=== PATIENT | female | born 1930 | race Caucasian/White ===

== ENCOUNTER 2017-04-07 10:02 | Inpatient (IN) | payer OTHER, MEDICARE ==
--- NOTE | 2017-04-07 11:00 | HP ---
CHIEF COMPLAINT: fatigue with increased shortness of breath PCP: Dr Marcial HISTORY OF PRESENT ILLNESS: Patient is a 86 y/o female with a past medical history of copd, chf, diverticulitis, coronary artery disease, hypertension, peripheral vascular disease, severe left carotid artery stenosis, and coronary artery disease. Patient reports 6 days of progressive shortness of breath and dyspnea upon exertion. Patient also reports fatigue. She reports a recent evaluation last month at [facility] vascular surgery for her severe left carotid stenosis and surgical intervention was deferred at this time. She was evaluated by her PCP, Dr Marcial for worsening of shortness of breath and weakness her hemoglobin was note to be 6.6, patient was referred for admission. Recent Travel: none PAST MEDICAL HISTORY: see hpi PAST SURGICAL HISTORY: left hip replacement Social History: resides at home alone Smoking: smokes 1 pack of cigarrettes daily Alcohol: 3 mixed drinks daily Drugs: none Family History: non contributory to this admission Allergies Penicillins Allergy (Verified 06/09/15 11:06) Itching CATS Allergy (Intermediate, Uncoded 06/09/15 11:06) cough and wheezing. HOME MEDICATIONS: Home Medications Medication Instructions Recorded Cholecalciferol (Vitamin D3) 2,000 unit PO DAILY capsule 12/29/12 [Vitamin D3] Aspirin [Aspirin EC] 81 mg PO DAILY 06/09/15 Polyethylene Glycol 3350 [Miralax 17 gm PO DAILY bottle 06/11/15 119 gm Btl -] REVIEW OF SYSTEMS CONSTITUTIONAL: present: generalized weakness, malaise Absent: fever, chills, diaphoresis, , loss of appetite, weight change HEENT: Absent: rhinorrhea, nasal congestion, throat pain, throat swelling, difficulty swallowing, mouth swelling, ear pain, eye pain, visual changes CARDIOVASCULAR: Absent: chest pain, syncope, palpitations, irregular heart rate, lightheadedness , peripheral edema RESPIRATORY: present: shortness of breath, dyspnea with exertion Absent: cough, orthopnea, wheezing, stridor, hemoptysis GASTROINTESTINAL: Absent: abdominal pain, abdominal distension, nausea, vomiting, diarrhea, constipation, melena, hematochezia GENITOURINARY: Absent: dysuria, frequency, urgency, hesitancy, hematuria, flank pain, genital pain MUSCULOSKELETAL: Absent: myalgia, arthralgia, joint swelling, back pain, neck pain SKIN: Absent: rash, itching, pallor HEMATOLOGIC/IMMUNOLOGIC: Absent: easy bleeding, easy bruising, lymphadenopathy, frequent infections ENDOCRINE: Absent: unexplained weight gain, unexplained weight loss, heat intolerance, cold intolerance NEUROLOGIC: Absent: headache, focal weakness or paresthesias, dizziness, unsteady gait, seizure, mental status changes, bladder or bowel incontinence PSYCHIATRIC: Absent: anxiety, depression, suicidal or homicidal ideation, hallucinations. PHYSICAL EXAMINATION Vital Signs - 24 hr 04/07/17 10:41 Pulse Rate 98 H O2 Sat by Pulse 98 Oximetry (%) GENERAL: Awake, alert, and fully oriented, in no acute distress. HEAD: Normal with no signs of trauma. EYES: Pupils equal, round and reactive to light, extraocular movements intact, sclera anicteric, conjunctiva clear. No lid lag. EARS, NOSE, THROAT: Ears normal, nares patent, oropharynx clear without exudates. Moist mucous membranes. NECK: Normal range of motion, supple without lymphadenopathy, JVD, or masses. LUNGS: Breath sounds equal, course rhonchi bilateral apexes, diminished to bases , with inspiratory wheeze, and no crackles. No accessory muscle use. HEART: Regular rate and rhythm, normal S1 and S2 without murmur, rub or gallop. ABDOMEN: Soft, nontender, not distended, normoactive bowel sounds, no guarding, no rebound, no masses. No hepatomegaly or splenomegaly. MUSCULOSKELETAL: Normal range of motion at all joints. No bony deformities or tenderness. No CVA tenderness. UPPER EXTREMITIES: 2+ pulses, warm, well-perfused. No cyanosis. No clubbing. No peripheral edema. LOWER EXTREMITIES: 2+ pulses, warm, well-perfused. No calf tenderness. +2 peripheral edema with venous stasis changes (chronic as per patient) NEUROLOGICAL: Cranial nerves II-XII intact. Normal speech. Normal gait. PSYCHIATRIC: Cooperative. Good eye contact. Appropriate mood and affect. SKIN: Warm, dry, normal turgor, no rashes or lesions noted, normal capillary refill. ASSESSMENT/PLAN: f/e/n - low sodium diet then npo after midnight for GI eval - replete lytes prn ppx - hold ac due to severe anemia - protonix - scd/elmer - oob - pt Problem List - Problem (1) Microcytic anemia Assessment/Plan: -hemoglobin 5.9 baseline 13, iron studies pending and stool guiac - 2 units of prbc ordered, repeat hgb at 1900 Code(s): D50.9 - IRON DEFICIENCY ANEMIA, UNSPECIFIED (2) Hypertension Assessment/Plan: - continue enalapril and lopressor, b/p at goal - strict b/p monitoring Code(s): I10 - ESSENTIAL (PRIMARY) HYPERTENSION (3) COPD exacerbation Assessment/Plan: - pending chest xray, continue advair and spirva - prn albuterol nebulizers - keep spo2 above 92% with supplemental O2 prn Code(s): J44.1 - CHRONIC OBSTRUCTIVE PULMONARY DISEASE W (ACUTE) EXACERBATION (4) Coronary artery disease Assessment/Plan: - pending lipid profile Code(s): I25.10 - ATHSCL HEART DISEASE OF [place] CORONARY ARTERY W/O ANG PCTRS (5) Congestive heart failure Assessment/Plan: - pt appears euvolemic on exam, strict i/o and daily weight - EKG nsr septal infarct, unchanged from prior ekg 2015 - pending echo - continue spironolactone, lasix in between blood transfusions Code(s): I50.9 - HEART FAILURE, UNSPECIFIED Qualifiers: Congestive heart failure type: unspecified congestive heart failure type Visit type - Emergency Visit Emergency Visit: No - New Patient This patient is new to me today: Yes Date on this admission: 04/07/17 - Critical Care Critical Care patient: Yes Total Critical Care Time (in minutes): 45 Critical Care Statement: The care of this patient involved high complexity decision making to prevent further life threatening deterioration of the patient 's condition and/or to evaluate & treat vital organ system(s) failure or risk of failure.
[2017-04-07] MEDS ORDERED: ALBUTEROL SO4 2.5/IPRATROPIUM 0.5 INH SOL 3 ML VIAL.NEB. NEB ONE (12:00)
[2017-04-07 12:17] LABS: ALBUMIN 3.4 g/dl (3.5-5.0); ALK PHOS 71 U/L (32-92); ANION GAP 8 (8-16); BILIRUBIN,TOTAL 0.7 mg/dl (0.2-1.0); CALCIUM 9.1 mg/dl (8.4-10.2); CO2 20 mmol/L (22-28); CREATININE 0.7 mg/dl (0.6-1.3); GLUCOSE,RANDOM 113 mg/dl (74-106); MAGNESIUM 1.7 mg/dL (1.8-2.4); PHOSPHOROUS 3.5 mg/dl (2.5-4.6); SGOT/AST 18 U/L (10-42); SGPT/ALT 11 U/L (10-40); TOT PROT 6.2 g/dl (6.4-8.3)
[2017-04-07 12:18] LABS: INR 1.19 (0.82-1.09); PROTHROMBIN TIME (PATIENT) 13.3 SEC (10.2-13.0)
[2017-04-07 12:25] LABS: TROPONIN I 0.02 ng/ml (0.00-0.05)
[2017-04-07] MEDS: NICOTINE 14 MG/24 HOURS TOPICAL PATCH TD SCH (12:35)
[2017-04-07 12:43] LABS: MEAN CELL VOLUME 65.9 fl (80-96)
[2017-04-07 12:47] LABS: MCHC 30.3 g/dl (32.0-36.0); MEAN PLT VOLUME 6.8 fl (7.5-11.1); PLATELET COUNT 331 K/MM3 (134-434); RDW 18.2 % (11.6-15.6); WHITE BLOOD COUNT 9.3 K/mm3 (4.0-10.8)
[2017-04-07] MEDS ORDERED: ALBUTEROL SO4 0.083% IH SOL 2.5 MG/3 ML VIAL.NEB. NEB PRN (12:58)
[2017-04-07] MEDS ORDERED: MAGNESIUM SULF 50% (8.12 MEQ/2 ML-1 GM VIAL) IVPB ONE (13:00)
[2017-04-07] MEDS ORDERED: FUROSEMIDE 40 MG/4 ML INJECTABLE VIAL IVPUSH ONE ×2 (13:15→18:45)
[2017-04-07 14:03] VITALS: BMI 23.3
[2017-04-07] MEDS ORDERED: PT OWN MED DRAWER 7, Y5N ONE ×2 (14:12→21:58)
[2017-04-07] MEDS: TIOTROPIUM BROMIDE 18 MCG/INH (DEVICE W/ 5 CAPSULES) IH SCH (14:24)
--- NOTE | 2017-04-07 16:28 | EKG ---
Test Reason : Blood Pressure : / mmHG Vent. Rate : 087 BPM Atrial Rate : 087 BPM P-R Int : 224 ms QRS Dur : 084 ms QT Int : 378 ms P-R-T Axes : 080 007 101 degrees QTc Int : 454 ms SINUS RHYTHM WITH 1ST DEGREE A-V BLOCK ANTEROSEPTAL INFARCT , AGE UNDETERMINED POOR R WAVE PROGRESSION ST depression in V5, consider ischemia NONSPECIFIC ST ABNORMALITY in I, aVL, and V4 ABNORMAL ECG NO PREVIOUS ECGS AVAILABLE Confirmed by WALTER VAZQUEZ MD ([id number]) on 04/07/2017 4:28:07 PM Referred By: DOYLE DEL VALLE Confirmed By:WALTER VAZQUEZ MD
[2017-04-07 17:55] LABS: URINE APPEARANCE Clear; URINE BILIRUBIN Negative (NEGATIVE); URINE BLOOD Negative (NEGATIVE); URINE GLUCOSE (UA) Negative (NEGATIVE); URINE KETONE Negative (NEGATIVE); URINE NITRITE Negative (NEGATIVE); URINE PROTEIN Negative (NEGATIVE); URINE UROBILINOGEN 0.2 (0.2-1.0)
[2017-04-07 17:57] LABS: URINE COLOR YELLOW; URINE LEUK ESTERASE 1+ (NEGATIVE)
[2017-04-07 20:07] LABS: URINE RBC 0-2 /hpf (0-3)
[2017-04-07 20:16] LABS: PLATELET ESTIMATE ADEQUATE
[2017-04-07] MEDS: BUDESONIDE/FORMETEROL FUMARATE 80/4.5 mcg INHALER IH SCH (22:05)
[2017-04-08] MEDS ORDERED: traMADol HCL 50 MG TABLET PO STA (01:36)
[2017-04-08 08:11] LABS: SERUM IRON 14 ug/dL (27-139); TOTAL IRON BINDING CAPACITY 448 ug/dL (250-450); UIBC 434 ug/dL (118-369)
[2017-04-08 08:59] LABS: BASOPHIL 0.2 % (0-2.0); EOSINOPHIL 1.8 % (0-4.5); MCHC 31.7 g/dl (32.0-36.0); MEAN CELL VOLUME 72.4 fl (80-96); MEAN PLT VOLUME 7.2 fl (7.5-11.1); NEUTROPHILS 74.7 % (42.8-82.8); PLATELET COUNT 294 K/MM3 (134-434); RDW 22.7 % (11.6-15.6); WHITE BLOOD COUNT 9.7 K/mm3 (4.0-10.8)
[2017-04-08 09:23] LABS: ANION GAP 10 (8-16); CALCIUM 8.8 mg/dl (8.4-10.2); CHOLESTEROL 108 mg/dl; CO2 21 mmol/L (22-28); CREATININE 0.7 mg/dl (0.6-1.3); GLUCOSE,RANDOM 110 mg/dl (74-106); MAGNESIUM 1.7 mg/dL (1.8-2.4); PHOSPHOROUS 3.4 mg/dl (2.5-4.6)
[2017-04-08] MEDS ORDERED: MAGNESIUM SULFATE 2 GM in SODIUM CHLORIDE 100 ML IVPB ONE (09:35)
--- NOTE | 2017-04-08 09:37 | PN ---
Physical Exam: SUBJECTIVE: Patient seen and examined, reports feeling better, reports an improvement of shortness of breath. OBJECTIVE: Patient is a 86 y/o female with a past medical history of copd, chf, diverticulitis, coronary artery disease, hypertension, peripheral vascular disease, severe left carotid artery stenosis, and coronary artery disease. patient was admitted for severe microcytic anemia. Vital Signs Period Temp Pulse Resp BP Sys/Ornelas Pulse Ox Last 24 Hr 97.6 F-98.2 F 85-100 18-19 95-125/51-73 96-100 GENERAL: The patient is awake, alert, and fully oriented, in no acute distress. HEAD: Normal with no signs of trauma. EYES: PERRL, extraocular movements intact, sclera anicteric, conjunctiva clear. No ptosis. ENT: Ears normal, nares patent, oropharynx clear without exudates, moist mucous membranes. NECK: Trachea midline, full range of motion, supple. LUNGS: Breath sounds equal, diminished to bases, course rhonchi to billateral apexes, no wheezes, no crackles, no accessory muscle use. HEART: Regular rate and rhythm, S1, S2 without murmur, rub or gallop. ABDOMEN: Soft, nontender, nondistended, normoactive bowel sounds, no guarding, no rebound, no hepatosplenomegaly, no masses. EXTREMITIES: 2+ pulses, warm, well-perfused, no edema. NEUROLOGICAL: Cranial nerves II through XII grossly intact. Normal speech, gait not observed. PSYCH: Normal mood, normal affect. SKIN: Warm, dry, normal turgor, no rashes or lesions noted Laboratory Results - last 24 hr CBC WBC 9.7 K/mm3 (4.0-10.8) 04/08/17 07:00 RBC 4.00 M/mm3 (3.60-5.2) D 04/08/17 07:00 Hgb 9.2 GM/dl (10.7-15.3) L D 04/08/17 07:00 Hct 29.0 % (32.4-45.2) L D 04/08/17 07:00 MCV 72.4 fl (80-96) L 04/08/17 07:00 MCH 23.0 pg (25.7-33.7) L 04/08/17 07:00 MCHC 31.7 g/dl (32.0-36.0) L 04/08/17 07:00 RDW 22.7 % (11.6-15.6) H D 04/08/17 07:00 Plt Count 294 K/MM3 (134-434) 04/08/17 07:00 MPV 7.2 fl (7.5-11.1) L 04/08/17 07:00 Neutrophils % 74.7 % (42.8-82.8) 04/08/17 07:00 Neutrophils % (Manual) 68.0 % (42.8-82.8) 04/07/17 11:45 Band Neutrophils % 2.0 % (0-10) 04/07/17 11:45 Lymphocytes % 12.9 % (8-40) D 04/08/17 07:00 Lymphocytes % (Manual) 24.0 % (8-40) 04/07/17 11:45 Monocytes % 10.4 % (3.8-10.2) H 04/08/17 07:00 Monocytes % (Manual) 4 % (3.8-10.2) 04/07/17 11:45 Eosinophils % 1.8 % (0-4.5) 04/08/17 07:00 Eosinophils % (Manual) 2.0 % (0-4.5) 04/07/17 11:45 Basophils % 0.2 % (0-2.0) 04/08/17 07:00 Platelet Estimate Adequate 04/07/17 11:45 Retic Count 2.34 % (0.5-1.5) H 04/07/17 12:30 CMP Sodium 129 mmol/L (136-145) L 04/08/17 07:00 Potassium 3.9 mmol/L (3.5-5.1) D 04/08/17 07:00 Chloride 98 mmol/L (98-107) 04/08/17 07:00 Carbon Dioxide 21 mmol/L (22-28) L 04/08/17 07:00 Anion Gap 10 (8-16) 04/08/17 07:00 BUN 9 mg/dl (7-18) D 04/08/17 07:00 Creatinine 0.7 mg/dl (0.6-1.3) 04/08/17 07:00 Creat Clearance w eGFR > 60 (>60) 04/07/17 11:45 POC Glucometer 107 UNITS (80-120) 04/08/17 07:02 Random Glucose 110 mg/dl (74-106) H 04/08/17 07:00 Calcium 8.8 mg/dl (8.4-10.2) 04/08/17 07:00 Phosphorus 3.4 mg/dl (2.5-4.6) 04/08/17 07:00 Magnesium 1.7 mg/dL (1.8-2.4) L 04/08/17 07:00 Iron 14 ug/dL (27-139) L 04/07/17 12:30 TIBC 448 ug/dL (250-450) 04/07/17 12:30 Iron Saturation 3 % (15-55) L 04/07/17 12:30 Ferritin 7.179 ng/ml (6.9-282.5) 04/07/17 12:30 Total Bilirubin 0.7 mg/dl (0.2-1.0) D 04/07/17 11:45 AST 18 U/L (10-42) 04/07/17 11:45 ALT 11 U/L (10-40) 04/07/17 11:45 Alkaline Phosphatase 71 U/L (32-92) 04/07/17 11:45 Troponin I 0.02 ng/ml (0.00-0.05) 04/07/17 11:45 B-Natriuretic Peptide 2553.43 pg/ml (5-450) H 04/07/17 11:45 Total Protein 6.2 g/dl (6.4-8.3) L 04/07/17 11:45 Albumin 3.4 g/dl (3.5-5.0) L 04/07/17 11:45 Triglycerides 71 mg/dl (35-160) D 04/08/17 07:00 Cholesterol 108 mg/dl 04/08/17 07:00 Total LDL Cholesterol 71 mg/dl 04/08/17 07:00 HDL Cholesterol 23 mg/dl (29-89) L D 04/08/17 07:00 TSH 0.53 uIU/ml (0.358-3.74) D 04/08/17 08:00 Laboratory Tests 04/07/17 04/07/17 12:30 12:30 Iron 14 L TIBC 448 Iron Saturation 3 L Ferritin 7.179 Laboratory Tests 04/08/17 08:00 Stool Occult Blood Negative Active Medications Generic Name Dose Route Start Last Admin Trade Name Freq PRN Reason Stop Dose Admin Albuterol Sulfate 1 amp 04/07/17 12:58 Ventolin 0.083% Nebulizer Soln - NEB Q4H PRN SHORT OF BREATH/WHEEZING Budesonide/Formoterol Fumarate 2 puff 04/07/17 22:00 04/07/17 22:05 Symbicort 80/4.5mcg - IH 2 puff BID MUKUND Administration Cholecalciferol 2,000 unit 04/08/17 10:00 Vitamin D3 - PO DAILY MUKUND Enalapril Maleate 5 mg 04/08/17 10:00 Vasotec - PO DAILY [facility] Magnesium Sulfate 2 gm/ Sodium 104 mls @ 100 mls/hr 04/08/17 09:35 Chloride IVPB 04/08/17 10:37 ONCE ONE Metoprolol Succinate 25 mg 04/08/17 10:00 Toprol Xl - PO DAILY [facility] Nicotine 14 mg 04/07/17 12:15 04/07/17 12:35 Nicoderm Patch - TD Not Given DAILY MUKUND Pantoprazole Sodium 40 mg 04/08/17 10:00 Protonix - PO DAILY [facility] Polyethylene Glycol 17 gm 04/08/17 10:00 Miralax (For Daily Use) - PO DAILY [facility] Spironolactone 25 mg 04/08/17 10:00 Aldactone - PO DAILY [facility] Tiotropium [place] 1 puff 04/07/17 12:15 04/07/17 14:24 Spiriva - IH 1 puff DAILY MUKUND Administration IMAGING chest xray: no acute pathology, stable 3mm nodule of left upper lobe ASSESSMENT/PLAN: 1) heme microcytic anemia - hemoglobin 9.7 after 2 units of prbc, baseline 13, iron studies notable for anemia of chronic disease - pending repeat cbc at 1500, stool guiac negative - pending egd today, Dr Damon, GI 2) cardiovascular hypertension - continue enalapril and lopressor, b/p at goal - strict b/p monitoring coronary artery disease - lipid profile wnl congestive heart failure - patient remains euvolemic on exam, strict i/o and daily weight - pending echo results - ekg nsr septal infarct, appreciate cardiology input - continue sprionalactone 3) pulmonary copd excerbation - continue advair and spriva with prn albuterol nebulizers - keep spo2 above 92% with supplemental O2 prn f/e/n -npo fpr egd - replete lytes prn ppx - hold ac due to severe anemia - protonix - scd/elmer - oob - pt dispo: requires inpatient admission Problem List - Problems (1) Microcytic anemia Code(s): D50.9 - IRON DEFICIENCY ANEMIA, UNSPECIFIED (2) Hypertension Code(s): I10 - ESSENTIAL (PRIMARY) HYPERTENSION Qualifiers: Hypertension type: essential hypertension Qualified Code(s): I10 - Essential (primary) hypertension (3) COPD exacerbation Code(s): J44.1 - CHRONIC OBSTRUCTIVE PULMONARY DISEASE W (ACUTE) EXACERBATION (4) Coronary artery disease Code(s): I25.10 - ATHSCL HEART DISEASE OF [place] CORONARY ARTERY W/O ANG PCTRS Qualifiers: Coronary Disease-Associated Artery/Lesion type: [place] artery [place] vs. transplanted heart: [place] heart Associated angina: without angina Qualified Code(s): I25.10 - Atherosclerotic heart disease of [place] coronary artery without angina pectoris (5) Congestive heart failure Code(s): I50.9 - HEART FAILURE, UNSPECIFIED Qualifiers: Congestive heart failure type: unspecified congestive heart failure type Visit type - Emergency Visit Emergency Visit: Yes ED Registration Date: 04/07/17 Care time: The patient presented to the Emergency Department on the above date and was hospitalized for further evaluation of their emergent condition. - New Patient This patient is new to me today: No - Critical Care Critical Care patient: No
[2017-04-08] MEDS ORDERED: PT OWN MED DRAWER 7, Y5N ONE ×4 (09:59→22:09)
[2017-04-08] MEDS ORDERED: MAGNESIUM SULF 50% (8.12 MEQ/2 ML-1 GM VIAL) IVPB ONE (10:00)
[2017-04-08] MEDS: ENALAPRIL MALEATE 5 MG TABLET (FP) PO SCH (10:13)
[2017-04-08] MEDS: METOPROLOL SUCCINATE 25 MG TAB.SR.24H (FP) PO SCH (10:13)
[2017-04-08] MEDS: SPIRONOLACTONE 25 MG TABLET (FP) PO SCH (10:13)
[2017-04-08] MEDS: PANTOPRAZOLE 40 MG TABLET (FP) PO SCH (10:15)
[2017-04-08] MEDS: POLYETHYLENE GLYCOL 3350 119 GM BTL PO SCH (10:15)
[2017-04-08] MEDS: TIOTROPIUM BROMIDE 18 MCG/INH (DEVICE W/ 5 CAPSULES) IH SCH (10:15)
[2017-04-08] MEDS: NICOTINE 14 MG/24 HOURS TOPICAL PATCH TD SCH (10:15)
[2017-04-08] MEDS: CHOLECALCIFEROL (VITAMIN D3) 1,000 UNIT TABLET (FP) PO SCH (10:16)
[2017-04-08] MEDS: BUDESONIDE/FORMETEROL FUMARATE 80/4.5 mcg INHALER IH SCH ×2 (10:16→22:18)
[2017-04-08] MEDS ORDERED: SODIUM CHLORIDE 1,000 ML IV SCH (11:15)
[2017-04-08 12:22] LABS: THYROID STIMULATING HORMONE 0.53 uIU/ml (0.358-3.74); THYROXINE (T4) 8.1 ug/dl (4.8-13.9)
[2017-04-08] MEDS ORDERED: PROPOFOL 20 ML ONE ×2 (15:55)
--- NOTE | 2017-04-08 18:02 | CON.CARD ---
Consult Consult Specialty:: Cardiology Referred by:: Hospitalist Medicine Reason for Consultation:: Dyspnea - History of Present Illness Chief Complaint: Dyspnea, weakness and fatigue History of Present Illness: PCP: Dr Marcial HISTORY OF PRESENT ILLNESS: Patient is a 86 y/o female with a past medical history of copd, chf, diverticulitis, coronary artery disease, hypertension, peripheral vascular disease, severe left carotid artery stenosis, and coronary artery disease who presented with progressive shortness of breath, dyspnea upon exertion and fatigue. She reports a recent evaluation last month at [facility] vascular surgery for her severe left carotid stenosis and surgical intervention was deferred at this time. She was evaluated by her PCP, Dr Marcial for worsening of shortness of breath and weakness her hemoglobin was note to be 6.6, transfused 2 U pRBC with improvement in symptoms, on ASA chronically. - History Source History Provided By: Patient Limitations to Obtaining History: No Limitations - Past Medical History Cardio/Vascular: Yes: CAD Gastrointestinal: Yes: GI Bleed - Alcohol/Substance Use Hx Alcohol Use: Yes - Smoking History Smoking history: Current every day smoker Have you smoked in the past 12 months: Yes Aproximately how many cigarettes per day: 30 Home Medications - Allergies Allergies/Adverse Reactions: Allergies Allergy/AdvReac Type Severity Reaction Status Date / Time Penicillins Allergy Itching Verified 06/09/15 11:06 CATS Allergy Intermediate cough and Uncoded 06/09/15 11:06 wheezing. - Home Medications Home Medications: Ambulatory Orders Cholecalciferol (Vitamin D3) [Vitamin D3] 2,000 unit PO DAILY capsule 12/29/12 Aspirin [Aspirin EC] 81 mg PO DAILY 06/09/15 Polyethylene Glycol 3350 [Miralax 119 gm Btl -] 17 gm PO DAILY bottle 06/11/15 Tramadol HCl 50 PO PRN PRN 04/07/17 Review of Systems - Review of Systems Constitutional: reports: Weakness Respiratory: reports: Exercise Intolerance, SOB on Exertion Vital Signs: Vital Signs Temperature 98.1 F 04/08/17 14:00 Pulse Rate 104 H 04/08/17 14:00 Respiratory Rate 19 04/08/17 14:00 Blood Pressure 93/68 04/08/17 14:00 O2 Sat by Pulse Oximetry (%) 97 04/08/17 14:00 Constitutional: Yes: No Distress, Calm Neck: Yes: Supple Respiratory: Yes: Regular, CTA Bilaterally Gastrointestinal: Yes: Soft, Hypoactive Bowel Sounds Cardiovascular: Yes: Regular Rate and Rhythm JVD: No Carotid Bruit: No Heart Sounds: Yes: S1, S2 Murmur: Yes: Systolic Murmur, Grade 1 Edema: No - Other Data Labs, Other Data: INR, PTT INR 1.19 (0.82-1.09) 04/07/17 11:45 NSR @84 PRWP Imaging - Results Chest X-ray: Report Reviewed (No acute pathology, stable 3mm nodule of left upper lobe) Problem List - Problems (1) Diastolic dysfunction without heart failure Code(s): I51.9 - HEART DISEASE, UNSPECIFIED (2) Dieulafoy lesion of stomach Code(s): K31.82 - DIEULAFOY LESION (HEMORRHAGIC) OF STOMACH AND DUODENUM (3) Coronary artery disease Code(s): I25.10 - ATHSCL HEART DISEASE OF [place] CORONARY ARTERY W/O ANG PCTRS Qualifiers: Coronary Disease-Associated Artery/Lesion type: [place] artery [place] vs. transplanted heart: [place] heart Associated angina: without angina Qualified Code(s): I25.10 - Atherosclerotic heart disease of [place] coronary artery without angina pectoris (4) Hypertension Code(s): I10 - ESSENTIAL (PRIMARY) HYPERTENSION Qualifiers: Hypertension type: essential hypertension Qualified Code(s): I10 - Essential (primary) hypertension (5) Microcytic anemia Code(s): D50.9 - IRON DEFICIENCY ANEMIA, UNSPECIFIED (6) Carotid stenosis, left Code(s): I65.22 - OCCLUSION AND STENOSIS OF LEFT CAROTID ARTERY (7) History of esophagogastroduodenoscopy Code(s): Z98.890 - OTHER SPECIFIED POSTPROCEDURAL STATES Assessment/Plan 1. 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 HTN/HCVD 3. CAD, angina pectoris 4. Diastolic dysfunction 5. HTN/HCVD 6. COPD 7. Left carotid stenosis P:1. Monitor Hgb post transfusion and transfuse to maintain Hgb>8.0 2. Continue PPI, hold resumption of ASA for one week to heal mucosa 3. Continue Vasotec 5 qd,Toprol XL 25 qd and Aldactone 25 qd 4. BD as needed 5. May d/c from CV standpoint once Hgb stable with f/u in office , vascular surgery f/u as outpatient 6. Thank you for consultative opportunity
[2017-04-08 18:48] LABS: ANION GAP 9 (8-16); CALCIUM 8.9 mg/dl (8.4-10.2); CO2 22 mmol/L (22-28); CREATININE 0.6 mg/dl (0.6-1.3); GLUCOSE,RANDOM 98 mg/dl (74-106)
[2017-04-08 18:52] LABS: BASOPHIL 0.5 % (0-2.0); EOSINOPHIL 1.5 % (0-4.5); MCH 22.4 pg (25.7-33.7); MCHC 30.8 g/dl (32.0-36.0); MEAN CELL VOLUME 72.7 fl (80-96); MEAN PLT VOLUME 7.8 fl (7.5-11.1); NEUTROPHILS 77.9 % (42.8-82.8); PLATELET COUNT 319 K/MM3 (134-434); WHITE BLOOD COUNT 9.6 K/mm3 (4.0-10.8)
[2017-04-08 23:38] LABS: ANISOCYTOSIS 2+; HYPOCHROMIA 2+; MICROCYTOSIS 1+; TARGET CELLS 1+; TEAR DROP CELLS 1+
[2017-04-09 06:52] VITALS: BP 128/63; PULSE 64; TEMP 98
[2017-04-09 08:23] LABS: BASOPHIL 0.5 % (0-2.0); EOSINOPHIL 1.6 % (0-4.5); MCH 23.3 pg (25.7-33.7); MCHC 31.8 g/dl (32.0-36.0); MEAN CELL VOLUME 73.1 fl (80-96); MEAN PLT VOLUME 7.2 fl (7.5-11.1); NEUTROPHILS 78.6 % (42.8-82.8); PLATELET COUNT 323 K/MM3 (134-434); RDW 22.7 % (11.6-15.6); WHITE BLOOD COUNT 10.1 K/mm3 (4.0-10.8)
[2017-04-09 08:56] LABS: ALBUMIN 3.7 g/dl (3.5-5.0); ALK PHOS 77 U/L (32-92); ANION GAP 8 (8-16); BILIRUBIN,TOTAL 1.2 mg/dl (0.2-1.0); CALCIUM 9.3 mg/dl (8.4-10.2); CO2 21 mmol/L (22-28); CREATININE 0.6 mg/dl (0.6-1.3); GLUCOSE,RANDOM 137 mg/dl (74-106); MAGNESIUM 1.8 mg/dL (1.8-2.4); PHOSPHOROUS 3.3 mg/dl (2.5-4.6); SGOT/AST 21 U/L (10-42); SGPT/ALT 12 U/L (10-40); TOT PROT 6.7 g/dl (6.4-8.3)
[2017-04-09] MEDS ORDERED: FERROUS SO4 325 MG TABLET (FP) PO SCH (09:30)
[2017-04-09] MEDS ORDERED: PT OWN MED DRAWER 7, Y5N ONE (09:57)
[2017-04-09] MEDS: SPIRONOLACTONE 25 MG TABLET (FP) PO SCH (09:58)
[2017-04-09] MEDS: PANTOPRAZOLE 40 MG TABLET (FP) PO SCH (09:59)
[2017-04-09] MEDS: POLYETHYLENE GLYCOL 3350 119 GM BTL PO SCH (10:00)
[2017-04-09] MEDS: CHOLECALCIFEROL (VITAMIN D3) 1,000 UNIT TABLET (FP) PO SCH (10:00)
[2017-04-09] MEDS: ENALAPRIL MALEATE 5 MG TABLET (FP) PO SCH (10:00)
[2017-04-09] MEDS: BUDESONIDE/FORMETEROL FUMARATE 80/4.5 mcg INHALER IH SCH (10:01)
[2017-04-09] MEDS: TIOTROPIUM BROMIDE 18 MCG/INH (DEVICE W/ 5 CAPSULES) IH SCH (10:01)
[2017-04-09] MEDS: METOPROLOL SUCCINATE 25 MG TAB.SR.24H (FP) PO SCH (10:01)
[2017-04-09] MEDS: NICOTINE 14 MG/24 HOURS TOPICAL PATCH TD SCH (10:01)
--- NOTE | 2017-04-09 11:22 | PN ---
Physical Exam: SUBJECTIVE: Patient seen and examined at the bedside. States she feels better, wants to go home. Assured her we are working on a safe discharge plan. States she lives alone but has an aide that helps her with her. OBJECTIVE: Vital Signs Period Temp Pulse Resp BP Sys/Ornelas Pulse Ox Last 24 Hr 97.8 F-98.1 F 64-104 17-20 93-147/35-70 96-98 GENERAL: The patient is awake, alert, and fully oriented, in no acute distress. HEAD: Normal with no signs of trauma. EYES: PERRL, extraocular movements intact, sclera anicteric, conjunctiva clear. ENT: Ears normal, nares patent, oropharynx clear without exudates, moist mucous membranes. NECK: Trachea midline, full range of motion, supple. LUNGS: Breath sounds equal, diminished at the bases, tolerating room air. HEART: Regular rate and rhythm, S1, S2 without murmur, rub or gallop. ABDOMEN: Soft, nontender, nondistended, normoactive bowel sounds, no guarding, no rebound, no hepatosplenomegaly, no masses. EXTREMITIES: 2+ pulses, warm, well-perfused, no edema. NEUROLOGICAL: Cranial nerves II through XII grossly intact. Normal speech, gait not observed. PSYCH: Normal mood, normal affect. SKIN: Warm, dry, normal turgor, no rashes or lesions noted. Laboratory Results - last 24 hr 04/08/17 04/08/17 04/08/17 08:00 15:20 15:20 WBC 9.6 RBC 4.18 Hgb 9.4 L Hct 30.4 L MCV 72.7 L MCH 22.4 L MCHC 30.8 L RDW 23.0 H Plt Count 319 MPV 7.8 Neutrophils % 77.9 Lymphocytes % 11.3 Monocytes % 8.8 Eosinophils % 1.5 Basophils % 0.5 Hypochromia 2+ Anisocytosis 2+ Microcytosis 1+ Target Cells 1+ Tear Drop Cells 1+ Sodium 129 L Potassium 4.1 Chloride 98 Carbon Dioxide 22 Anion Gap 9 BUN 9 Creatinine 0.6 Creat Clearance w eGFR Random Glucose 98 Calcium 8.9 Phosphorus Magnesium Total Bilirubin AST ALT Alkaline Phosphatase Total Protein Albumin TSH 0.53 D 04/09/17 04/09/17 08:00 08:00 WBC 10.1 RBC 4.16 Hgb 9.7 L Hct 30.4 L MCV 73.1 L MCH 23.3 L MCHC 31.8 L RDW 22.7 H Plt Count 323 MPV 7.2 L Neutrophils % 78.6 Lymphocytes % 11.8 Monocytes % 7.5 Eosinophils % 1.6 Basophils % 0.5 Hypochromia Anisocytosis Microcytosis Target Cells Tear Drop Cells Sodium 133 L Potassium 4.0 Chloride 104 Carbon Dioxide 21 L Anion Gap 8 BUN 6 L D Creatinine 0.6 Creat Clearance w eGFR > 60 Random Glucose 137 H D Calcium 9.3 Phosphorus 3.3 Magnesium 1.8 Total Bilirubin 1.2 H D AST 21 ALT 12 Alkaline Phosphatase 77 Total Protein 6.7 Albumin 3.7 TSH Active Medications Generic Name Dose Route Start Last Admin Trade Name Freq PRN Reason Stop Dose Admin Albuterol Sulfate 1 amp 04/07/17 12:58 Ventolin 0.083% Nebulizer Soln - NEB Q4H PRN SHORT OF BREATH/WHEEZING Budesonide/Formoterol Fumarate 2 puff 04/07/17 22:00 04/09/17 10:01 Symbicort 80/4.5mcg - IH 2 puff BID MUKUND Administration Cholecalciferol 2,000 unit 04/08/17 10:00 04/09/17 10:00 Vitamin D3 - PO 2,000 unit DAILY MUKUND Administration Enalapril Maleate 5 mg 04/08/17 10:00 04/09/17 10:00 Vasotec - PO 5 mg DAILY MUKUND Administration Ferrous Sulfate 325 mg 04/09/17 09:30 Feosol - PO DAILY [facility] Metoprolol Succinate 25 mg 04/08/17 10:00 04/09/17 10:01 Toprol Xl - PO 25 mg DAILY MUKUND Administration Nicotine 14 mg 04/07/17 12:15 04/09/17 10:01 Nicoderm Patch - TD Not Given DAILY MUKUND Pantoprazole Sodium 40 mg 04/08/17 10:00 04/09/17 09:59 Protonix - PO 40 mg DAILY MUKUND Administration Polyethylene Glycol 17 gm 04/08/17 10:00 04/08/17 10:15 Miralax (For Daily Use) - PO Not Given DAILY MUKUND Spironolactone 25 mg 04/08/17 10:00 04/09/17 09:58 Aldactone - PO 25 mg DAILY MUKUND Administration Tiotropium [place] 1 puff 04/07/17 12:15 04/09/17 10:01 Spiriva - IH 1 puff DAILY MUKUND Administration ASSESSMENT/PLAN: Patient is a 86 y/o female with a past medical history of copd, chf, diverticulitis, coronary artery disease, hypertension, peripheral vascular disease, severe left carotid artery stenosis, and coronary artery disease. patient was admitted for severe microcytic anemia. EGD, reviewed, PPI, avoid nsaids, follow up within 1 week with PCP Hematology: Microcytic anemia, improved S/P 2 units of prbcs hmg/hct 9.7/32.4 Started on Iron supplements daily Stool guiac negative EGD recommends: PPI daily, clears and advance slowly, no ASA/NSAIDs x 1 week, possible colonscopy if symptoms do not resolve. Repeat CBC in 1 week. Cardiovascular: hypertension, chronic On enalapril and Lopressor, b/p stable coronary artery disease Lipid profile reviewed CHF Monitor weights, intake and output Cleared by cardiology for d/c with followup in 1 week Pulmonary: copd excerbation, improved/resolved Lungs mostly clear to auscultation, continue, Advair, Spriva and Albuterol Smoking cessation, patient is in agreement Disposition: discharge home today with cardiology follow up in 1 week. Will need repeat CBC to assure her CBC is normalizing back to baseline. full code.
--- NOTE | 2017-04-09 12:54 | DS ---
Physical Exam: SUBJECTIVE: Patient seen and examined OBJECTIVE: Vital Signs Period Temp Pulse Resp BP Sys/Ornelas Pulse Ox Last 24 Hr 97.8 F-98.1 F 64-104 17-20 93-147/35-70 96-98 PHYSICAL EXAM GENERAL: The patient is awake, alert, and fully oriented, in no acute distress. HEAD: Normal with no signs of trauma. EYES: PERRL, extraocular movements intact, sclera anicteric, conjunctiva clear. ENT: Ears normal, nares patent, oropharynx clear without exudates, moist mucous membranes. NECK: Trachea midline, full range of motion, supple. LUNGS: Breath sounds equal, diminished at the bases, tolerating room air. HEART: Regular rate and rhythm, S1, S2 without murmur, rub or gallop. ABDOMEN: Soft, nontender, nondistended, normoactive bowel sounds, no guarding, no rebound, no hepatosplenomegaly, no masses. EXTREMITIES: 2+ pulses, warm, well-perfused, no edema. NEUROLOGICAL: Cranial nerves II through XII grossly intact. Normal speech, gait not observed. PSYCH: Normal mood, normal affect. SKIN: Warm, dry, normal turgor, no rashes or lesions noted. LABS Laboratory Results - last 24 hr 04/08/17 04/08/17 04/09/17 15:20 15:20 08:00 WBC 9.6 10.1 RBC 4.18 4.16 Hgb 9.4 L 9.7 L Hct 30.4 L 30.4 L MCV 72.7 L 73.1 L MCH 22.4 L 23.3 L MCHC 30.8 L 31.8 L RDW 23.0 H 22.7 H Plt Count 319 323 MPV 7.8 7.2 L Neutrophils % 77.9 78.6 Lymphocytes % 11.3 11.8 Monocytes % 8.8 7.5 Eosinophils % 1.5 1.6 Basophils % 0.5 0.5 Hypochromia 2+ Anisocytosis 2+ Microcytosis 1+ Target Cells 1+ Tear Drop Cells 1+ Sodium 129 L Potassium 4.1 Chloride 98 Carbon Dioxide 22 Anion Gap 9 BUN 9 Creatinine 0.6 Creat Clearance w eGFR Random Glucose 98 Calcium 8.9 Phosphorus Magnesium Total Bilirubin AST ALT Alkaline Phosphatase Total Protein Albumin 04/09/17 08:00 WBC RBC Hgb Hct MCV MCH MCHC RDW Plt Count MPV Neutrophils % Lymphocytes % Monocytes % Eosinophils % Basophils % Hypochromia Anisocytosis Microcytosis Target Cells Tear Drop Cells Sodium 133 L Potassium 4.0 Chloride 104 Carbon Dioxide 21 L Anion Gap 8 BUN 6 L D Creatinine 0.6 Creat Clearance w eGFR > 60 Random Glucose 137 H D Calcium 9.3 Phosphorus 3.3 Magnesium 1.8 Total Bilirubin 1.2 H D AST 21 ALT 12 Alkaline Phosphatase 77 Total Protein 6.7 Albumin 3.7 HOSPITAL COURSE: Date of Admission:04/07/17 Date of Discharge: 04/09/17 ASSESSMENT/PLAN: Patient is a 86 y/o female with a past medical history of copd, chf, diverticulitis, coronary artery disease, hypertension, peripheral vascular disease, severe left carotid artery stenosis, and coronary artery disease. patient was admitted for severe microcytic anemia. EGD, reviewed, PPI, avoid nsaids, follow up within 1 week with PCP Hematology: Microcytic anemia, improved S/P 2 units of prbcs hmg/hct 9.7/32.4 Started on Iron supplements daily Stool guiac negative EGD recommends: PPI daily, clears and advance slowly, no ASA/NSAIDs x 1 week, possible colonscopy if symptoms do not resolve. Repeat CBC in 1 week. Cardiovascular: hypertension, chronic On enalapril and Lopressor, b/p stable coronary artery disease Lipid profile reviewed CHF Monitor weights, intake and output Cleared by cardiology for d/c with followup in 1 week Pulmonary: copd excerbation, improved/resolved Lungs mostly clear to auscultation, continue, Advair, Spriva and Albuterol Smoking cessation, patient is in agreement Disposition: discharge home today with cardiology follow up in 1 week. Will need repeat CBC to assure her CBC is normalizing back to baseline. full code. Minutes to complete discharge: 60 Discharge Summary Reason For Visit: BLOOD LOSS, ANEMIA, COPD, VASCULOPATHY Current Active Problems COPD exacerbation (Acute) Carotid stenosis, left (Acute) Congestive heart failure (Acute) Coronary artery disease (Acute) Diastolic dysfunction without heart failure (Acute) Dieulafoy lesion of stomach (Acute) History of esophagogastroduodenoscopy (Acute) Hypertension (Acute) Microcytic anemia (Acute) Condition: Stable - Instructions Diet, Activity, Other Instructions: Mrs. Maxine Back had a EGD done on 04/08/2017. As per the exam, we recommend the followin. Protonix daily 1 hour before breakfast 2. Continue with clear liquid diet and advance slowly 3. No aspirin or NSAIDs for 5 to 7 days 4[address] Please see Dr. Marcial in 1 week and have your blood work re done, with possibility of colonoscopy 5. Continue Vasotec 5 qd,Toprol XL 25 qd and Aldactone 25 qd Please follow up with Dr. Sherman (Cardiology) within one week after discharge. Plse call and make an appointment @ for follow up. Disposition: HOME - Home Medications Comprehensive Discharge Medication List: Ambulatory Orders Cholecalciferol (Vitamin D3) [Vitamin D3] 2,000 unit PO DAILY capsule 12/29/12 Polyethylene Glycol 3350 [Miralax 119 gm Btl -] 17 gm PO DAILY bottle 06/11/15 Albuterol 0.083% Nebulizer Miley [Ventolin 0.083% Nebulizer Soln -] 1 amp NEB Q4H PRN amp 04/09/17 Budesonide/Formeterol Fumarate [SYMBICORT 80/4.5mcg -] 2 puff IH BID #1 inhaler 04/09/17 Ferrous Sulfate [Feosol] 325 mg PO DAILY #30 tab 04/09/17 Nicotine Patch [Nicoderm Patch -] 14 mg TD DAILY patch 04/09/17 Pantoprazole Sodium [Protonix -] 40 mg PO DAILY #30 tablet.ec 04/09/17 This patient is new to me today: Yes Date on this admission: 04/09/17 Emergency Visit: Yes ED Registration Date: 04/07/17 Care time: The patient presented to the Emergency Department on the above date and was hospitalized for further evaluation of their emergent condition. Critical Care patient: No - Discharge Referral Referred to [facility] Med P.C.: No
== END 2017-04-09 14:19 | disposition home or self-care (01) | DRG 811 ==
LOC: FM/S 10:02
PROVIDERS: ADMIT Internal Medicine; ATTEND Nurse Practitioner Family
PROC: 30233N1 Transfusion of Nonautologous Red Blood Cells into Peripheral Vein, Percutaneous Approach (ICD-10-PCS; principal; 2017-04-07)
PROC: 0W3P8ZZ Control Bleeding in Gastrointestinal Tract, Via Natural or Artificial Opening Endoscopic (ICD-10-PCS; 2017-04-08)
DX: D50.8 Other iron deficiency anemias (principal); K31.82 Dieulafoy lesion (hemorrhagic) of stomach and duodenum; J44.1 Chronic obstructive pulmonary disease with (acute) exacerbation; I25.10 Atherosclerotic heart disease of native coronary artery without angina pectoris; I73.89 Other specified peripheral vascular diseases; F17.210 Nicotine dependence, cigarettes, uncomplicated; I65.22 Occlusion and stenosis of left carotid artery; I11.0 Hypertensive heart disease with heart failure; Z88.0 Allergy status to penicillin
CPT/HCPCS: 36415; 36430; 71020-TC; 80048; 80053; 80061; 81003; 81015; 82272; 82728; 83540; 83550; 83735; 83880; 84100; 84436; 84443; 84484; 85025; 85044; 85610; 86850; 86900; 86901; 86922; 87086; 93005; 93306-TC; 94010; 94640; 97116-GP; 97161-GP; P9038; P9058

== ENCOUNTER 2017-05-31 18:20 | Observation (INO) | payer OTHER, MEDICARE ==
--- NOTE | 2017-05-31 19:28 | PDOC ---
History of Present Illness - General History Source: Patient Exam Limitations: No Limitations - History of Present Illness Initial Comments: 05/31/17 19:48 The patient is a 86-year-old female, with a significant past medical history of copd, chf, diverticulitis, coronary artery disease, hypertension, peripheral vascular disease, severe left carotid artery stenosis, and coronary artery disease, who presents to the ED with weakness for the past few days. The patient states that weakness is worse in the lower extremities. Today, the patient was unable to get to the commode from bed. She was admitted in the past for severe anemia and had a HGB of 5.6. Pt was transfused two units and was scoped but a source of bleeding was not found. PAST MEDICAL HISTORY: copd, chf, diverticulitis, coronary artery disease, hypertension, peripheral vascular disease, severe left carotid artery stenosis, and coronary artery disease PAST SURGICAL HISTORY: no significant history FAMILY HISTORY: no pertinent history HISTORY: Pt lives with family and is retired. MEDICATIONS: reviewed ALLERGIES: As per nursing notes Adult ROS General: (+)weakness. No fevers or chills, no weight loss HEENT: No change in vision. No sore throat,. No ear pain CardioVascular: No chest pain or shortness of breath Respiratory:No cough, or wheezing. Gastrointestinal: no nausea, vomiting, diarrhea or constipation, No rectal bleeding Genitourinary: No dysuria, hematuria, or frequency Musculoskeletal: No joint or muscle pain or swelling Neurologic: No headache, vertigo, dizziness or loss of consciousness Psychiatric: nor depression Skin: No rashes or easy bruising Endocrine: no increased thirst or abnormal weight change Allergic: no skin or latex allergy All other systems reviewed and normal Adult Exam: General: Well-nourished well-developed individual, no acute distress HEENT: Throat: (+)Dry mucous membranes. No tonsils normal, no erythema or exudate Neck: Supple, no meningeal signs, no lymphadenopathy Eyes::Pupils equal reactive and round, extraocular motion intact Chest: Nontender to palpation Cardiac: S1-S2 normal, regular rate and rhythm, no murmurs rubs or gallops Respiratory: (+)Tachypneic, decreased breath sounds bilaterally Abdomen: Soft, nondistended, normal bowel sounds, nontender to palpation diffusely Extremities: Warm, dry, no cyanosis, clubbing, or edema Skin: No rashes Neuro: Alert and oriented x3, nonfocal exam, grossly intact, normal gait Psych: Normal mood and affect <Julia Yanez - Last Filed: 05/31/17 20:41> - General History Source: Patient Exam Limitations: No Limitations - History of Present Illness Initial Comments: Medical decision making This is an 86-year-old female complaining of generalized weakness. We'll obtain a workup to rule out an infectious cause as patient is a little hypothermic and tachycardic. Sepsis workup protocol activated, labs sent including CBC, comp, blood cultures , urine, urine culture, EKG, chest x-ray, lactic acid. We will reassess post and a fluid bolus as patient does have a history of congestive heart failure and coronary artery disease. Chest x-ray no acute pathology as reviewed by me A portion of this note was documented by scribe services under my direction. I have reviewed the details of the note, within reason, and agree with the documentation. The case summary and management plan written by me 05/31/17 21:15 Reassessment patient remains hemodynamically stable in no acute distress however is complaining of some back pain which is chronic for her and requesting a Percocet which is what she would normally take for will medicate with a Percocet for her pain 05/31/17 21:18 assessment and plan: This is a 86-year-old female who comes in complaining of generalized weakness. Patient had a workup that included an EKG that was abnormal but unchanged from prior, a normal chest x-ray. Patient's white count was elevated with a left shift and her urine was positive for an acute urinary tract infection. Patient given ceftriaxone to cover her for the urine infection Given the patient's underlying comorbidities and age she will be in placed in an observation bed overnight and reevaluated in the morning to make sure that her clinical condition is improved prior to discharge. Discussed the admission with the hospitalist Dr. Shah who was accepted the patient to the observation bed <Maggie Yin I - Last Filed: 05/31/17 21:21> - General Chief Complaint: Weakness Stated Complaint: WEAKNESS Time Seen by Provider: 05/31/17 19:19 Past History <Julia Yanez - Last Filed: 05/31/17 20:41> - Past Medical History Anemia: Yes Asthma: No Cancer: No Cardiac Disorders: No CVA: No COPD: Yes CHF: No Dementia: No Diabetes: No GI Disorders: No Disorders: No HTN: Yes Hypercholesterolemia: No Liver Disease: No Seizures: No Thyroid Disease: No - Surgical History Abdominal Surgery: Yes (DIVERTICULITIS) Appendectomy: No Cardiac Surgery: No Cholecystectomy: No GI Surgery: Yes (PARITAL COLECTOMY) Lung Surgery: No Neurologic Surgery: No Orthopedic Surgery: Yes - Suicide/Smoking/Psychosocial Hx Smoking History: Current every day smoker Have you smoked in the past 12 months: Yes Number of Cigarettes Smoked Daily: 10 Information on smoking cessation initiated: Yes 'Breaking Loose' booklet given: 05/31/17 Hx Alcohol Use: Yes Drug/Substance Use Hx: No Substance Use Type: None Hx Substance Use Treatment: No <Maggie Yin I - Last Filed: 05/31/17 21:21> - Past Medical History Allergies/Adverse Reactions: Allergies Allergy/AdvReac Type Severity Reaction Status Date / Time Penicillins Allergy Itching Verified 05/31/17 18:26 CATS Allergy Intermediate cough and Uncoded 05/31/17 18:26 wheezing. Home Medications: Ambulatory Orders Cholecalciferol (Vitamin D3) [Vitamin D3] 2,000 unit PO DAILY capsule 12/29/12 Oxycodone HCl/Acetaminophen [Percocet 5-325 mg Tablet] 1 tab PO BID 05/31/17 Tiotropium [place] [Spiriva] 1 inh PO DAILY 05/31/17 Review of Systems - Review of Systems Able to Perform ROS?: Yes <Julia Yanez - Last Filed: 05/31/17 20:41> *Physical Exam - Vital Signs Last Vital Signs Temp Pulse Resp BP Pulse Ox 97.3 F L 102 H 20 136/94 97 05/31/17 18:20 05/31/17 18:20 05/31/17 18:20 05/31/17 18:20 05/31/17 18:20 <Julia Yanez - Last Filed: 05/31/17 20:41> - Vital Signs Last Vital Signs Temp Pulse Resp BP Pulse Ox 97.3 F L 102 H 20 136/94 97 05/31/17 18:20 05/31/17 18:20 05/31/17 18:20 05/31/17 18:20 05/31/17 18:20 <Maggie Yin I - Last Filed: 05/31/17 21:21> Heart Score/ECG Review - ECG Intrepretation Comment:: 05/31/17 20:42 EKG was reviewed by Dr. Martin at 20:22. Impression: Sinus tachycardia with 1st degree AV block with premature supraventricular complexes. Septal infarct, age undetermined. ST and T wave abnormality, consider lateral ischemia. Vent. rate: 118 bpm OH interval: 210 ms QTc: 465 ms <Julia Yanez - Last Filed: 05/31/17 20:41> ED Treatment Course - LABORATORY CBC & Chemistry Diagram: 05/31/17 19:30 05/31/17 19:30 <Julia Yanez - Last Filed: 05/31/17 20:41> - LABORATORY CBC & Chemistry Diagram: 05/31/17 19:30 05/31/17 19:30 <Maggie Yin I - Last Filed: 05/31/17 21:21> *DC/Admit/Observation/Transfer - Attestations Scribe Attestion: 05/31/17 19:52 Documentation prepared by Julia Yanez, acting as medical laboratory assistant for Maggie Yin MD. <Julia Yanez - Last Filed: 05/31/17 20:41> - Discharge Dispostion Admit: Yes <Maggie Yin I - Last Filed: 05/31/17 21:21> Diagnosis at time of Disposition: Cystitis - Discharge Dispostion Condition at time of disposition: Stable - Referrals Referrals: Lawson Marcial MD [Primary Care Provider] - - Patient Instructions - Post Discharge Activity
[2017-05-31 19:44] LABS: MEAN PLT VOLUME 7.9 fl (7.5-11.1)
[2017-05-31 19:47] LABS: HEMATOCRIT 37.9 % (32.4-45.2); HEMOGLOBIN 12.8 GM/dl (10.7-15.3); MCH 28.9 pg (25.7-33.7); MCHC 33.7 g/dl (32.0-36.0); MEAN CELL VOLUME 85.9 fl (80-96); PLATELET COUNT 296 K/MM3 (134-434); RBC 4.41 M/mm3 (3.60-5.2); RDW 30.2 % (11.6-15.6); WHITE BLOOD COUNT 13.6 K/mm3 (4.0-10.8)
[2017-05-31 19:52] LABS: INR 1.17 (0.82-1.09); PROTHROMBIN TIME (PATIENT) 13.1 SEC (10.2-13.0)
[2017-05-31 19:55] LABS: URINE APPEARANCE Clear; URINE BILIRUBIN Negative (NEGATIVE); URINE GLUCOSE (UA) Negative (NEGATIVE); URINE KETONE Negative (NEGATIVE); URINE NITRITE Negative (NEGATIVE); URINE PROTEIN Negative (NEGATIVE); URINE UROBILINOGEN 0.2 (0.2-1.0)
[2017-05-31 19:59] LABS: ALBUMIN 3.5 g/dl (3.5-5.0); ALK PHOS 77 U/L (32-92); ANION GAP 6 (8-16); BILIRUBIN,TOTAL 0.6 mg/dl (0.2-1.0); BLOOD UREA NITROGEN 16 mg/dl (7-18); CALCIUM 8.8 mg/dl (8.4-10.2); CHLORIDE 104 mmol/L (98-107); CO2 24 mmol/L (22-28); CREATININE 0.7 mg/dl (0.6-1.3); GLUCOSE,RANDOM 105 mg/dl (74-106); POTASSIUM 4.1 mmol/L (3.5-5.1); SGOT/AST 31 U/L (10-42); SGPT/ALT 20 U/L (10-40); SODIUM 134 mmol/L (136-145); TOT PROT 6.7 g/dl (6.4-8.3)
[2017-05-31 20:00] LABS: URINE BLOOD Trace-lysed (NEGATIVE); URINE COLOR YELLOW; URINE RBC 0-2 /hpf (0-3)
[2017-05-31 20:01] LABS: EPI CELLS FEW /HPF; URINE BACTERIA MODERATE /hpf (NEGATIVE); URINE WBC 20-40 (0-5)
[2017-05-31 20:08] LABS: TROPONIN I (DFP) < 0.03 ng/ml (0.03-0.50)
[2017-05-31 20:37] LABS: PLATELET ESTIMATE ADEQUATE
[2017-05-31] MEDS ORDERED: CEFTRIAXONE 1 GM in DEXTROSE 5%-WATER - 50 ML IVPB ONE (20:51)
[2017-05-31] MEDS ORDERED: cefTRIAXone SODIUM 1 GM VIAL ONE (21:03)
[2017-05-31] MEDS ORDERED: SODIUM CHLORIDE 1,000 ML IV ONE (21:14)
--- NOTE | 2017-05-31 22:59 | HP ---
CHIEF COMPLAINT: Weakness PCP: Dr. Marcial HISTORY OF PRESENT ILLNESS: This is a 86 y/o woman with a PMHx of: COPD, CHF, CAD, HTN, CAD, PVD, Carotid Stenosis, Diverticulitis. Who presents to the ED with weakness, several days. Patient reports having b/l leg pain which she attributes to Arthritis. Patient denies fever, chills, cough, dizziness, SOB, CP, AP, N/V/D, constipation, dysuria. ER course was notable for: (1) WBC 13.6 (2) UA- Trace lysed- blood, moderate Bacteria, leukocyte esterase-pending (3) Chest xray- borderline cardiomegaly B/L increased lung markings Recent Travel: None PAST MEDICAL HISTORY: See HPI PAST SURGICAL HISTORY: Social History: Smoking: Current Alcohol: None Drugs: None Lives alone Family History: Non-Contributory Allergies Penicillins Allergy (Verified 05/31/17 18:26) Itching CATS Allergy (Intermediate, Uncoded 05/31/17 18:26) cough and wheezing. HOME MEDICATIONS: Home Medications Medication Instructions Recorded Cholecalciferol (Vitamin D3) 2,000 unit PO DAILY capsule 12/29/12 [Vitamin D3] Oxycodone HCl/Acetaminophen 1 tab PO BID 05/31/17 [Percocet 5-325 mg Tablet] Tiotropium [place] [Spiriva] 1 inh PO DAILY 05/31/17 REVIEW OF SYSTEMS CONSTITUTIONAL: generalized weakness Absent: fever, chills, diaphoresis, malaise, loss of appetite, weight change HEENT: Absent: rhinorrhea, nasal congestion, throat pain, throat swelling, difficulty swallowing, mouth swelling, ear pain, eye pain, visual changes CARDIOVASCULAR: Absent: chest pain, syncope, palpitations, irregular heart rate, lightheadedness , peripheral edema RESPIRATORY: Absent: cough, shortness of breath, dyspnea with exertion, orthopnea, wheezing, stridor, hemoptysis GASTROINTESTINAL: Absent: abdominal pain, abdominal distension, nausea, vomiting, diarrhea, constipation, melena, hematochezia GENITOURINARY: Absent: dysuria, frequency, urgency, hesitancy, hematuria, flank pain, genital pain MUSCULOSKELETAL: Absent: myalgia, arthralgia, joint swelling, back pain, neck pain SKIN: Absent: rash, itching, pallor HEMATOLOGIC/IMMUNOLOGIC: Absent: easy bleeding, easy bruising, lymphadenopathy, frequent infections ENDOCRINE: Absent: unexplained weight gain, unexplained weight loss, heat intolerance, cold intolerance NEUROLOGIC: Absent: headache, focal weakness or paresthesias, dizziness, unsteady gait, seizure, mental status changes, bladder or bowel incontinence PSYCHIATRIC: Absent: anxiety, depression, suicidal or homicidal ideation, hallucinations. PHYSICAL EXAMINATION Vital Signs - 24 hr 05/31/17 05/31/17 05/31/17 18:20 21:39 21:58 Temperature 97.3 F L 98.9 F 98.7 F Pulse Rate 102 H Pulse Rate [ 115 H Left Apical] Respiratory 20 22 Rate Blood Pressure 136/94 Blood Pressure 122/68 [Right Arm] O2 Sat by Pulse 97 97 Oximetry (%) 05/31/17 22:55 Temperature 98.1 F Pulse Rate 113 H Pulse Rate [ Left Apical] Respiratory 20 Rate Blood Pressure 96/53 Blood Pressure [Right Arm] O2 Sat by Pulse 97 Oximetry (%) GENERAL: Awake, alert, and fully oriented, in no acute distress. HEAD: Normal with no signs of trauma. EYES: Pupils equal, round and reactive to light, extraocular movements intact, sclera anicteric, conjunctiva clear. No lid lag. EARS, NOSE, THROAT: Ears normal, nares patent, oropharynx clear without exudates. Moist mucous membranes. NECK: Normal range of motion, supple without lymphadenopathy, JVD, or masses. LUNGS: Breath sounds equal, clear to auscultation bilaterally. No wheezes, and no crackles. No accessory muscle use. HEART: Regular rate and rhythm, normal S1 and S2 without murmur, rub or gallop. ABDOMEN: Soft, nontender, not distended, normoactive bowel sounds, no guarding, no rebound, no masses. No hepatomegaly or splenomegaly. MUSCULOSKELETAL: Limited range of motion at all joints.+R- CVA tenderness. No bony deformities or tenderness. No L-CVA tenderness UPPER EXTREMITIES: 2+ pulses, warm, well-perfused. No cyanosis. No clubbing. No peripheral edema. LOWER EXTREMITIES: 2+ pulses, warm, well-perfused. No calf tenderness. No peripheral edema. NEUROLOGICAL: Cranial nerves II-XII intact. Normal speech. Gait not observed. PSYCHIATRIC: Cooperative. Good eye contact. Appropriate mood and affect. SKIN: Warm, dry, normal turgor, no rashes or lesions noted, normal capillary refill. [ Laboratory Results - last 24 hr 05/31/17 05/31/17 05/31/17 19:30 19:30 19:30 WBC 13.6 H D RBC 4.41 Hgb 12.8 D Hct 37.9 MCV 85.9 MCH 28.9 D MCHC 33.7 RDW 30.2 H Plt Count 296 MPV 7.9 Neutrophils % No Result Required. Neutrophils % (Manual) 76.0 Band Neutrophils % 2.0 Lymphocytes % No Result Required. Lymphocytes % (Manual) 12.0 D Monocytes % (Manual) 8 D Eosinophils % (Manual) 2.0 Platelet Estimate Adequate PT with INR 13.1 H INR 1.17 PTT (Actin FS) Sodium 134 L Potassium 4.1 Chloride 104 Carbon Dioxide 24 Anion Gap 6 L BUN 16 D Creatinine 0.7 Creat Clearance w eGFR > 60 Random Glucose 105 Lactic Acid Calcium 8.8 Total Bilirubin 0.6 D AST 31 D ALT 20 D Alkaline Phosphatase 77 Creatine Kinase Creatine Kinase Index CK-MB (CK-2) Troponin I Total Protein 6.7 Albumin 3.5 Urine Color Urine Appearance Urine pH Ur Specific [place] Urine Protein Urine Glucose (UA) Urine Ketones Urine Blood Urine Nitrite Urine Bilirubin Urine Urobilinogen Urine RBC Urine WBC Ur Epithelial Cells Urine Bacteria Blood Type Antibody Screen 05/31/17 05/31/17 05/31/17 19:30 19:30 19:30 WBC RBC Hgb Hct MCV MCH MCHC RDW Plt Count MPV Neutrophils % Neutrophils % (Manual) Band Neutrophils % Lymphocytes % Lymphocytes % (Manual) Monocytes % (Manual) Eosinophils % (Manual) Platelet Estimate PT with INR INR PTT (Actin FS) 26.8 Sodium Potassium Chloride Carbon Dioxide Anion Gap BUN Creatinine Creat Clearance w eGFR Random Glucose Lactic Acid Calcium Total Bilirubin AST ALT Alkaline Phosphatase Creatine Kinase 259 H Creatine Kinase Index 3.1 CK-MB (CK-2) 8.1 H Troponin I < 0.03 L Total Protein Albumin Urine Color Urine Appearance Urine pH Ur Specific [place] Urine Protein Urine Glucose (UA) Urine Ketones Urine Blood Urine Nitrite Urine Bilirubin Urine Urobilinogen Urine RBC Urine WBC Ur Epithelial Cells Urine Bacteria Blood Type O POSITIVE Antibody Screen Negative 05/31/17 05/31/17 19:45 20:00 WBC RBC Hgb Hct MCV MCH MCHC RDW Plt Count MPV Neutrophils % Neutrophils % (Manual) Band Neutrophils % Lymphocytes % Lymphocytes % (Manual) Monocytes % (Manual) Eosinophils % (Manual) Platelet Estimate PT with INR INR PTT (Actin FS) Sodium Potassium Chloride Carbon Dioxide Anion Gap BUN Creatinine Creat Clearance w eGFR Random Glucose Lactic Acid 1.1 Calcium Total Bilirubin AST ALT Alkaline Phosphatase Creatine Kinase Creatine Kinase Index CK-MB (CK-2) Troponin I Total Protein Albumin Urine Color Yellow Urine Appearance Clear Urine pH 7.0 Ur Specific [place] 1.015 Urine Protein Negative Urine Glucose (UA) Negative Urine Ketones Negative Urine Blood Trace-lysed H Urine Nitrite Negative Urine Bilirubin Negative Urine Urobilinogen 0.2 Urine RBC 0-2 Urine WBC 20-40 Ur Epithelial Cells Few Urine Bacteria Moderate Blood Type Antibody Screen ASSESSMENT/PLAN: This is a 86 y/o woman with a PMhx of: COPD, CHF, CAD, HTN, PVD, Carotid Artery Stenosis, Diverticulitis. Placed on Observation for Acute Cystitis. FEN - PO Fluids - Replete lytes prn - Low NA Diet Code Status: Full Code Dispo: Observation Problem List - Problem (1) Cystitis Code(s): N30.90 - CYSTITIS, UNSPECIFIED WITHOUT HEMATURIA (2) Atrial fibrillation Code(s): I48.91 - UNSPECIFIED ATRIAL FIBRILLATION (3) Coronary artery disease Code(s): I25.10 - ATHSCL HEART DISEASE OF [place] CORONARY ARTERY W/O ANG PCTRS Qualifiers: Coronary Disease-Associated Artery/Lesion type: [place] artery [place] vs. transplanted heart: [place] heart Associated angina: without angina Qualified Code(s): I25.10 - Atherosclerotic heart disease of [place] coronary artery without angina pectoris (4) Carotid stenosis, left Code(s): I65.22 - OCCLUSION AND STENOSIS OF LEFT CAROTID ARTERY (5) Hypertension Code(s): I10 - ESSENTIAL (PRIMARY) HYPERTENSION (6) DVT prophylaxis Code(s): BQF3296 - Visit type - Emergency Visit Emergency Visit: Yes ED Registration Date: 05/31/17 Care time: The patient presented to the Emergency Department on the above date and was hospitalized for further evaluation of their emergent condition. - New Patient This patient is new to me today: Yes Date on this admission: 05/31/17 - Critical Care Critical Care patient: No
[2017-05-31] MEDS ORDERED: ALBUTEROL SO4 0.083% IH SOL 2.5 MG/3 ML VIAL.NEB. NEB PRN (23:10)
[2017-05-31 23:29] VITALS: BMI 22.1
[2017-06-01 08:28] LABS: BASO % 0.5 % (0-2.0); EOS % 2.5 % (0-4.5); HEMATOCRIT 35.3 % (32.4-45.2); HEMOGLOBIN 11.3 GM/dl (10.7-15.3); LYMPH % 20.2 % (8-40); MCH 27.9 pg (25.7-33.7); MCHC 32.1 g/dl (32.0-36.0); MEAN CELL VOLUME 86.9 fl (80-96); MEAN PLT VOLUME 8.3 fl (7.5-11.1); MONO % 11.4 % (3.8-10.2); NEUT % 65.4 % (42.8-82.8); PLATELET COUNT 249 K/MM3 (134-434); RBC 4.06 M/mm3 (3.60-5.2); RDW 29.6 % (11.6-15.6); WHITE BLOOD COUNT 9.1 K/mm3 (4.0-10.8)
[2017-06-01 08:41] LABS: ANION GAP 8 (8-16); BLOOD UREA NITROGEN 12 mg/dl (7-18); CHLORIDE 105 mmol/L (98-107); CO2 22 mmol/L (22-28); CREATININE 0.6 mg/dl (0.6-1.3); GLUCOSE,RANDOM 90 mg/dl (74-106); MAGNESIUM 1.6 mg/dL (1.8-2.4); PHOSPHOROUS 3.4 mg/dl (2.5-4.6); SODIUM 135 mmol/L (136-145)
--- NOTE | 2017-06-01 08:56 | EKG ---
Test Reason : Blood Pressure : / mmHG Vent. Rate : 118 BPM Atrial Rate : 118 BPM P-R Int : 210 ms QRS Dur : 076 ms QT Int : 332 ms P-R-T Axes : 046 006 085 degrees QTc Int : 465 ms SINUS TACHYCARDIA WITH 1ST DEGREE A-V BLOCK WITH PREMATURE SUPRAVENTRICULAR COMPLEXES SEPTAL INFARCT (CITED ON OR BEFORE 07-APR-2017) NONSPECIFIC ST ABNORMALITY in I and aVL ST depression in V4-5, consider ischemia ABNORMAL ECG WHEN COMPARED WITH ECG OF 07-APR-2017 11:45, PREMATURE SUPRAVENTRICULAR COMPLEXES ARE NOW PRESENT ST depression noted in V4 now Confirmed by WALTER VAZQUEZ MD ([id number] on 06/01/2017 8:56:09 AM Referred By: DR BASSETT Confirmed By:WALTER VAZQUEZ MD
[2017-06-01 09:01] LABS: ADD RBC MORPHOLOGY YES
[2017-06-01] MEDS ORDERED: MAGNESIUM SULFATE 2 GM in SODIUM CHLORIDE 100 ML IVPB ONE (09:18)
[2017-06-01] MEDS: SPIRONOLACTONE 25 MG TABLET (FP) PO SCH (09:20)
[2017-06-01] MEDS: LEVOFLOXACIN 250 MG IVPB 250 MG/50 ML MG IVPB SCH (09:20)
--- NOTE | 2017-06-01 09:20 | PN ---
Physical Exam: SUBJECTIVE: Patient seen and examined, reports lower back pain, denies any tactile fevers. OBJECTIVE: Patient is a 86 y/o woman with a PMHx of: COPD, spinal stenosis, diastolic CHF, CAD, paroxysmal afib, HTN, CAD, PVD, Carotid Stenosis, anemia, and Diverticulitis. patient was admitted from the emergency department to observation for emergent condition. Vital Signs Period Temp Pulse Resp BP Sys/Ornelas Pulse Ox Last 24 Hr 97.3 F-98.9 F 53-115 18-22 96-136/37-94 93-97 GENERAL: The patient is awake, alert, and fully oriented, in no acute distress. HEAD: Normal with no signs of trauma. EYES: PERRL, extraocular movements intact, sclera anicteric, conjunctiva clear. No ptosis. ENT: Ears normal, nares patent, oropharynx clear without exudates, moist mucous membranes. NECK: Trachea midline, full range of motion, supple. LUNGS: Breath sounds equal, course rhonchi bilaterally throughout, no wheezes, no crackles, no accessory muscle use. HEART: Regular rate and rhythm, S1, S2 without murmur, rub or gallop. ABDOMEN: Soft, nontender, nondistended, normoactive bowel sounds, no guarding, no rebound, no hepatosplenomegaly, no masses. EXTREMITIES: 2+ pulses, warm, billateral venous stasis changes to loewr extremities, no edema. NEUROLOGICAL: Cranial nerves II through XII grossly intact. Normal speech, gait not observed. PSYCH: Normal mood, normal affect. SKIN: Warm, dry, normal turgor, no rashes or lesions noted Laboratory Results - last 24 hr CBC WBC 9.1 K/mm3 (4.0-10.8) D 06/01/17 07:25 RBC 4.06 M/mm3 (3.60-5.2) 06/01/17 07:25 Hgb 11.3 GM/dl (10.7-15.3) D 06/01/17 07:25 Hct 35.3 % (32.4-45.2) 06/01/17 07:25 MCV 86.9 fl (80-96) 06/01/17 07:25 MCH 27.9 pg (25.7-33.7) 06/01/17 07:25 MCHC 32.1 g/dl (32.0-36.0) 06/01/17 07:25 RDW 29.6 % (11.6-15.6) H 06/01/17 07:25 Plt Count 249 K/MM3 (134-434) 06/01/17 07:25 MPV 8.3 fl (7.5-11.1) 06/01/17 07:25 Neutrophils % 65.4 % (42.8-82.8) 06/01/17 07:25 Neutrophils % (Manual) 76.0 % (42.8-82.8) 05/31/17 19:30 Band Neutrophils % 2.0 % (0-10) 05/31/17 19:30 Lymphocytes % 20.2 % (8-40) D 06/01/17 07:25 Lymphocytes % (Manual) 12.0 % (8-40) D 05/31/17 19:30 Monocytes % 11.4 % (3.8-10.2) H 06/01/17 07:25 Monocytes % (Manual) 8 % (3.8-10.2) D 05/31/17 19:30 Eosinophils % 2.5 % (0-4.5) 06/01/17 07:25 Eosinophils % (Manual) 2.0 % (0-4.5) 05/31/17 19:30 Basophils % 0.5 % (0-2.0) 06/01/17 07:25 Hypochromia 1+ 06/01/17 07:25 Platelet Estimate Adequate 06/01/17 07:25 Anisocytosis 2+ 06/01/17 07:25 Target Cells 1+ 06/01/17 07:25 CMP Sodium 135 mmol/L (136-145) L 06/01/17 07:25 Potassium 4.0 mmol/L (3.5-5.1) 06/01/17 07:25 Chloride 105 mmol/L (98-107) 06/01/17 07:25 Carbon Dioxide 22 mmol/L (22-28) 06/01/17 07:25 Anion Gap 8 (8-16) 06/01/17 07:25 BUN 12 mg/dl (7-18) D 06/01/17 07:25 Creatinine 0.6 mg/dl (0.6-1.3) 06/01/17 07:25 Creat Clearance w eGFR > 60 (>60) 05/31/17 19:30 Random Glucose 90 mg/dl (74-106) 06/01/17 07:25 Lactic Acid 1.1 mmol/L (0.4-2.0) 05/31/17 20:00 Calcium 9.0 mg/dl (8.4-10.2) 06/01/17 07:25 Phosphorus 3.4 mg/dl (2.5-4.6) 06/01/17 07:25 Magnesium 1.6 mg/dL (1.8-2.4) L 06/01/17 07:25 Total Bilirubin 0.6 mg/dl (0.2-1.0) D 05/31/17 19:30 AST 31 U/L (10-42) D 05/31/17 19:30 ALT 20 U/L (10-40) D 05/31/17 19:30 Alkaline Phosphatase 77 U/L (32-92) 05/31/17 19:30 Creatine Kinase 259 IU/L (26-192) H 05/31/17 19:30 Creatine Kinase Index 3.1 % (0.0-5.0) 05/31/17 19:30 CK-MB (CK-2) 8.1 ng/mL (0.3-4.0) H 05/31/17 19:30 Troponin I < 0.03 ng/ml (0.03-0.50) L 05/31/17 19:30 Total Protein 6.7 g/dl (6.4-8.3) 05/31/17 19:30 Albumin 3.5 g/dl (3.5-5.0) 05/31/17 19:30 Active Medications Generic Name Dose Route Start Last Admin Trade Name Freq PRN Reason Stop Dose Admin Albuterol Sulfate 1 amp 05/31/17 23:10 Ventolin 0.083% Nebulizer Soln - NEB QID PRN SHORT OF BREATH/WHEEZING Levofloxacin 250 mg in 50 mls @ 50 mls/hr 06/01/17 10:00 Levaquin 250 Mg Premixed Ivpb - IVPB 06/04/17 09:59 DAILY MUKUND Magnesium Sulfate 2 gm/ Sodium 104 mls @ 100 mls/hr 06/01/17 09:18 Chloride IVPB 06/01/17 10:20 ONCE ONE Spironolactone 25 mg 06/01/17 10:00 Aldactone - PO DAILY MUKUND Tiotropium [place] 1 puff 06/01/17 10:00 Spiriva - IH DAILY MUKUND IMAGING CXR- no acute pathology ASSESSMENT/PLAN: 1) cardiovascular hypertension - labile b/p noted, hold home meds, enalapril and metroprol - strict b/p monitoring q4h paroxysmal afib - nsr at this time, pt is not on any AC, close monitoring CAD - continue ASA 2) MS spinal stenosis - will order ct scan of thoracic and lumbar spine - start prn oxycodone 5mg q6h and tylenol 650mg q4h - pt evaluation 3) pulm copd - no acute excerbation at this time, continue spiriva and symbicort with prn albuterol 4) UTI -wbc noted in UA, pending culture, continue levaquin - leukocytosis resolved, pt is afebrile f/e/n - low sodium diet - replete lytes prn ppx - heparin - scd - oob - pt dispo: pt requires observation admission Visit type - Emergency Visit Emergency Visit: Yes ED Registration Date: 05/31/17 Care time: The patient presented to the Emergency Department on the above date and was hospitalized for further evaluation of their emergent condition. - New Patient This patient is new to me today: Yes Date on this admission: 06/01/17 - Critical Care Critical Care patient: No - Discharge Referral Referred to [facility] Yes Physician Referral: Lawson Marcial MD (Int Med)
[2017-06-01] MEDS ORDERED: MAGNESIUM SULF 50% (8.12 MEQ/2 ML-1 GM VIAL) IVPB ONE (10:00)
[2017-06-01] MEDS: ASPIRIN 81 MG CHEWABLE TABLETS PO SCH (10:04)
[2017-06-01 11:08] LABS: ANISOCYTOSIS 2+; PLATELET ESTIMATE ADEQUATE; TARGET CELLS 1+
[2017-06-01] MEDS ORDERED: ACETAMINOPHEN 1000 MG/100 ML VIAL (NON FORMULARY) IVPB ONE (12:15)
[2017-06-01] MEDS: NICOTINE 14 MG/24 HOURS TOPICAL PATCH TD SCH (13:33)
[2017-06-01] MEDS: HEPARIN NA (PORCINE) 5,000 UNITS/ML 1ML VIAL SQ SCH ×2 (13:33→21:37)
[2017-06-01] MEDS ORDERED: PT OWN MED DRAWER 7, Y5N ONE (13:39)
[2017-06-01] MEDS: POLYETHYLENE GLYCOL 3350 119 GM BTL PO SCH (13:41)
[2017-06-01] MEDS: BUDESONIDE/FORMETEROL FUMARATE 160/4.5 mcg INHALER IH SCH ×2 (13:41→21:36)
[2017-06-01] MEDS: TIOTROPIUM BROMIDE 18 MCG/INH (DEVICE W/ 5 CAPSULES) IH SCH (13:42)
[2017-06-01] MEDS: FAMOTIDINE 20 MG TABLET PO SCH ×2 (13:42→21:36)
[2017-06-01] MEDS ORDERED: predniSONE 20 MG TABLET (UD) PO ONE (13:45)
[2017-06-01] MEDS ORDERED: SODIUM CHLORIDE 1,000 ML IV SCH (14:15)
[2017-06-01] MEDS ORDERED: SODIUM CHLORIDE 250 ML IV STA (14:31)
[2017-06-01] MEDS: oxyCODONE HCL 5 MG TABLET PO PRN (22:11)
[2017-06-02] MEDS: oxyCODONE HCL 5 MG TABLET PO PRN ×2 (04:35→15:09)
[2017-06-02] MEDS: HEPARIN NA (PORCINE) 5,000 UNITS/ML 1ML VIAL SQ SCH ×2 (06:06→15:09)
[2017-06-02] MEDS ORDERED: PT OWN MED DRAWER 7, Y5N ONE (09:49)
[2017-06-02] MEDS: FAMOTIDINE 20 MG TABLET PO SCH (09:56)
[2017-06-02] MEDS: ASPIRIN 81 MG CHEWABLE TABLETS PO SCH (09:56)
[2017-06-02] MEDS: SPIRONOLACTONE 25 MG TABLET (FP) PO SCH (09:56)
[2017-06-02] MEDS: BUDESONIDE/FORMETEROL FUMARATE 160/4.5 mcg INHALER IH SCH (09:57)
[2017-06-02] MEDS: TIOTROPIUM BROMIDE 18 MCG/INH (DEVICE W/ 5 CAPSULES) IH SCH (09:57)
[2017-06-02] MEDS: NICOTINE 14 MG/24 HOURS TOPICAL PATCH TD SCH (09:57)
[2017-06-02] MEDS: LEVOFLOXACIN 250 MG IVPB 250 MG/50 ML MG IVPB SCH (09:57)
[2017-06-02] MEDS ORDERED: KETOROLAC TROMETHAMINE 30 MG/1 ML VIAL IVPUSH ONE (10:00)
[2017-06-02] MEDS ORDERED: ENALAPRIL MALEATE 5 MG TABLET (FP) PO SCH (10:00)
[2017-06-02] MEDS ORDERED: METOPROLOL SUCCINATE 25 MG TAB.SR.24H (FP) PO SCH (10:00)
[2017-06-02] MEDS: POLYETHYLENE GLYCOL 3350 119 GM BTL PO SCH (10:07)
[2017-06-02] MEDS ORDERED: predniSONE 20 MG TABLET (UD) PO ONE (11:43)
--- NOTE | 2017-06-02 11:44 | DS ---
Physical Exam: SUBJECTIVE: Patient seen and examined, reports feeling much improved, denies any tactile fevers OBJECTIVE: Patient is a 86 y/o woman with a PMHx of: COPD, CHF, CAD, HTN, CAD , PVD, Carotid Stenosis, Diverticulitis. Who presents to the ED with weakness, several days. Patient reports having b/l leg pain which she attributes to Arthritis. Patient denies fever, chills, cough, dizziness, SOB, CP, AP, N/V/D, constipation, dysuria. ER course was notable for: (1) WBC 13.6 (2) UA- Trace lysed- blood, moderate Bacteria, leukocyte esterase-pending (3) Chest xray- borderline cardiomegaly B/L increased lung markings Vital Signs Period Temp Pulse Resp BP Sys/Ornelas Pulse Ox Last 24 Hr 98.2 F-98.5 F 89-102 18-19 77-152/44-87 94-97 PHYSICAL EXAM GENERAL: The patient is awake, alert, and fully oriented, in no acute distress. HEAD: Normal with no signs of trauma. EYES: PERRL, extraocular movements intact, sclera anicteric, conjunctiva clear. No ptosis. ENT: Ears normal, nares patent, oropharynx clear without exudates, moist mucous membranes. NECK: Trachea midline, full range of motion, supple. LUNGS: Breath sounds equal, course rhonchi bilaterally throughout, no wheezes, no crackles, no accessory muscle use. HEART: Regular rate and rhythm, S1, S2 without murmur, rub or gallop. ABDOMEN: Soft, nontender, nondistended, normoactive bowel sounds, no guarding, no rebound, no hepatosplenomegaly, no masses. EXTREMITIES: 2+ pulses, warm, billateral venous stasis changes to loewr extremities, no edema. NEUROLOGICAL: Cranial nerves II through XII grossly intact. Normal speech, gait not observed. PSYCH: Normal mood, normal affect. SKIN: Warm, dry, normal turgor, no rashes or lesions noted LABS CBC WBC 9.1 K/mm3 (4.0-10.8) D 06/01/17 07:25 RBC 4.06 M/mm3 (3.60-5.2) 06/01/17 07:25 Hgb 11.3 GM/dl (10.7-15.3) D 06/01/17 07:25 Hct 35.3 % (32.4-45.2) 06/01/17 07:25 MCV 86.9 fl (80-96) 06/01/17 07:25 MCH 27.9 pg (25.7-33.7) 06/01/17 07:25 MCHC 32.1 g/dl (32.0-36.0) 06/01/17 07:25 RDW 29.6 % (11.6-15.6) H 06/01/17 07:25 Plt Count 249 K/MM3 (134-434) 06/01/17 07:25 MPV 8.3 fl (7.5-11.1) 06/01/17 07:25 Neutrophils % 65.4 % (42.8-82.8) 06/01/17 07:25 Neutrophils % (Manual) 76.0 % (42.8-82.8) 05/31/17 19:30 Band Neutrophils % 2.0 % (0-10) 05/31/17 19:30 Lymphocytes % 20.2 % (8-40) D 06/01/17 07:25 Lymphocytes % (Manual) 12.0 % (8-40) D 05/31/17 19:30 Monocytes % 11.4 % (3.8-10.2) H 06/01/17 07:25 Monocytes % (Manual) 8 % (3.8-10.2) D 05/31/17 19:30 Eosinophils % 2.5 % (0-4.5) 06/01/17 07:25 Eosinophils % (Manual) 2.0 % (0-4.5) 05/31/17 19:30 Basophils % 0.5 % (0-2.0) 06/01/17 07:25 Hypochromia 1+ 06/01/17 07:25 Platelet Estimate Adequate 06/01/17 07:25 Anisocytosis 2+ 06/01/17 07:25 Target Cells 1+ 06/01/17 07:25 CMP Sodium 135 mmol/L (136-145) L 06/01/17 07:25 Potassium 4.0 mmol/L (3.5-5.1) 06/01/17 07:25 Chloride 105 mmol/L (98-107) 06/01/17 07:25 Carbon Dioxide 22 mmol/L (22-28) 06/01/17 07:25 Anion Gap 8 (8-16) 06/01/17 07:25 BUN 12 mg/dl (7-18) D 06/01/17 07:25 Creatinine 0.6 mg/dl (0.6-1.3) 06/01/17 07:25 Creat Clearance w eGFR > 60 (>60) 05/31/17 19:30 Random Glucose 90 mg/dl (74-106) 06/01/17 07:25 Lactic Acid 1.1 mmol/L (0.4-2.0) 05/31/17 20:00 Calcium 9.0 mg/dl (8.4-10.2) 06/01/17 07:25 Phosphorus 3.4 mg/dl (2.5-4.6) 06/01/17 07:25 Magnesium 1.6 mg/dL (1.8-2.4) L 06/01/17 07:25 Total Bilirubin 0.6 mg/dl (0.2-1.0) D 05/31/17 19:30 AST 31 U/L (10-42) D 05/31/17 19:30 ALT 20 U/L (10-40) D 05/31/17 19:30 Alkaline Phosphatase 77 U/L (32-92) 05/31/17 19:30 Creatine Kinase 259 IU/L (26-192) H 05/31/17 19:30 Creatine Kinase Index 3.1 % (0.0-5.0) 05/31/17 19:30 CK-MB (CK-2) 8.1 ng/mL (0.3-4.0) H 05/31/17 19:30 Troponin I < 0.03 ng/ml (0.03-0.50) L 05/31/17 19:30 Total Protein 6.7 g/dl (6.4-8.3) 05/31/17 19:30 Albumin 3.5 g/dl (3.5-5.0) 05/31/17 19:30 IMAGING CXR- no acute pathology CT of lumbar/thoracic spine: chronic to mild/moderate superior endplate of L3, grade 1 antherolithesis HOSPITAL COURSE: Patient was admitted from the emergency department to observation for intractable back pain, ct scan and lumbar/thoracic spine noted, patient was started on prednisone 60mg daily and neurotin 100mg TID. patient ambulated with the physical therapist, advised restorative care. However, patient declined inpatient rehab at SNF. consulted with social work, patient agreed to VNS and has established 24 hour nursing care at home. Patient has past medical history of hypertension, labile b/p noted on hospital day 1, gentle iv hydration given and patient is normotensive. Blood pressure medication was restarted on hospital day 2. patient does have a past medical history of paroxysmal afib, she remained in NSR. Aspirin was continued throughout admission. Symbicort and spiriva was continued for COPD, no acute excerbation was noted. urinalysis was notable for wbc, urine culture is pending, levaguin given for acute urinary tract infection. PLAN - discharge home with VNS and 24 hour nursing care - prednisone taper - follow up with pcp, Dr Marcial within 1 week Date of Discharge: 06/02/17 Minutes to complete discharge: 45 Discharge Summary Reason For Visit: CYSTITIS Current Active Problems Cystitis (Acute) Condition: Stable - Instructions Diet, Activity, Other Instructions: continue levaquin daily for the next 3 days for urinary tract infection continue prednisone, please take prednisone as prescribed continue all medications as prescribed please follow up with your PCP, Dr Marcial within 1 week if any new or persistent symptoms develop please return to the emergency department Referrals: Lawson Marcial MD [Primary Care Provider] - Disposition: VNS/HOME HEALTH CARE - Home Medications Comprehensive Discharge Medication List: Ambulatory Orders Cholecalciferol (Vitamin D3) [Vitamin D3] 2,000 unit PO DAILY capsule 12/29/12 Oxycodone HCl/Acetaminophen [Percocet 5-325 mg Tablet] 1 tab PO BID 05/31/17 Tiotropium [place] [Spiriva] 1 inh PO DAILY 05/31/17 This patient is new to me today: No Emergency Visit: Yes ED Registration Date: 05/31/17 Care time: The patient presented to the Emergency Department on the above date and was hospitalized for further evaluation of their emergent condition. Critical Care patient: No - Discharge Referral Referred to [facility] Med [facility]C.: Yes Physician Referral: Lawson Marcial MD (Int Med)
[2017-06-02] MEDS ORDERED: GABAPENTIN 100 MG CAPSULE (FP) PO SCH (14:00)
[2017-06-02 14:17] VITALS: BP 124/71; PULSE 51; TEMP 97.2
[2017-06-02 16:23] LABS: URINE APPEARANCE Clear; URINE BILIRUBIN Negative (NEGATIVE); URINE GLUCOSE (UA) Negative (NEGATIVE); URINE KETONE Negative (NEGATIVE); URINE NITRITE Negative (NEGATIVE); URINE PROTEIN Negative (NEGATIVE); URINE UROBILINOGEN 0.2 (0.2-1.0)
[2017-06-02 16:38] LABS: URINE BLOOD Trace-intact (NEGATIVE); URINE COLOR YELLOW
[2017-06-02 19:08] LABS: EPI CELLS FEW /HPF; URINE BACTERIA MODERATE /hpf (NEGATIVE); URINE WBC 20-40 (0-5)
== END 2017-06-02 16:40 | disposition home health service (06) ==
LOC: FER 18:20 → FM/S 21:46
PROVIDERS: ADMIT Internal Medicine; ATTEND Nurse Practitioner Family
PROC: 3E03329 Introduction of Other Anti-infective into Peripheral Vein, Percutaneous Approach (ICD-10-PCS; principal; 2017-05-31)
PROC: 3E033GC Introduction of Other Therapeutic Substance into Peripheral Vein, Percutaneous Approach (ICD-10-PCS; 2017-05-31)
PROC: 3E0333Z Introduction of Anti-inflammatory into Peripheral Vein, Percutaneous Approach (ICD-10-PCS; 2017-05-31)
PROC: 3E0337Z Introduction of Electrolytic and Water Balance Substance into Peripheral Vein, Percutaneous Approach (ICD-10-PCS; 2017-05-31)
PROC: 3E013GC Introduction of Other Therapeutic Substance into Subcutaneous Tissue, Percutaneous Approach (ICD-10-PCS; 2017-05-31)
PROC: 3E0F7GC Introduction of Other Therapeutic Substance into Respiratory Tract, Via Natural or Artificial Opening (ICD-10-PCS; 2017-05-31)
DX: N30.90 Cystitis, unspecified without hematuria (principal); I10 Essential (primary) hypertension; I50.9 Heart failure, unspecified; I25.10 Atherosclerotic heart disease of native coronary artery without angina pectoris; I48.0 Paroxysmal atrial fibrillation; I65.22 Occlusion and stenosis of left carotid artery; J44.9 Chronic obstructive pulmonary disease, unspecified; I73.9 Peripheral vascular disease, unspecified; D64.9 Anemia, unspecified; Z88.0 Allergy status to penicillin; Z91.048 Other nonmedicinal substance allergy status
CPT/HCPCS: 36415; 71045-TC; 72128-TC; 72131-TC; 80048; 80053; 81003; 81015; 82550; 82553; 83605; 83735; 84100; 84484; 85025; 85610; 85730; 86850; 86900; 86901; 87040; 87086; 93005; 94010; 94640; 96361; 96365; 96367; 96372; 96375; 97116-GP; 97161-GP; 99284-25; G0378; J1644

== ENCOUNTER 2017-06-08 10:58 | Inpatient (IN) | payer OTHER, MEDICARE ==
--- NOTE | 2017-06-08 11:02 | PDOC ---
History of Present Illness - General Chief Complaint: Weakness Stated Complaint: UNSTEADY GAIT DIFFICULTY FUNCTIONING AT HOME Time Seen by Provider: 06/08/17 11:01 - History of Present Illness Initial Comments: 06/08/17 11:21 86 yo F hx of COPD, CHF, CAD, HTN, CAD, PVD, carotid stenosis, diverticulitis, spinal stenosis who presents to the ED with progressive weakness on her RLE and RUE for 2-3 weeks. Pt was recently admitted for similar symptoms, although now states her right upper extremity is weaker and she is only able to lift it 4 inches. During her admission, it was recommended that she have rehabilitation at a halfway facility, however the patient was not amenable to this at the time. She requested 24-hour VNS services which have since been in place, but reports that she has not satisfied with those services and is still unable to get out of bed or ambulate. She reports her R arm was functionally normal 1 week ago and her weakness has gotten much worse since her last admission. She also reports sustaining a cut to her L billy on the metal part of a recliner, but she did not seek medical care at the time because she did not want to come to the hospital. She had a friend who was a physician clean and wrap it up at the time. Reports last tdap within the last 10 years. Denies any fevers, chills , chest pain, shortness of breath, abdominal pain, nausea, vomiting, diarrhea, urinary symptoms. Past History - Past Medical History Allergies/Adverse Reactions: Allergies Allergy/AdvReac Type Severity Reaction Status Date / Time Penicillins Allergy Itching Verified 06/08/17 11:01 CATS Allergy Intermediate cough and Uncoded 05/31/17 18:26 wheezing. Home Medications: Ambulatory Orders Albuterol Sulfate [Proair Hfa] 8.5 gm IH Q4HWA 06/08/17 Budesonide/Formeterol Fumarate [SYMBICORT 160/4.5mcg -] 2 inh PO BID 06/08/17 Cholecalciferol (Vitamin D3) [Vitamin D] 2,000 unit PO DAILY 06/08/17 Enalapril Maleate 5 mg PO DAILY 06/08/17 Famotidine 20 mg PO BID 06/08/17 Gabapentin [Neurontin -] 100 mg PO Q8H 06/08/17 Levofloxacin [Levaquin -] 250 mg PO DAILY 06/08/17 Metoprolol Succinate 25 mg PO DAILY 06/08/17 Nicotine Patch [Nicoderm Patch -] 1 patch TD DAILY 06/08/17 Oxycodone HCl 5 mg PO QID 06/08/17 Polyethylene Glycol 3350 [Miralax (For Daily Use) -] 17 gm PO DAILY 06/08/17 Prednisone See Taper PO DAILY 06/08/17 Spironolactone 25 mg PO DAILY 06/08/17 Tiotropium [place] [Spiriva] 1 inh PO DAILY 06/08/17 Anemia: Yes Asthma: No Cancer: No Cardiac Disorders: Yes (CAD) CVA: No COPD: Yes CHF: No Dementia: No Diabetes: No GI Disorders: Yes (diverticulitis) Disorders: No HTN: Yes Hypercholesterolemia: No Liver Disease: No Seizures: No Thyroid Disease: No - Surgical History Abdominal Surgery: Yes (DIVERTICULITIS) Appendectomy: No Cardiac Surgery: No Cholecystectomy: No GI Surgery: Yes (PARITAL COLECTOMY) Lung Surgery: No Neurologic Surgery: No Orthopedic Surgery: Yes - Suicide/Smoking/Psychosocial Hx Smoking History: Current every day smoker Have you smoked in the past 12 months: Yes Number of Cigarettes Smoked Daily: 10 'Breaking Loose' booklet given: 05/31/17 Hx Alcohol Use: Yes Drug/Substance Use Hx: No Substance Use Type: None Hx Substance Use Treatment: No Review of Systems - Review of Systems Comments:: 06/08/17 11:24 GENERAL/CONSTITUTIONAL: No fever or chills. No weakness. HEAD, EYES, EARS, NOSE AND THROAT: No change in vision. No ear pain or discharge. No sore throat. GASTROINTESTINAL: No nausea, vomiting, diarrhea or constipation. GENITOURINARY: No dysuria, frequency, or change in urination. CARDIOVASCULAR: No chest pain or shortness of breath. RESPIRATORY: No cough, wheezing, or hemoptysis. MUSCULOSKELETAL: No joint or muscle swelling or pain. No neck or back pain. SKIN: No rash NEUROLOGIC: No headache, vertigo, loss of consciousness, +weakness RUE and RLE ENDOCRINE: No increased thirst. No abnormal weight change. HEMATOLOGIC/LYMPHATIC: No anemia, easy bleeding, or history of blood clots. ALLERGIC/IMMUNOLOGIC: No hives or skin allergy. *Physical Exam - Physical Exam Comments: 06/08/17 11:24 GENERAL: Awake, alert, and fully oriented, in no acute distress. HEAD: No signs of trauma EYES: PERRLA, EOMI, sclera anicteric, conjunctiva clear ENT: Auricles normal inspection, hearing grossly normal, nares patent, oropharynx clear without exudates. Moist mucosa NECK: Normal ROM, supple, no lymphadenopathy, JVD, or masses LUNGS: Breath sounds equal, clear to auscultation bilaterally. No wheezes, and no crackles HEART: Regular rate and rhythm, normal S1 and S2, no murmurs, rubs or gallops ABDOMEN: Soft, nontender, normoactive bowel sounds. No guarding, no rebound. No masses EXTREMITIES: Normal range of motion, no edema. No clubbing or cyanosis. No cords, erythema, or tenderness NEUROLOGICAL: Normal speech, cranial nerves intact, +pronator drift on the R, 3 /5 strength in RUE and RLE, normal sensation to light touch in all 4 extremities , normal cerebellar exam, normal reflexes and tone, gait deferred SKIN: L proximal billy with hemostatic 9cm curvilinear laceration with no drainage. ED Treatment Course - LABORATORY CBC & Chemistry Diagram: 06/08/17 12:02 06/08/17 12:02 Medical Decision Making - Medical Decision Making 06/08/17 11:42 86-year-old female with multiple medical problems and recent progressive weakness presents to the emergency department with worsening weakness of the right upper extremity and right lower extremities. Vitals are unremarkable. Exam is significant for pronator drift on the right, and 3 out of 5 strength in the right upper and right lower extremities. Patient also has a deep laceration on her left billy that is approximately 3-4 days old. Laceration does not appear to be infected at the time, will heal by secondary intention. I dressed the wound with bacitracin, Telfa, and wrapped, tdap is UTD. Given the right-sided weakness, will obtain a CT scan of the head to evaluate for stroke. Patient will need admission for a halfway facility. 06/08/17 15:08 Labs with leukocytosis to 17.5. CMP remarkable for hyponatremia to 1:30, hyperkalemia of 5.4, and hyperbilirubinemia to 1.9, which are all new compared to labs here last week. Chest x-ray and UA are negative for infection. It's possible that these labs are slightly hemolyzed, upon discussion with nurse practitioner Tayla who will be admitting the patient, she will repeat the labs. CT head is negative for acute infarct, however given right-sided weakness will order an MRI for further evaluation for stroke. Case discussed in detail with admitting physician including history, physical exam and ancillary studies. Admitting physician has assumed care for the patient, will follow all pending diagnostics and will complete the evaluation and treatment. *DC/Admit/Observation/Transfer Diagnosis at time of Disposition: Right sided weakness - Discharge Dispostion Condition at time of disposition: Stable Admit: Yes - Referrals - Patient Instructions - Post Discharge Activity - Attestations Physician Attestion: 06/08/17 15:11 I, Dr. Skyler Vann MD, attest that this document has been prepared under my direction and personally reviewed by me in its entirety. I further attest, that it accurately reflects all work, treatment, procedures and medical decision -making performed by me.
[2017-06-08 11:18] VITALS: BMI 22.6
[2017-06-08 12:42] LABS: HEMATOCRIT 40.6 % (32.4-45.2); HEMOGLOBIN 13.4 GM/dl (10.7-15.3); MCH 29.2 pg (25.7-33.7); MCHC 33.1 g/dl (32.0-36.0); MEAN CELL VOLUME 88.3 fl (80-96); MEAN PLT VOLUME 8.2 fl (7.5-11.1); PLATELET COUNT 328 K/MM3 (134-434); RDW 28.7 % (11.6-15.6); WHITE BLOOD COUNT 17.5 K/mm3 (4.0-10.8)
[2017-06-08 13:24] LABS: INR 1.04 (0.82-1.09); PROTHROMBIN TIME (PATIENT) 11.6 SEC (10.2-13.0)
[2017-06-08 13:36] LABS: ALBUMIN 3.2 g/dl (3.5-5.0); ALK PHOS 83 U/L (32-92); ANION GAP 12 (8-16); BILIRUBIN,TOTAL 1.9 mg/dl (0.2-1.0); BLOOD UREA NITROGEN 23 mg/dl (7-18); CALCIUM 8.9 mg/dl (8.4-10.2); CHLORIDE 97 mmol/L (98-107); CO2 21 mmol/L (22-28); CREATININE 0.8 mg/dl (0.6-1.3); GLUCOSE,RANDOM 152 mg/dl (74-106); POTASSIUM 5.4 mmol/L (3.5-5.1); SGOT/AST 37 U/L (10-42); SGPT/ALT 37 U/L (10-40); SODIUM 130 mmol/L (136-145); TOT PROT 6.2 g/dl (6.4-8.3)
[2017-06-08 13:45] LABS: PH,URINE 7.5 (4.5-8); URINE APPEARANCE Clear; URINE BILIRUBIN Negative (NEGATIVE); URINE BLOOD Negative (NEGATIVE); URINE GLUCOSE (UA) Negative (NEGATIVE); URINE KETONE Negative (NEGATIVE); URINE NITRITE Negative (NEGATIVE); URINE PROTEIN Negative (NEGATIVE); URINE UROBILINOGEN 0.2 (0.2-1.0)
[2017-06-08 17:58] LABS: ANISOCYTOSIS 3+; MACROCYTOSIS 1+; PLATELET ESTIMATE ADEQUATE
[2017-06-08 18:22] LABS: ALBUMIN 3.3 g/dl (3.5-5.0); ALK PHOS 90 U/L (32-92); ANION GAP 12 (8-16); BILIRUBIN,TOTAL 0.7 mg/dl (0.2-1.0); BLOOD UREA NITROGEN 23 mg/dl (7-18); CALCIUM 9.1 mg/dl (8.4-10.2); CHLORIDE 99 mmol/L (98-107); CO2 21 mmol/L (22-28); CREATININE 0.8 mg/dl (0.6-1.3); GLUCOSE,RANDOM 118 mg/dl (74-106); PHOSPHOROUS 3.6 mg/dl (2.5-4.6); POTASSIUM 4.5 mmol/L (3.5-5.1); SGOT/AST 27 U/L (10-42); SGPT/ALT 34 U/L (10-40); SODIUM 132 mmol/L (136-145); TOT PROT 6.2 g/dl (6.4-8.3)
[2017-06-08 18:26] LABS: HEMATOCRIT 41.1 % (32.4-45.2); HEMOGLOBIN 13.5 GM/dl (10.7-15.3); MCH 28.9 pg (25.7-33.7); MCHC 32.8 g/dl (32.0-36.0); MEAN CELL VOLUME 88.2 fl (80-96); MEAN PLT VOLUME 8.4 fl (7.5-11.1); PLATELET COUNT 310 K/MM3 (134-434); RBC 4.66 M/mm3 (3.60-5.2); RDW 28.7 % (11.6-15.6); WHITE BLOOD COUNT 14.2 K/mm3 (4.0-10.8)
[2017-06-08] MEDS ORDERED: oxyCODONE HCL 5 MG TABLET PO PRN (18:52)
[2017-06-08] MEDS ORDERED: PT OWN MED DRAWER 7, Y5N ONE (19:21)
[2017-06-08] MEDS: HEPARIN NA (PORCINE) 5,000 UNITS/ML 1ML VIAL SQ SCH (21:14)
[2017-06-08] MEDS ORDERED: SODIUM CHLORIDE 1,000 ML IV SCH (22:45)
[2017-06-08] MEDS: FAMOTIDINE 20 MG TABLET PO SCH (22:58)
[2017-06-08] MEDS: GABAPENTIN 100 MG CAPSULE (FP) PO SCH (22:58)
[2017-06-08] MEDS: BUDESONIDE/FORMETEROL FUMARATE 160/4.5 mcg INHALER IH SCH (22:58)
--- NOTE | 2017-06-08 23:26 | HP ---
CHIEF COMPLAINT: Right sided weakness PCP: [facility] HISTORY OF PRESENT ILLNESS: This is an 86 year old female with a past medical history significant for spinal stenosis, CAD, CHF, HTN who presented with weakness to her Right side for 2-3 weeks but it has gotten much worse in the last week since she was DC on 06/02/17. ER course was notable for: (1) MRI brain with no acute brain findings (2) CT head with no acute findings Recent Travel: pt denies PAST MEDICAL HISTORY: COPD, CHF, HTN, PVD, aFIB, Carotid stenosis, spinal stenosis, diverticulitis PAST SURGICAL HISTORY: R THR 2011 L TKR 2001 colon resection secondary to diverticulitis 1993 hysterectomy R ankle ORIF Social History: Smokin.5 ppd x 40y Alcohol: 5-6 drinks daily, last drink weeks ago Drugs: pt denies Family History: mother age 84, alzheimers, [place] father age 60, ETOH no siblings no biological children Allergies Penicillins Allergy (Verified 06/08/17 11:01) Itching RASH CATS Allergy (Intermediate, Uncoded 05/31/17 18:26) cough and wheezing. HOME MEDICATIONS: 3 Medication Instructions Recorded Albuterol Sulfate [Proair Hfa] 8.5 gm IH Q4HWA 06/08/17 Budesonide/Formeterol Fumarate 2 inh PO BID 06/08/17 [SYMBICORT 160/4.5mcg -] Cholecalciferol (Vitamin D3) 2,000 unit PO DAILY 06/08/17 [Vitamin D] Enalapril Maleate 5 mg PO DAILY 06/08/17 Famotidine 20 mg PO BID 06/08/17 Gabapentin [Neurontin -] 100 mg PO Q8H 06/08/17 Levofloxacin [Levaquin -] 250 mg PO DAILY 06/08/17 Metoprolol Succinate 25 mg PO DAILY 06/08/17 Nicotine Patch [Nicoderm Patch -] 1 patch TD DAILY 06/08/17 Oxycodone HCl 5 mg PO QID 06/08/17 Polyethylene Glycol 3350 [Miralax 17 gm PO DAILY 06/08/17 (For Daily Use) -] Prednisone See Taper PO DAILY 06/08/17 Spironolactone 25 mg PO DAILY 06/08/17 Tiotropium [place] [Spiriva] 1 inh PO DAILY 06/08/17 REVIEW OF SYSTEMS CONSTITUTIONAL: Absent: fever, chills, diaphoresis, generalized weakness, malaise, loss of appetite, weight change HEENT: Absent: rhinorrhea, nasal congestion, throat pain, throat swelling, difficulty swallowing, mouth swelling, ear pain, eye pain, visual changes CARDIOVASCULAR: Absent: chest pain, syncope, palpitations, irregular heart rate, lightheadedness , peripheral edema RESPIRATORY: Absent: cough, shortness of breath, dyspnea with exertion, orthopnea, wheezing, stridor, hemoptysis GASTROINTESTINAL: Absent: abdominal pain, abdominal distension, nausea, vomiting, diarrhea, constipation, melena, hematochezia GENITOURINARY: Absent: dysuria, frequency, urgency, hesitancy, hematuria, flank pain, genital pain MUSCULOSKELETAL: Absent: myalgia, arthralgia, joint swelling, back pain, neck pain SKIN: Absent: rash, itching, pallor HEMATOLOGIC/IMMUNOLOGIC: Absent: easy bleeding, easy bruising, lymphadenopathy, frequent infections ENDOCRINE: Absent: unexplained weight gain, unexplained weight loss, heat intolerance, cold intolerance NEUROLOGIC: Present: right sided weakness Absent: headache, focal weakness or paresthesias, dizziness, unsteady gait, seizure, mental status changes, bladder or bowel incontinence PSYCHIATRIC: Absent: anxiety, depression, suicidal or homicidal ideation, hallucinations. PHYSICAL EXAMINATION Vital Signs - 24 hr 3 06/08/17 06/08/17 06/08/17 11:00 13:00 13:30 Temperature 97.8 F Pulse Rate 69 Pulse Rate [ 87 89 Radial] Respiratory 18 18 20 Rate Blood Pressure 135/62 Blood Pressure 93/79 101/55 [Right Arm] O2 Sat by Pulse 99 97 Oximetry (%) 3 06/08/17 06/08/17 06/08/17 06/08/17 14:00 15:00 16:07 20:46 Temperature 98.0 F 97.8 F Pulse Rate 11 L 104 H Pulse Rate [ 82 96 H Radial] Respiratory 20 20 20 20 Rate Blood Pressure 117/70 107/46 Blood Pressure 89/46 96/64 [Right Arm] O2 Sat by Pulse 100 100 100 Oximetry (%) GENERAL: Awake, alert, and fully oriented, in no acute distress. HEAD: Normal with no signs of trauma. EYES: Pupils equal, round and reactive to light, extraocular movements intact, sclera anicteric, conjunctiva clear. No lid lag. EARS, NOSE, THROAT: Ears normal, nares patent, oropharynx clear without exudates. Moist mucous membranes. NECK: Normal range of motion, supple without lymphadenopathy, JVD, or masses. LUNGS: Breath sounds equal, clear to auscultation bilaterally. No wheezes, and no crackles. No accessory muscle use. HEART: Regular rate and rhythm, normal S1 and S2 without murmur, rub or gallop. ABDOMEN: Soft, nontender, not distended, normoactive bowel sounds, no guarding, no rebound, no masses. No hepatomegaly or splenomegaly. MUSCULOSKELETAL: Normal range of motion at all joints. No bony deformities or tenderness. No CVA tenderness. Muscle strength: RUE 4-/5, LUE 4/5, RLE 3/5, LLE 4/5 UPPER EXTREMITIES: 2+ pulses, warm, well-perfused. No cyanosis. No clubbing. No peripheral edema. LOWER EXTREMITIES: 2+ pulses, warm, well-perfused. No calf tenderness. No peripheral edema. NEUROLOGICAL: Cranial nerves II-XII intact. Normal speech. Normal gait. PSYCHIATRIC: Cooperative. Good eye contact. Appropriate mood and affect. SKIN: Warm, dry, normal turgor, no rashes or lesions noted, normal capillary refill. left billy with large 3 corner deep laceration, 6 days old, no significant erythema, no significant discharge. Laboratory Results - last 24 hr 3 06/08/17 06/08/17 06/08/17 12:02 12:02 12:02 WBC 17.5 H D RBC 4.60 Hgb 13.4 D Hct 40.6 D MCV 88.3 MCH 29.2 MCHC 33.1 RDW 28.7 H Plt Count 328 MPV 8.2 Neutrophils % No Result Required. Neutrophils % (Manual) 87.0 H Band Neutrophils % 2.0 Lymphocytes % No Result Required. Lymphocytes % (Manual) 10.0 Monocytes % (Manual) 1 L Platelet Estimate Adequate Anisocytosis 3+ Macrocytosis 1+ PT with INR 11.6 INR 1.04 Sodium 130 L Potassium 5.4 H D Chloride 97 L Carbon Dioxide 21 L Anion Gap 12 BUN 23 H D Creatinine 0.8 D Creat Clearance w eGFR > 60 Random Glucose 152 H D Calcium 8.9 Phosphorus Total Bilirubin 1.9 H D AST 37 ALT 37 D Alkaline Phosphatase 83 Creatine Kinase Troponin I Total Protein 6.2 L Albumin 3.2 L Cholesterol Total LDL Cholesterol HDL Cholesterol Urine Color Urine Appearance Urine pH Ur Specific [place] Urine Protein Urine Glucose (UA) Urine Ketones Urine Blood Urine Nitrite Urine Bilirubin Urine Urobilinogen Blood Type Antibody Screen 3 06/08/17 06/08/17 06/08/17 12:02 12:02 12:06 WBC RBC Hgb Hct MCV MCH MCHC RDW Plt Count MPV Neutrophils % Neutrophils % (Manual) Band Neutrophils % Lymphocytes % Lymphocytes % (Manual) Monocytes % (Manual) Platelet Estimate Anisocytosis Macrocytosis PT with INR INR Sodium Potassium Chloride Carbon Dioxide Anion Gap BUN Creatinine Creat Clearance w eGFR Random Glucose Calcium Phosphorus Total Bilirubin AST ALT Alkaline Phosphatase Creatine Kinase 29 Troponin I 0.01 Total Protein Albumin Cholesterol 150 Total LDL Cholesterol 99 HDL Cholesterol 34 D Urine Color yellow Urine Appearance Clear Urine pH 7.5 Ur Specific [place] 1.015 Urine Protein Negative Urine Glucose (UA) Negative Urine Ketones Negative Urine Blood Negative Urine Nitrite Negative Urine Bilirubin Negative Urine Urobilinogen 0.2 Blood Type Cancelled Antibody Screen Cancelled 3 06/08/17 06/08/17 17:20 17:20 WBC 14.2 H RBC 4.66 Hgb 13.5 Hct 41.1 MCV 88.2 MCH 28.9 MCHC 32.8 RDW 28.7 H Plt Count 310 MPV 8.4 Neutrophils % No Result Required. Neutrophils % (Manual) Band Neutrophils % Lymphocytes % No Result Required. Lymphocytes % (Manual) Monocytes % (Manual) Platelet Estimate Anisocytosis Macrocytosis PT with INR INR Sodium 132 L Potassium 4.5 Chloride 99 Carbon Dioxide 21 L Anion Gap 12 BUN 23 H Creatinine 0.8 Creat Clearance w eGFR > 60 Random Glucose 118 H D Calcium 9.1 Phosphorus 3.6 Total Bilirubin 0.7 D AST 27 D ALT 34 Alkaline Phosphatase 90 Creatine Kinase Troponin I Total Protein 6.2 L Albumin 3.3 L Cholesterol Total LDL Cholesterol HDL Cholesterol Urine Color Urine Appearance Urine pH Ur Specific [place] Urine Protein Urine Glucose (UA) Urine Ketones Urine Blood Urine Nitrite Urine Bilirubin Urine Urobilinogen Blood Type Antibody Screen ECG sinus rhythm with premature supraventricular complexes vs wandering atrial pacemaker septal infact age undetermined poor baseline, interpretation may be affected No obvious acute t wave changes Radiology Reports MRI Brain IMPRESSION: No discrete infarct is identified. A 3 mm chronic microbleed is seen within the left internal capsule posteriorly. Mild periventricular chronic microvascular ischemic changes are seen. Complete versus near complete occlusion of the left internal carotid artery as discussed above. This finding was also described on an MRA exam of 02/15/2017. Within the partially imaged upper cervical spine at the C3-C4 level central canal stenosis is noted which is probably at least moderate to marked. If clinically indicated additional evaluation utilizing a dedicated cervical spine MRI study may be performed. Reported By: Param Orozco MD 06/08/17 1705 CXR IMPRESSION: No acute disease. Reported By: Randal Nesbitt MD 06/08/[address] head IMPRESSION: Moderate atrophy and mild chronic microvascular ischemic changes. No gross acute intracranial pathology is identified. Correlate clinically to determine further evaluation and follow-up Reported By: Jude Talbot MD 06/08/17 1320 ASSESSMENT/PLAN: 86yF with PMH COPD, CHF, HTN, PVD, aFIB, Carotid stenosis, spinal stenosis, diverticulitis presented to the ED with right sided weakness and inability to walk. Right sided weakness - MRI and CT neg for acute CVA - MRI with mod to marked spinal stenosis with canal narrowing, MRI cspine done 12/2016 - will need PT - consider neuro and neurosurgical consult hyponatremia, mild - likely due to hypovolemia - NS @ 100cc/hr COPD - was dc home on prednisone taper on 06/02/17. Should have completed today. Pt is unsure if she completed taper. No active wheezing, will not order steroids - cont home symbicort and spiriva - albuterol nebs PRN. - active smoker, nicoderm patch ordered. LLE wound in setting of PVD - cont daily dressing changes with xeroform - consider vascular consult CHF/HTN - cont home enalapril, spironolactone, toprol Afib - not on AC/unclear why, ECG without afib at present - cont toprol Carotid stenosis - present on previous imaging. DVT PPX - heparin 5000u TID FEN - NS @100cc/hr - BMP in am - low sodium diet as tolerated Dispo: Pt currently requires further observation for management of her emergent condition. Visit type - Emergency Visit Emergency Visit: Yes ED Registration Date: 06/08/17 Care time: The patient presented to the Emergency Department on the above date and was hospitalized for further evaluation of their emergent condition. - New Patient This patient is new to me today: Yes Date on this admission: 06/08/17 - Critical Care Critical Care patient: No
[2017-06-09] MEDS ORDERED: ALBUTEROL SO4 0.083% IH SOL 2.5 MG/3 ML VIAL.NEB. NEB PRN (00:44)
[2017-06-09] MEDS ORDERED: MAGNESIUM HYDROX 2400MG/30ML ORAL SUSPENSION 30 ML CUP PO PRN (00:46)
[2017-06-09] MEDS: oxyCODONE HCL 5 MG TABLET PO PRN ×2 (01:20→13:00)
[2017-06-09] MEDS: ACETAMINOPHEN 325 MG TABLET (FP) PO PRN (01:21)
[2017-06-09] MEDS: HEPARIN NA (PORCINE) 5,000 UNITS/ML 1ML VIAL SQ SCH ×3 (06:07→22:05)
[2017-06-09] MEDS: GABAPENTIN 100 MG CAPSULE (FP) PO SCH ×3 (06:08→22:05)
[2017-06-09 08:46] LABS: BASO % 0.3 % (0-2.0); EOS % 2.4 % (0-4.5); HEMATOCRIT 34.4 % (32.4-45.2); HEMOGLOBIN 11.4 GM/dl (10.7-15.3); LYMPH % 26.7 % (8-40); MCHC 33.1 g/dl (32.0-36.0); MEAN CELL VOLUME 87.6 fl (80-96); MEAN PLT VOLUME 8.9 fl (7.5-11.1); MONO % 9.9 % (3.8-10.2); NEUT % 60.7 % (42.8-82.8); PLATELET COUNT 269 K/MM3 (134-434); RBC 3.93 M/mm3 (3.60-5.2); RDW 28.3 % (11.6-15.6); WHITE BLOOD COUNT 10.6 K/mm3 (4.0-10.8)
--- NOTE | 2017-06-09 08:50 | PN ---
Physical Exam: SUBJECTIVE: Patient seen and examined, reports ongoing back pain and right sided weakness OBJECTIVE: patient is a 86 y/o female with a past medical history of COPD, CHF , HTN, PVD, aFIB, Carotid stenosis, spinal stenosis, and diverticulitis. Patient was admitted from the emergency department for emergent condition. Vital Signs Period Temp Pulse Resp BP Sys/Ornelas Pulse Ox Last 24 Hr 97.8 F-98.0 F 11-104 18-20 89-150/46-79 97-100 GENERAL: Awake, alert, and fully oriented, in no acute distress. HEAD: Normal with no signs of trauma. EYES: Pupils equal, round and reactive to light, extraocular movements intact, sclera anicteric, conjunctiva clear. No lid lag. EARS, NOSE, THROAT: Ears normal, nares patent, oropharynx clear without exudates. Moist mucous membranes. NECK: Normal range of motion, supple without lymphadenopathy, JVD, or masses. LUNGS: Breath sounds equal, clear to auscultation bilaterally. No wheezes, and no crackles. No accessory muscle use. HEART: Regular rate and rhythm, normal S1 and S2 without murmur, rub or gallop. ABDOMEN: Soft, nontender, not distended, normoactive bowel sounds, no guarding, no rebound, no masses. No hepatomegaly or splenomegaly. MUSCULOSKELETAL: Normal range of motion at all joints. No bony deformities or tenderness. No CVA tenderness. Muscle strength: RUE 4-/5, LUE 4/5, RLE 3/5, LLE 4/5 UPPER EXTREMITIES: 2+ pulses, warm, well-perfused. No cyanosis. No clubbing. No peripheral edema. LOWER EXTREMITIES: 2+ pulses, warm, well-perfused. No calf tenderness. No peripheral edema. NEUROLOGICAL: Cranial nerves II-XII intact. Normal speech. Normal gait. PSYCHIATRIC: Cooperative. Good eye contact. Appropriate mood and affect. SKIN: Warm, dry, normal turgor, no rashes or lesions noted, normal capillary refill. LEFT DISTAL LOWER EXTREMITY: "v" shaped full thickness laceration, slightly erythematous, scant drainage. Laboratory Results - last 24 hr CBC WBC 10.6 K/mm3 (4.0-10.8) 06/09/17 07:58 RBC 3.93 M/mm3 (3.60-5.2) 06/09/17 07:58 Hgb 11.4 GM/dl (10.7-15.3) D 06/09/17 07:58 Hct 34.4 % (32.4-45.2) D 06/09/17 07:58 MCV 87.6 fl (80-96) 06/09/17 07:58 MCH 29.0 pg (25.7-33.7) 06/09/17 07:58 MCHC 33.1 g/dl (32.0-36.0) 06/09/17 07:58 RDW 28.3 % (11.6-15.6) H 06/09/17 07:58 Plt Count 269 K/MM3 (134-434) 06/09/17 07:58 MPV 8.9 fl (7.5-11.1) 06/09/17 07:58 Neutrophils % 60.7 % (42.8-82.8) 06/09/17 07:58 Neutrophils % (Manual) 87.0 % (42.8-82.8) H 06/08/17 12:02 Band Neutrophils % 2.0 % (0-10) 06/08/17 12:02 Lymphocytes % 26.7 % (8-40) 06/09/17 07:58 Lymphocytes % (Manual) 10.0 % (8-40) 06/08/17 12:02 Monocytes % 9.9 % (3.8-10.2) 06/09/17 07:58 Monocytes % (Manual) 1 % (3.8-10.2) L 06/08/17 12:02 Eosinophils % 2.4 % (0-4.5) 06/09/17 07:58 Basophils % 0.3 % (0-2.0) 06/09/17 07:58 Platelet Estimate Adequate 06/08/17 12:02 Anisocytosis 3+ 06/08/17 12:02 Macrocytosis 1+ 06/08/17 12:02 CMP Sodium 134 mmol/L (136-145) L 06/09/17 07:58 Potassium 4.0 mmol/L (3.5-5.1) 06/09/17 07:58 Chloride 104 mmol/L (98-107) 06/09/17 07:58 Carbon Dioxide 23 mmol/L (22-28) 06/09/17 07:58 Anion Gap 7 (8-16) L 06/09/17 07:58 BUN 18 mg/dl (7-18) D 06/09/17 07:58 Creatinine 0.7 mg/dl (0.6-1.3) 06/09/17 07:58 Creat Clearance w eGFR > 60 (>60) 06/09/17 07:58 Random Glucose 118 mg/dl (74-106) H D 06/08/17 17:20 Calcium 8.3 mg/dl (8.4-10.2) L 06/09/17 07:58 Phosphorus 3.9 mg/dl (2.5-4.6) 06/09/17 07:58 Magnesium 1.7 mg/dL (1.8-2.4) L 06/09/17 07:58 Total Bilirubin 0.4 mg/dl (0.2-1.0) D 06/09/17 07:58 AST 18 U/L (10-42) D 06/09/17 07:58 ALT 27 U/L (10-40) D 06/09/17 07:58 Alkaline Phosphatase 75 U/L (32-92) 06/09/17 07:58 Creatine Kinase 29 IU/L (26-192) 06/08/17 12:02 Troponin I 0.01 ng/ml (0.00-0.05) 06/08/17 12:02 Total Protein 5.1 g/dl (6.4-8.3) L 06/09/17 07:58 Albumin 2.7 g/dl (3.5-5.0) L 06/09/17 07:58 Cholesterol 150 mg/dl 06/08/17 12:02 Total LDL Cholesterol 99 mg/dL (5-100) 06/08/17 12:02 HDL Cholesterol 34 mg/dl (29-89) D 06/08/17 12:02 Active Medications Generic Name Dose Route Start Last Admin Trade Name Freq PRN Reason Stop Dose Admin Acetaminophen 650 mg 06/08/17 16:51 06/09/17 01:21 Tylenol - PO 650 mg Q6H PRN Administration MODERATE PAIN Albuterol Sulfate 1 amp 06/09/17 00:44 Ventolin 0.083% Nebulizer Soln - NEB Q4H PRN SHORT OF BREATH/WHEEZING Budesonide/Formoterol Fumarate 2 puff 06/08/17 22:15 06/08/17 22:58 Symbicort 160/4.5mcg - IH 2 inh BID MUKUND Administration Cholecalciferol 2,000 unit 06/09/17 10:00 Vitamin D3 - PO DAILY [facility] Enalapril Maleate 5 mg 06/09/17 10:00 Vasotec - PO DAILY MUKUND Famotidine 20 mg 06/08/17 22:15 06/08/17 22:58 Pepcid - PO 20 mg BID MUKUND Administration Gabapentin 100 mg 06/08/17 22:15 06/09/17 06:08 Neurontin - PO 100 mg TID MUKUND Administration Heparin Sodium (Porcine) 5,000 unit 06/08/17 22:00 06/09/17 06:07 Heparin - SQ 5,000 unit TID MUKUND Administration Sodium Chloride 1,000 mls @ 100 mls/hr 06/08/17 22:45 06/08/17 23:17 Normal Saline - IV 100 mls/hr ASDIR MUKUND Administration Magnesium Hydroxide 30 ml 06/09/17 00:46 Milk Of Magnesia - PO DAILY PRN CONSTIPATION Metoprolol Succinate 25 mg 06/09/17 10:00 Toprol Xl - PO DAILY [facility] Nicotine 14 mg 06/09/17 10:00 Nicoderm Patch - TD DAILY [facility] Oxycodone HCl 5 mg 06/08/17 22:04 06/09/17 01:20 Roxicodone - PO 5 mg Q6H PRN Administration PAIN LEVEL 6-10 Polyethylene Glycol 17 gm 06/09/17 10:00 Miralax (For Daily Use) - PO DAILY [facility] Spironolactone 25 mg 06/09/17 10:00 Aldactone - PO DAILY [facility] Tiotropium [place] 1 puff 06/09/17 10:00 Spiriva - IH DAILY [facility] ECG sinus rhythm with premature supraventricular complexes vs wandering atrial pacemaker septal infact age undetermined poor baseline, interpretation may be affected No obvious acute t wave changes Radiology Reports MRI Brain IMPRESSION: No discrete infarct is identified. A 3 mm chronic microbleed is seen within the left internal capsule posteriorly. Mild periventricular chronic microvascular ischemic changes are seen. Complete versus near complete occlusion of the left internal carotid artery as discussed above. This finding was also described on an MRA exam of 02/15/2017. Within the partially imaged upper cervical spine at the C3-C4 level central canal stenosis is noted which is probably at least moderate to marked. If clinically indicated additional evaluation utilizing a dedicated cervical spine MRI study may be performed. Reported By: Param Orozco MD 06/08/17 1705 CXR IMPRESSION: No acute disease. Reported By: Randal Nesbitt MD 06/08/[address] head IMPRESSION: Moderate atrophy and mild chronic microvascular ischemic changes. No gross acute intracranial pathology is identified. Correlate clinically to determine further evaluation and follow-up Reported By: Jude Talbot MD 06/08/17 1320 ASSESSMENT/PLAN: 1) NEURO Right sided weakness - MRI and CT neg for acute CVA, MRI with mod to marked spinal stenosis with canal narrowing, MRI c-spine done 12/2016 moderate c5-c6 central canal stenosis - pending physical therapy evaluation - appreciate neurology input 2) cardiovascular paroxysmal afib - nsr at present, as per patient has not tolerated AC in the past, also has history of daily alcohol use, reports last drank alcohol 06/02/17 diastolic congestive heart failure - pt appears euvolemic on exam - strict i/o and daily weight hypertension - continue enalparil and toprol, b/p at goal carotid stenosis - was evaluated at [facility] as per patient, deferred any surgical intervention at this time PVD - left lower extremity wound occured 06/03/17 as per patient, tdap given in ED, slight erythema noted, start ancef - appreciate plastic surgeon input 3) pulm copd - finished prednisone taper on 06/07/17, no acute excerbation a this time - continue spiriva, symbicort with albuterol prn f/e/n hyponatremia - secondary to hypovolemia, serum sodium uptrending regular diet replete magnesium DVT PPX - heparin 5000u TID Dispo: Pt currently requires further observation for management of her emergent condition. Visit type - Emergency Visit Emergency Visit: Yes ED Registration Date: 06/09/17 Care time: The patient presented to the Emergency Department on the above date and was hospitalized for further evaluation of their emergent condition. - New Patient This patient is new to me today: Yes Date on this admission: 06/09/17 - Critical Care Critical Care patient: No - Discharge Referral Referred to [facility] Med [facility] No
[2017-06-09 08:52] LABS: ALBUMIN 2.7 g/dl (3.5-5.0); ALK PHOS 75 U/L (32-92); ANION GAP 7 (8-16); BILIRUBIN,TOTAL 0.4 mg/dl (0.2-1.0); BLOOD UREA NITROGEN 18 mg/dl (7-18); CALCIUM 8.3 mg/dl (8.4-10.2); CHLORIDE 104 mmol/L (98-107); CO2 23 mmol/L (22-28); CREATININE 0.7 mg/dl (0.6-1.3); MAGNESIUM 1.7 mg/dL (1.8-2.4); PHOSPHOROUS 3.9 mg/dl (2.5-4.6); SGOT/AST 18 U/L (10-42); SGPT/ALT 27 U/L (10-40); SODIUM 134 mmol/L (136-145); TOT PROT 5.1 g/dl (6.4-8.3)
[2017-06-09 09:00] LABS: ADD RBC MORPHOLOGY YES
[2017-06-09] MEDS ORDERED: PT OWN MED DRAWER 7, Y5N ONE (09:17)
[2017-06-09] MEDS: NICOTINE 14 MG/24 HOURS TOPICAL PATCH TD SCH (09:31)
[2017-06-09] MEDS: ASPIRIN 81 MG CHEWABLE TABLETS PO SCH (09:31)
[2017-06-09] MEDS: TIOTROPIUM BROMIDE 18 MCG/INH (DEVICE W/ 5 CAPSULES) IH SCH (09:31)
[2017-06-09] MEDS: CHOLECALCIFEROL (VITAMIN D3) 1,000 UNIT TABLET (FP) PO SCH (09:32)
[2017-06-09] MEDS: ENALAPRIL MALEATE 5 MG TABLET (FP) PO SCH (09:32)
[2017-06-09] MEDS: METOPROLOL SUCCINATE 25 MG TAB.SR.24H (FP) PO SCH (09:32)
[2017-06-09] MEDS: BUDESONIDE/FORMETEROL FUMARATE 160/4.5 mcg INHALER IH SCH ×2 (09:33→22:05)
[2017-06-09] MEDS: POLYETHYLENE GLYCOL 3350 119 GM BTL PO SCH (09:33)
[2017-06-09] MEDS: SPIRONOLACTONE 25 MG TABLET (FP) PO SCH (09:33)
[2017-06-09] MEDS: FAMOTIDINE 20 MG TABLET PO SCH ×2 (09:33→22:05)
[2017-06-09] MEDS ORDERED: MAGNESIUM SULF 50% (8.12 MEQ/2 ML-1 GM VIAL) ONE ×2 (09:35→09:55)
[2017-06-09] MEDS: MAGNESIUM 1GM/D5W - 1 GM/100 ML IVPB IVPB SCH ×2 (09:37→10:30)
[2017-06-09] MEDS: CEFAZOLIN 1 GM/D5W 1 GM/50 ML BAG IVPB SCH ×2 (10:00→17:50)
[2017-06-09] MEDS: SODIUM CHLORIDE 1,000 ML IV SCH (10:30)
[2017-06-09 12:22] LABS: CHOLESTEROL 125 mg/dL (50-200); GLUCOSE,RANDOM 91 mg/dL (74-106)
[2017-06-09 12:25] LABS: HDL CHOLESTEROL 28 mg/dL (40-60); LDL CHOLESTEROL (ONLY SJRH) 78 mg/dL (5-100); TRIGLYCERIDES 96 mg/dL (35-160)
[2017-06-09 13:31] LABS: ANISOCYTOSIS 2+
[2017-06-09 13:32] LABS: PLATELET ESTIMATE ADEQUATE; TARGET CELLS 1+
--- NOTE | 2017-06-09 15:24 | CONSULT ---
Consult - text type - Consultation Consultation Note: Neurology History of Present Illness 86 yo F hx of COPD, CHF, CAD, HTN, CAD, PVD, carotid stenosis, diverticulitis, spinal stenosis who presents to the ED with progressive weakness on her RLE and RUE for 2-3 weeks. Pt was recently admitted for similar symptoms, although now states her right upper extremity is weaker and she is only able to lift it 4 inches. During her admission, it was recommended that she have rehabilitation at a retirement facility, however the patient was not amenable to this at the time. She requested 24-hour VNS services which have since been in place, but reports that she has not satisfied with those services and is still unable to get out of bed or ambulate. CT head is negative for acute infarct. She completed MRI brain which was reviewed and did not show any structural abnormalities, no new infarcts noted. There was mention of spinal stenosis in the cervical level, C3/C4. I also reviewed CT of the lumbar spine which and demonstrated compression at L3 as well as degenerative disease L4-S1 and grade 1 anterolisthesis L5 over S1. it seems that her ongoing gait instabilty is likely due to underlying spinal stenosis. She would likely benefit from at least short term rehabilitation and her continued inability to ambulate poses a risk to her. She is now agreeable to this. She would like Jenni, [employer] aware. Past History - Past Medical History Allergies/Adverse Reactions: Allergies Allergy/AdvReac Type Severity Reaction Status Date / Time Penicillins Allergy Itching Verified 06/08/17 11:01 CATS Allergy Intermediate cough and Uncoded 05/31/17 18:26 wheezing. Home Medications: Ambulatory Orders Albuterol Sulfate [Proair Hfa] 8.5 gm IH Q4HWA 06/08/17 Budesonide/Formeterol Fumarate [SYMBICORT 160/4.5mcg -] 2 inh PO BID 06/08/17 Cholecalciferol (Vitamin D3) [Vitamin D] 2,000 unit PO DAILY 06/08/17 Enalapril Maleate 5 mg PO DAILY 06/08/17 Famotidine 20 mg PO BID 06/08/17 Gabapentin [Neurontin -] 100 mg PO Q8H 06/08/17 Levofloxacin [Levaquin -] 250 mg PO DAILY 06/08/17 Metoprolol Succinate 25 mg PO DAILY 06/08/17 Nicotine Patch [Nicoderm Patch -] 1 patch TD DAILY 06/08/17 Oxycodone HCl 5 mg PO QID 06/08/17 Polyethylene Glycol 3350 [Miralax (For Daily Use) -] 17 gm PO DAILY 06/08/17 Prednisone See Taper PO DAILY 06/08/17 Spironolactone 25 mg PO DAILY 06/08/17 Tiotropium [place] [Spiriva] 1 inh PO DAILY 06/08/17 Anemia: Yes Asthma: No Cancer: No Cardiac Disorders: Yes (CAD) CVA: No COPD: Yes CHF: No Dementia: No Diabetes: No GI Disorders: Yes (diverticulitis) Disorders: No HTN: Yes Hypercholesterolemia: No Liver Disease: No Seizures: No Thyroid Disease: No - Surgical History Abdominal Surgery: Yes (DIVERTICULITIS) Appendectomy: No Cardiac Surgery: No Cholecystectomy: No GI Surgery: Yes (PARITAL COLECTOMY) Lung Surgery: No Neurologic Surgery: No Orthopedic Surgery: Yes - Suicide/Smoking/Psychosocial Hx Smoking History: Current every day smoker Have you smoked in the past 12 months: Yes Number of Cigarettes Smoked Daily: 10 'Breaking Loose' booklet given: 05/31/17 Hx Alcohol Use: Yes Drug/Substance Use Hx: No Substance Use Type: None Hx Substance Use Treatment: No Review of Systems GENERAL/CONSTITUTIONAL: No fever or chills. No weakness. HEAD, EYES, EARS, NOSE AND THROAT: No change in vision. No ear pain or discharge. No sore throat. GASTROINTESTINAL: No nausea, vomiting, diarrhea or constipation. GENITOURINARY: No dysuria, frequency, or change in urination. CARDIOVASCULAR: No chest pain or shortness of breath. RESPIRATORY: No cough, wheezing, or hemoptysis. MUSCULOSKELETAL: No joint or muscle swelling or pain. No neck or back pain. SKIN: No rash NEUROLOGIC: No headache, vertigo, loss of consciousness, +weakness RUE and RLE ENDOCRINE: No increased thirst. No abnormal weight change. HEMATOLOGIC/LYMPHATIC: No anemia, easy bleeding, or history of blood clots. ALLERGIC/IMMUNOLOGIC: No hives or skin allergy. *Physical Exam Vital Signs Period Temp Pulse Resp BP Sys/[place] Pulse Ox Last 24 Hr 97.8 F-98.0 F 11-104 18-20 96-150/46-79 100-100 GENERAL: Awake, alert, and fully oriented, in no acute distress. HEAD: No signs of trauma EYES: PERRLA, EOMI, sclera anicteric, conjunctiva clear ENT: Auricles normal inspection, hearing grossly normal, nares patent, oropharynx clear without exudates. Moist mucosa NECK: Normal ROM, supple, no lymphadenopathy, JVD, or masses LUNGS: Breath sounds equal, clear to auscultation bilaterally. No wheezes, and no crackles HEART: Regular rate and rhythm, normal S1 and S2, no murmurs, rubs or gallops ABDOMEN: Soft, nontender, normoactive bowel sounds. No guarding, no rebound. No masses EXTREMITIES: Normal range of motion, no edema. No clubbing or cyanosis. No cords, erythema, or tenderness NEUROLOGICAL: Normal speech, cranial nerves intact, +pronator drift on the R, 3 /5 strength in RUE and RLE, normal sensation to light touch in all 4 extremities , normal cerebellar exam, normal reflexes and tone, gait deferred SKIN: L proximal billy with hemostatic 9cm curvilinear laceration with no drainage. CBCD WBC 10.6 K/mm3 (4.0-10.8) 06/09/17 07:58 RBC 3.93 M/mm3 (3.60-5.2) 06/09/17 07:58 Hgb 11.4 GM/dl (10.7-15.3) D 06/09/17 07:58 Hct 34.4 % (32.4-45.2) D 06/09/17 07:58 MCV 87.6 fl (80-96) 06/09/17 07:58 MCHC 33.1 g/dl (32.0-36.0) 06/09/17 07:58 RDW 28.3 % (11.6-15.6) H 06/09/17 07:58 Plt Count 269 K/MM3 (134-434) 06/09/17 07:58 MPV 8.9 fl (7.5-11.1) 06/09/17 07:58 CMP Sodium 134 mmol/L (136-145) L 06/09/17 07:58 Potassium 4.0 mmol/L (3.5-5.1) 06/09/17 07:58 Chloride 104 mmol/L (98-107) 06/09/17 07:58 Carbon Dioxide 23 mmol/L (22-28) 06/09/17 07:58 Anion Gap 7 (8-16) L 06/09/17 07:58 BUN 18 mg/dl (7-18) D 06/09/17 07:58 Creatinine 0.7 mg/dl (0.6-1.3) 06/09/17 07:58 Creat Clearance w eGFR > 60 (>60) 06/09/17 07:58 Calcium 8.3 mg/dl (8.4-10.2) L 06/09/17 07:58 Total Bilirubin 0.4 mg/dl (0.2-1.0) D 06/09/17 07:58 AST 18 U/L (10-42) D 06/09/17 07:58 ALT 27 U/L (10-40) D 06/09/17 07:58 Alkaline Phosphatase 75 U/L (32-92) 06/09/17 07:58 Total Protein 5.1 g/dl (6.4-8.3) L 06/09/17 07:58 Albumin 2.7 g/dl (3.5-5.0) L 06/09/17 07:[address] L spine reviewed MRI brain reviewed Medical Decision Making 86 yo F hx of COPD, CHF, CAD, HTN, CAD, PVD, carotid stenosis, diverticulitis, spinal stenosis who presents to the ED with progressive weakness on her RLE and RUE for 2-3 weeks. During her admission, it was recommended that she have rehabilitation at a retirement facility, however the patient was not amenable to this at the time. She requested 24-hour VNS services which have since been in place, but reports that she has not satisfied with those services and is still unable to get out of bed or ambulate. CT head is negative for acute infarct. She completed MRI brain which was reviewed and did not show any structural abnormalities, no new infarcts noted. Spinal stenosis in the cervical level, C3/C4. CT of the lumbar spine demonstrated compression at L3 as well as degenerative disease L4-S1 and grade 1 anterolisthesis L5 over S1. Ongoing gait instabilty is likely due to underlying spinal stenosis. Consider neurosurgery consult if patient amenable Most likely will desire conservative care She would likely benefit from at least short term rehabilitation and her continued inability to ambulate poses a risk to her, she is aware and is amenable to placement now Assistive device recommended Fall precautions
--- NOTE | 2017-06-09 17:41 | EKG ---
Test Reason : Blood Pressure : / mmHG Vent. Rate : 090 BPM Atrial Rate : 090 BPM P-R Int : 000 ms QRS Dur : 086 ms QT Int : 358 ms P-R-T Axes : 000 019 019 degrees QTc Int : 437 ms SINUS RHYTHM WITH PREMATURE SUPRAVENTRICULAR COMPLEXES SEPTAL INFARCT (CITED ON OR BEFORE 07-APR-2017) WHEN COMPARED WITH ECG OF 31-MAY-2017 20:22, CO INTERVAL HAS DECREASED T WAVE INVERSION NO LONGER EVIDENT IN ANTEROLATERAL LEADS Confirmed by MD HECTOR, GEOVANNY ([id number]) on 06/09/2017 5:41:32 PM Referred By: DORYS GALARZA Confirmed By:GEOVANNY YOUNG MD
--- NOTE | 2017-06-09 19:47 | PN ---
Progress Note (short form) - Note Progress Note: Patient seen. Full consult dictated separately. Week old laceration on leg with skin properly placed but not closed. No infection. Recommend continued bacitracin and xeroform dressing changes until it heals. This can continue while in rehab.
--- NOTE | 2017-06-09 19:55 | CONSULT ---
Consult - text type - Consultation Consultation Note: HISTORY OF PRESENT ILLNESS: This is an 86 year old female with a past medical history significant for spinal stenosis, CAD, CHF, HTN who lacerated her left leg last Tuesday. It was treated by a physician friend who placed the skin properly and began dressing treatments with bacitracin and xeroform. The was then admitted for several additional problems. PAST MEDICAL HISTORY: COPD, CHF, HTN, PVD, aFIB, Carotid stenosis, spinal stenosis, diverticulitis PAST SURGICAL HISTORY: R THR 2011 L TKR 2001 colon resection secondary to diverticulitis 1993 hysterectomy R ankle ORIF Social History: Smokin.5 ppd x 40y Alcohol: 5-6 drinks daily, last drink weeks ago Drugs: pt denies Family History: mother age 84, alzheimers, [place] father age 60, ETOH no siblings no biological children Allergies Penicillins Allergy (Verified 06/08/17 11:01) Itching RASH CATS Allergy (Intermediate, Uncoded 05/31/17 18:26) cough and wheezing. HOME MEDICATIONS: 3 Medication Instructions Recorded Albuterol Sulfate [Proair Hfa] 8.5 gm IH Q4HWA 06/08/17 Budesonide/Formeterol Fumarate 2 inh PO BID 06/08/17 [SYMBICORT 160/4.5mcg -] Cholecalciferol (Vitamin D3) 2,000 unit PO DAILY 06/08/17 [Vitamin D] Enalapril Maleate 5 mg PO DAILY 06/08/17 Famotidine 20 mg PO BID 06/08/17 Gabapentin [Neurontin -] 100 mg PO Q8H 06/08/17 Levofloxacin [Levaquin -] 250 mg PO DAILY 06/08/17 Metoprolol Succinate 25 mg PO DAILY 06/08/17 Nicotine Patch [Nicoderm Patch -] 1 patch TD DAILY 06/08/17 Oxycodone HCl 5 mg PO QID 06/08/17 Polyethylene Glycol 3350 [Miralax 17 gm PO DAILY 06/08/17 (For Daily Use) -] Prednisone See Taper PO DAILY 06/08/17 Spironolactone 25 mg PO DAILY 06/08/17 Tiotropium [place] [Spiriva] 1 inh PO DAILY 06/08/17 REVIEW OF SYSTEMS CONSTITUTIONAL: Absent: fever, chills, diaphoresis, generalized weakness, malaise, loss of appetite, weight change HEENT: Absent: rhinorrhea, nasal congestion, throat pain, throat swelling, difficulty swallowing, mouth swelling, ear pain, eye pain, visual changes CARDIOVASCULAR: Absent: chest pain, syncope, palpitations, irregular heart rate, lightheadedness , peripheral edema RESPIRATORY: Absent: cough, shortness of breath, dyspnea with exertion, orthopnea, wheezing, stridor, hemoptysis GASTROINTESTINAL: Absent: abdominal pain, abdominal distension, nausea, vomiting, diarrhea, constipation, melena, hematochezia GENITOURINARY: Absent: dysuria, frequency, urgency, hesitancy, hematuria, flank pain, genital pain MUSCULOSKELETAL: Absent: myalgia, arthralgia, joint swelling, back pain, neck pain SKIN: Absent: rash, itching, pallor HEMATOLOGIC/IMMUNOLOGIC: Absent: easy bleeding, easy bruising, lymphadenopathy, frequent infections ENDOCRINE: Absent: unexplained weight gain, unexplained weight loss, heat intolerance, cold intolerance NEUROLOGIC: Present: right sided weakness Absent: headache, focal weakness or paresthesias, dizziness, unsteady gait, seizure, mental status changes, bladder or bowel incontinence PSYCHIATRIC: Absent: anxiety, depression, suicidal or homicidal ideation, hallucinations. PHYSICAL EXAMINATION Vital Signs - 24 hr 3 06/08/17 06/08/17 06/08/17 11:00 13:00 13:30 Temperature 97.8 F Pulse Rate 69 Pulse Rate [ 87 89 Radial] Respiratory 18 18 20 Rate Blood Pressure 135/62 Blood Pressure 93/79 101/55 [Right Arm] O2 Sat by Pulse 99 97 Oximetry (%) 3 06/08/17 06/08/17 06/08/17 06/08/17 14:00 15:00 16:07 20:46 Temperature 98.0 F 97.8 F Pulse Rate 11 L 104 H Pulse Rate [ 82 96 H Radial] Respiratory 20 20 20 20 Rate Blood Pressure 117/70 107/46 Blood Pressure 89/46 96/64 [Right Arm] O2 Sat by Pulse 100 100 100 Oximetry (%) GENERAL: Awake, alert, and fully oriented, in no acute distress. HEAD: Normal with no signs of trauma. EYES: Pupils equal, round and reactive to light, extraocular movements intact, sclera anicteric, conjunctiva clear. No lid lag. EARS, NOSE, THROAT: Ears normal, nares patent, oropharynx clear without exudates. Moist mucous membranes. NECK: Normal range of motion, supple without lymphadenopathy, JVD, or masses. LUNGS: Breath sounds equal, clear to auscultation bilaterally. No wheezes, and no crackles. No accessory muscle use. HEART: Regular rate and rhythm, normal S1 and S2 without murmur, rub or gallop. ABDOMEN: Soft, nontender, not distended, normoactive bowel sounds, no guarding, no rebound, no masses. No hepatomegaly or splenomegaly. MUSCULOSKELETAL: Normal range of motion at all joints. No bony deformities or tenderness. No CVA tenderness. Muscle strength: RUE 4-/5, LUE 4/5, RLE 3/5, LLE 4/5 UPPER EXTREMITIES: 2+ pulses, warm, well-perfused. No cyanosis. No clubbing. No peripheral edema. LOWER EXTREMITIES: 2+ pulses, warm, well-perfused. No calf tenderness. No peripheral edema. Superiorly based skin flap laceration in place without evidence of infection or skin loss NEUROLOGICAL: Cranial nerves II-XII intact. Normal speech. Normal gait. PSYCHIATRIC: Cooperative. Good eye contact. Appropriate mood and affect. SKIN: Warm, dry, normal turgor, no rashes or lesions noted, normal capillary refill. left billy with large 3 corner deep laceration, 6 days old, no significant erythema, no significant discharge. Laboratory Results - last 24 hr 3 06/08/17 06/08/17 06/08/17 12:02 12:02 12:02 WBC 17.5 H D RBC 4.60 Hgb 13.4 D Hct 40.6 D MCV 88.3 MCH 29.2 MCHC 33.1 RDW 28.7 H Plt Count 328 MPV 8.2 Neutrophils % No Result Required. Neutrophils % (Manual) 87.0 H Band Neutrophils % 2.0 Lymphocytes % No Result Required. Lymphocytes % (Manual) 10.0 Monocytes % (Manual) 1 L Platelet Estimate Adequate Anisocytosis 3+ Macrocytosis 1+ PT with INR 11.6 INR 1.04 Sodium 130 L Potassium 5.4 H D Chloride 97 L Carbon Dioxide 21 L Anion Gap 12 BUN 23 H D Creatinine 0.8 D Creat Clearance w eGFR > 60 Random Glucose 152 H D Calcium 8.9 Phosphorus Total Bilirubin 1.9 H D AST 37 ALT 37 D Alkaline Phosphatase 83 Creatine Kinase Troponin I Total Protein 6.2 L Albumin 3.2 L Cholesterol Total LDL Cholesterol HDL Cholesterol Urine Color Urine Appearance Urine pH Ur Specific [place] Urine Protein Urine Glucose (UA) Urine Ketones Urine Blood Urine Nitrite Urine Bilirubin Urine Urobilinogen Blood Type Antibody Screen 3 06/08/17 06/08/17 06/08/17 12:02 12:02 12:06 WBC RBC Hgb Hct MCV MCH MCHC RDW Plt Count MPV Neutrophils % Neutrophils % (Manual) Band Neutrophils % Lymphocytes % Lymphocytes % (Manual) Monocytes % (Manual) Platelet Estimate Anisocytosis Macrocytosis PT with INR INR Sodium Potassium Chloride Carbon Dioxide Anion Gap BUN Creatinine Creat Clearance w eGFR Random Glucose Calcium Phosphorus Total Bilirubin AST ALT Alkaline Phosphatase Creatine Kinase 29 Troponin I 0.01 Total Protein Albumin Cholesterol 150 Total LDL Cholesterol 99 HDL Cholesterol 34 D Urine Color yellow Urine Appearance Clear Urine pH 7.5 Ur Specific [place] 1.015 Urine Protein Negative Urine Glucose (UA) Negative Urine Ketones Negative Urine Blood Negative Urine Nitrite Negative Urine Bilirubin Negative Urine Urobilinogen 0.2 Blood Type Cancelled Antibody Screen Cancelled 3 06/08/17 06/08/17 17:20 17:20 WBC 14.2 H RBC 4.66 Hgb 13.5 Hct 41.1 MCV 88.2 MCH 28.9 MCHC 32.8 RDW 28.7 H Plt Count 310 MPV 8.4 Neutrophils % No Result Required. Neutrophils % (Manual) Band Neutrophils % Lymphocytes % No Result Required. Lymphocytes % (Manual) Monocytes % (Manual) Platelet Estimate Anisocytosis Macrocytosis PT with INR INR Sodium 132 L Potassium 4.5 Chloride 99 Carbon Dioxide 21 L Anion Gap 12 BUN 23 H Creatinine 0.8 Creat Clearance w eGFR > 60 Random Glucose 118 H D Calcium 9.1 Phosphorus 3.6 Total Bilirubin 0.7 D AST 27 D ALT 34 Alkaline Phosphatase 90 Creatine Kinase Troponin I Total Protein 6.2 L Albumin 3.3 L Cholesterol Total LDL Cholesterol HDL Cholesterol Urine Color Urine Appearance Urine pH Ur Specific [place] Urine Protein Urine Glucose (UA) Urine Ketones Urine Blood Urine Nitrite Urine Bilirubin Urine Urobilinogen Blood Type Antibody Screen ECG sinus rhythm with premature supraventricular complexes vs wandering atrial pacemaker septal infact age undetermined poor baseline, interpretation may be affected No obvious acute t wave changes Radiology Reports MRI Brain IMPRESSION: No discrete infarct is identified. A 3 mm chronic microbleed is seen within the left internal capsule posteriorly. Mild periventricular chronic microvascular ischemic changes are seen. Complete versus near complete occlusion of the left internal carotid artery as discussed above. This finding was also described on an MRA exam of 02/15/2017. Within the partially imaged upper cervical spine at the C3-C4 level central canal stenosis is noted which is probably at least moderate to marked. If clinically indicated additional evaluation utilizing a dedicated cervical spine MRI study may be performed. Reported By: Param Orozco MD 06/08/17 1705 CXR IMPRESSION: No acute disease. Reported By: Randal Nesbitt MD 06/08/[address] head IMPRESSION: Moderate atrophy and mild chronic microvascular ischemic changes. No gross acute intracranial pathology is identified. Correlate clinically to determine further evaluation and follow-up Reported By: Jude Talbot MD 06/08/17 1320 ASSESSMENT/PLAN: 86yF with PMH COPD, CHF, HTN, PVD, aFIB, Carotid stenosis, spinal stenosis, diverticulitis presented to the ED with right sided weakness and inability to walk. She additionally has a superiorly based skin flap laceration on the the left leg. I have recommended continued dressing changes with bacitracin, xeroform, kacy, and chary wrap. Continuous left leg elevation and wound care until complete healing. I have spent 30 minutes with the patient at [facility] and done a dressing change I have discussed surgical options and my recommendations This represents a moderate degree of medical complexity decision making
[2017-06-10] MEDS: CEFAZOLIN 1 GM/D5W 1 GM/50 ML BAG IVPB SCH ×3 (01:35→18:03)
[2017-06-10] MEDS: oxyCODONE HCL 5 MG TABLET PO PRN ×2 (03:55→21:39)
[2017-06-10] MEDS: HEPARIN NA (PORCINE) 5,000 UNITS/ML 1ML VIAL SQ SCH ×3 (07:07→21:39)
[2017-06-10] MEDS: GABAPENTIN 100 MG CAPSULE (FP) PO SCH ×3 (07:07→21:39)
[2017-06-10 08:47] LABS: HEMATOCRIT 33.1 % (32.4-45.2); HEMOGLOBIN 11.5 GM/dl (10.7-15.3); MCH 30.6 pg (25.7-33.7); MCHC 34.8 g/dl (32.0-36.0); MEAN CELL VOLUME 87.8 fl (80-96); MEAN PLT VOLUME 9.3 fl (7.5-11.1); PLATELET COUNT 249 K/MM3 (134-434); RBC 3.77 M/mm3 (3.60-5.2); RDW 28.4 % (11.6-15.6); WHITE BLOOD COUNT 11.6 K/mm3 (4.0-10.8)
[2017-06-10 08:53] LABS: ANION GAP 7 (8-16); BLOOD UREA NITROGEN 13 mg/dl (7-18); CALCIUM 8.2 mg/dl (8.4-10.2); CHLORIDE 101 mmol/L (98-107); CO2 23 mmol/L (22-28); CREATININE 0.7 mg/dl (0.6-1.3); GLUCOSE,RANDOM 98 mg/dl (74-106); PHOSPHOROUS 3.1 mg/dl (2.5-4.6); POTASSIUM 4.8 mmol/L (3.5-5.1); SODIUM 131 mmol/L (136-145)
[2017-06-10] MEDS: NICOTINE 14 MG/24 HOURS TOPICAL PATCH TD SCH (09:46)
[2017-06-10] MEDS: ASPIRIN 81 MG CHEWABLE TABLETS PO SCH (09:46)
[2017-06-10] MEDS: FAMOTIDINE 20 MG TABLET PO SCH ×2 (09:46→21:39)
[2017-06-10] MEDS: ENALAPRIL MALEATE 5 MG TABLET (FP) PO SCH (09:46)
[2017-06-10] MEDS: SPIRONOLACTONE 25 MG TABLET (FP) PO SCH (09:46)
[2017-06-10] MEDS: METOPROLOL SUCCINATE 25 MG TAB.SR.24H (FP) PO SCH (09:46)
[2017-06-10] MEDS: CHOLECALCIFEROL (VITAMIN D3) 1,000 UNIT TABLET (FP) PO SCH (09:46)
[2017-06-10] MEDS: POLYETHYLENE GLYCOL 3350 119 GM BTL PO SCH (09:46)
[2017-06-10] MEDS: SODIUM CHLORIDE 1,000 ML IV SCH (09:47)
[2017-06-10] MEDS: TIOTROPIUM BROMIDE 18 MCG/INH (DEVICE W/ 5 CAPSULES) IH SCH (09:47)
[2017-06-10] MEDS: BUDESONIDE/FORMETEROL FUMARATE 160/4.5 mcg INHALER IH SCH ×2 (09:47→21:40)
[2017-06-10] MEDS ORDERED: PT OWN MED DRAWER 7, Y5N ONE (09:58)
--- NOTE | 2017-06-10 14:08 | DS ---
Physical Exam: SUBJECTIVE: Patient seen and examined, sitting in bedside, denies any chest pain or shortness of breath, awaiting transfer to rehab. OBJECTIVE: Patient is a 86 year old female with a past medical history significant for spinal stenosis, CAD, CHF, HTN, resented with weakness to her Right side for 2-3 weeks, which has worsened in the last week since she was discharged on 06/02/17. ER course was notable for: (1) MRI brain with no acute brain findings (2) CT head with no acute findings Vital Signs Period Temp Pulse Resp BP Sys/Ornelas Pulse Ox Last 24 Hr 97.8 F-98.8 F 54-104 19-20 96-164/44-69 96-98 PHYSICAL EXAM GENERAL: Awake, alert, and fully oriented, in no acute distress. HEAD: Normal with no signs of trauma. EYES: Pupils equal, round and reactive to light, extraocular movements intact, sclera anicteric, conjunctiva clear. No lid lag. EARS, NOSE, THROAT: Ears normal, nares patent, oropharynx clear without exudates. Moist mucous membranes. NECK: Normal range of motion, supple without lymphadenopathy, JVD, or masses. LUNGS: Breath sounds equal, clear to auscultation bilaterally. No wheezes, and no crackles. No accessory muscle use. HEART: Regular rate and rhythm, normal S1 and S2 without murmur, rub or gallop. ABDOMEN: Soft, nontender, not distended, normoactive bowel sounds, no guarding, no rebound, no masses. No hepatomegaly or splenomegaly. MUSCULOSKELETAL: Normal range of motion at all joints. No bony deformities or tenderness. No CVA tenderness. Muscle strength: RUE 4-/5, LUE 4/5, RLE 3/5, LLE 4/5 UPPER EXTREMITIES: 2+ pulses, warm, well-perfused. No cyanosis. No clubbing. No peripheral edema. LOWER EXTREMITIES: 2+ pulses, warm, well-perfused. No calf tenderness. No peripheral edema. NEUROLOGICAL: Cranial nerves II-XII intact. Normal speech. Normal gait. PSYCHIATRIC: Cooperative. Good eye contact. Appropriate mood and affect. SKIN: Warm, dry, normal turgor, no rashes or lesions noted, normal capillary refill. LEFT DISTAL LOWER EXTREMITY: "v" shaped full thickness laceration, erythema resolved, no drainage. LABS Laboratory Results - last 24 hr 06/10/17 06/10/17 08:00 08:00 WBC 11.6 H RBC 3.77 Hgb 11.5 Hct 33.1 MCV 87.8 MCH 30.6 MCHC 34.8 RDW 28.4 H Plt Count 249 MPV 9.3 Neutrophils % No Result Required. Lymphocytes % No Result Required. Sodium 131 L Potassium 4.8 Chloride 101 Carbon Dioxide 23 Anion Gap 7 L BUN 13 D Creatinine 0.7 Random Glucose 98 Calcium 8.2 L Phosphorus 3.1 D Magnesium 2.0 Microbiology 06/08/17 12:06 Urine - Urine Clean Catch Urine Culture - Final NO GROWTH OBTAINED ECG sinus rhythm with premature supraventricular complexes vs wandering atrial pacemaker septal infact age undetermined poor baseline, interpretation may be affected No obvious acute t wave changes Radiology Reports MRI Brain IMPRESSION: No discrete infarct is identified. A 3 mm chronic microbleed is seen within the left internal capsule posteriorly. Mild periventricular chronic microvascular ischemic changes are seen. Complete versus near complete occlusion of the left internal carotid artery as discussed above. This finding was also described on an MRA exam of 02/15/2017. Within the partially imaged upper cervical spine at the C3-C4 level central canal stenosis is noted which is probably at least moderate to marked. If clinically indicated additional evaluation utilizing a dedicated cervical spine MRI study may be performed. Reported By: Param Orozco MD 06/08/17 1705 CXR IMPRESSION: No acute disease. Reported By: Randal Nesbitt MD 06/08/[address] head IMPRESSION: Moderate atrophy and mild chronic microvascular ischemic changes. No gross acute intracranial pathology is identified. Correlate clinically to determine further evaluation and follow-up Reported By: Jude Talbot MD 06/08/17 1320 HOSPITAL COURSE: * Right sided weakness, MRI and CT neg for acute CVA, MRI with mod to marked spinal stenosis with canal narrowing, MRI c-spine done 12/2016 moderate c5-c6 central canal stenosis symptoms are secondary to moderate stenosis, patient was evaluated by physical therapist recommend restorative care, neurologist, Dr Aquino was consulted. * patient has a history of paroxysmal afib, remained in sinus rhythmn throughout admission, as per patient has not tolerated AC in the past, also has history of daily alcohol use, reports last drank alcohol 06/02/17. patient has a history of diastolic congestive heart failure, remained euvolemic, blood pressure remained at goal, enalparil and toprol, continued. history of carotid stenosis, [facility], deferred any surgical intervention at this time * left lower extremity wound occured 06/03/17 as per patient, tdap given in ED, slight erythema noted upon admission patient ancef given 06/09-06/11, patient was evaluated by plastic surgeon, Dr Portillo, recommened daily dressing changes, xeroform, cling, and chary wrap. * history of copd, daily tobacco smoker, no acute exerbation noted, finished prednisone taper on 06/07/17, continued spiriva, symbicort with albuterol prn PLAN - discharge to SNF for short term rehab Date of Admission:06/09/17 Date of Discharge: 06/10/17 Minutes to complete discharge: 45 Discharge Summary Reason For Visit: RIGHT SIDE BODY WEAKNESS Current Active Problems Right sided weakness (Acute) Condition: Stable - Instructions - Home Medications Comprehensive Discharge Medication List: Ambulatory Orders Albuterol Sulfate [Proair Hfa] 8.5 gm IH Q4HWA 06/08/17 Budesonide/Formeterol Fumarate [SYMBICORT 160/4.5mcg -] 2 inh PO BID 06/08/17 Cholecalciferol (Vitamin D3) [Vitamin D] 2,000 unit PO DAILY 06/08/17 Enalapril Maleate 5 mg PO DAILY 06/08/17 Famotidine 20 mg PO BID 06/08/17 Gabapentin [Neurontin -] 100 mg PO Q8H 06/08/17 Levofloxacin [Levaquin -] 250 mg PO DAILY 06/08/17 Metoprolol Succinate 25 mg PO DAILY 06/08/17 Nicotine Patch [Nicoderm Patch -] 1 patch TD DAILY 06/08/17 Oxycodone HCl 5 mg PO QID 06/08/17 Polyethylene Glycol 3350 [Miralax (For Daily Use) -] 17 gm PO DAILY 06/08/17 Prednisone See Taper PO DAILY 06/08/17 Spironolactone 25 mg PO DAILY 06/08/17 Tiotropium [place] [Spiriva] 1 inh PO DAILY 06/08/17 - Discharge Referral Referred to [facility] No
[2017-06-10] MEDS: BACITRACIN 15 GM TUBE TOPICAL OINTMENT TP SCH (15:34)
[2017-06-10 17:18] LABS: PLATELET ESTIMATE ADEQUATE
[2017-06-10] MEDS: ACETAMINOPHEN 325 MG TABLET (FP) PO PRN (21:39)
[2017-06-11] MEDS: CEFAZOLIN 1 GM/D5W 1 GM/50 ML BAG IVPB SCH ×2 (01:22→10:35)
[2017-06-11] MEDS: ACETAMINOPHEN 325 MG TABLET (FP) PO PRN ×2 (03:42→10:23)
[2017-06-11] MEDS: oxyCODONE HCL 5 MG TABLET PO PRN ×2 (03:42→10:23)
[2017-06-11] MEDS: GABAPENTIN 100 MG CAPSULE (FP) PO SCH (06:37)
[2017-06-11] MEDS: HEPARIN NA (PORCINE) 5,000 UNITS/ML 1ML VIAL SQ SCH (06:37)
[2017-06-11 06:55] VITALS: BP 138/50; PULSE 87; TEMP 97.8
[2017-06-11] MEDS ORDERED: CEPHALEXIN MONOHYDRATE 500 MG CAPSULE (UD) PO SCH (10:00)
[2017-06-11] MEDS: BACITRACIN 15 GM TUBE TOPICAL OINTMENT TP SCH (10:00)
[2017-06-11] MEDS: POLYETHYLENE GLYCOL 3350 119 GM BTL PO SCH (10:00)
[2017-06-11] MEDS: CHOLECALCIFEROL (VITAMIN D3) 1,000 UNIT TABLET (FP) PO SCH (10:22)
[2017-06-11] MEDS: ENALAPRIL MALEATE 5 MG TABLET (FP) PO SCH (10:22)
[2017-06-11] MEDS: METOPROLOL SUCCINATE 25 MG TAB.SR.24H (FP) PO SCH (10:23)
[2017-06-11] MEDS: ASPIRIN 81 MG CHEWABLE TABLETS PO SCH (10:23)
[2017-06-11] MEDS: FAMOTIDINE 20 MG TABLET PO SCH (10:23)
[2017-06-11] MEDS: SPIRONOLACTONE 25 MG TABLET (FP) PO SCH (10:23)
[2017-06-11] MEDS: NICOTINE 14 MG/24 HOURS TOPICAL PATCH TD SCH (10:35)
[2017-06-11] MEDS ORDERED: PT OWN MED DRAWER 7, Y5N ONE ×2 (10:36→10:44)
[2017-06-11] MEDS: TIOTROPIUM BROMIDE 18 MCG/INH (DEVICE W/ 5 CAPSULES) IH SCH (10:40)
[2017-06-11] MEDS: BUDESONIDE/FORMETEROL FUMARATE 160/4.5 mcg INHALER IH SCH (10:41)
[2017-06-13 15:44] LABS: URINE COLOR YELLOW
== END 2017-06-11 11:13 | DRG 552 ==
LOC: FER 10:58 → UNDOADMOB 16:07 → INTOOBSV 16:07 → FM/S 16:07 → OBSVTOIN 06-09 11:18
PROVIDERS: ADMIT Internal Medicine; ATTEND Registered Nurse Emergency
DX: M48.02 Spinal stenosis, cervical region (principal); E87.1 Hypo-osmolality and hyponatremia; I25.10 Atherosclerotic heart disease of native coronary artery without angina pectoris; I73.9 Peripheral vascular disease, unspecified; J44.9 Chronic obstructive pulmonary disease, unspecified; I11.0 Hypertensive heart disease with heart failure; I50.9 Heart failure, unspecified; Z88.0 Allergy status to penicillin; F17.210 Nicotine dependence, cigarettes, uncomplicated; E87.5 Hyperkalemia; I48.0 Paroxysmal atrial fibrillation; E86.1 Hypovolemia
CPT/HCPCS: 36415; 70450-TC; 70551-TC; 71045-TC; 80048; 80053; 80061; 81003; 82465; 82550; 83718; 83721; 83735; 84100; 84484; 85025; 85610; 87086; 93005; 97116-GP; 97162-GP; 99284-25; G0378

== ENCOUNTER 2017-06-20 15:18 | Inpatient (IN) | payer OTHER, MEDICARE ==
[2017-06-20 16:05] LABS: BASO % 0.4 % (0-2.0); EOS % 0.6 % (0-4.5); HEMATOCRIT 37.6 % (32.4-45.2); HEMOGLOBIN 12.8 GM/dL (10.7-15.3); LYMPH % 7.4 % (8-40); MCH 29.9 pg (25.7-33.7); MCHC 34.1 g/dl (32.0-36.0); MEAN CELL VOLUME 87.7 fl (80-96); MEAN PLT VOLUME 7.9 fl (7.5-11.1); MONO % 5.8 % (3.8-10.2); NEUT % 85.8 % (42.8-82.8); PLATELET COUNT 367 K/MM3 (134-434); RBC 4.28 M/mm3 (3.60-5.2); RDW 24.9 % (11.6-15.6); WHITE BLOOD COUNT 11.5 K/mm3 (4.0-10.0)
[2017-06-20 16:10] LABS: ANION GAP 11 (8-16); BILIRUBIN,TOTAL 0.8 mg/dL (0.2-1.0); BLOOD UREA NITROGEN 34 mg/dL (7-18); CALCIUM 8.6 mg/dL (8.5-10.1); CHLORIDE 94 mmol/L (98-107); CO2 21 mmol/L (21-32); CREATININE 0.9 mg/dL (0.55-1.02); GLUCOSE,RANDOM 121 mg/dL (74-106); SGOT/AST 51 U/L (15-37); SGPT/ALT 45 U/L (12-78); SODIUM 126 mmol/L (136-145); TOT PROT 6.6 g/dl (6.4-8.2)
[2017-06-20 16:11] LABS: ALK PHOS 195 U/L (45-117)
--- NOTE | 2017-06-20 16:11 | PDOC ---
History of Present Illness - General Chief Complaint: Coffee Ground Emesis Stated Complaint: BLEEDING Time Seen by Provider: 06/20/17 15:36 History Source: Patient Exam Limitations: No Limitations - History of Present Illness Initial Comments: 06/20/17 16:10 The patient is an 86F with a PMH of COPD, CHF, HTN, CAD, PVD, carotid stenosis, diverticulitis, spinal stenosis who presents to the ED from her [facility] ([facility]) for coffee ground emesis since this morning. She states that she has had 6-8 bouts of emesis. According to [facility] notes, she was given protonix. She had an endoscopy 2 weeks ago and is unsure of the results. Her only complaint is feeling nauseous and wretching, with coffee ground emesis. She denies CP, SOB, abdominal pain, and blood in her vomitus. She says she has constipation and that is baseline for her. Her last BM was 2 days ago. Past History - Past Medical History Allergies/Adverse Reactions: Allergies Allergy/AdvReac Type Severity Reaction Status Date / Time Penicillins Allergy Itching Verified 06/20/17 16:54 CATS Allergy Intermediate cough and Uncoded 06/20/17 16:54 wheezing. Home Medications: Ambulatory Orders Albuterol Sulfate [Proair Hfa] 8.5 gm IH Q4HWA 06/08/17 Budesonide/Formeterol Fumarate [SYMBICORT 160/4.5mcg -] 2 inh PO BID 06/08/17 Cholecalciferol (Vitamin D3) [Vitamin D3] 2,000 unit PO DAILY 06/08/17 Enalapril Maleate 5 mg PO DAILY 06/08/17 Famotidine 20 mg PO BID 06/08/17 Gabapentin [Neurontin -] 100 mg PO Q8H 06/08/17 Metoprolol Succinate 25 mg PO DAILY 06/08/17 Nicotine Patch [Nicoderm Patch -] 1 patch TD DAILY 06/08/17 Oxycodone HCl 5 mg PO QID 06/08/17 Polyethylene Glycol 3350 [Miralax 119 gm Btl -] 17 gm PO DAILY 06/08/17 Spironolactone 25 mg PO DAILY 06/08/17 Tiotropium [place] [Spiriva] 1 inh PO DAILY 06/08/17 Acetaminophen [Tylenol .Regular Strength -] 650 mg PO Q6H PRN tablet 06/10/17 Albuterol 0.083% Nebulizer Miley [Ventolin 0.083% Nebulizer Soln -] 1 amp NEB Q4H PRN amp 06/10/17 Aspirin [ASA -] 81 mg PO DAILY tab.chew 06/10/17 Bacitracin - [Bacitracin Topical Ointment -] 1 applic TP DAILY tube 06/10/17 Budesonide/Formeterol Fumarate [SYMBICORT 160/4.5mcg -] 2 puff IH BID inhaler 06/10/17 Cephalexin Monohydrate [Keflex -] 500 mg PO Q6HPO capsule 06/10/17 Magnesium Hydrox 2400MG/30Ml [Milk of Magnesia -] 30 ml PO DAILY PRN cup Anemia: Yes Asthma: No Cancer: No Cardiac Disorders: Yes (CAD) CVA: No COPD: Yes CHF: No Dementia: No Diabetes: No GI Disorders: Yes (diverticulitis) Disorders: No HTN: Yes Hypercholesterolemia: No Liver Disease: No Seizures: No Thyroid Disease: No - Surgical History Abdominal Surgery: Yes (DIVERTICULITIS) Appendectomy: No Cardiac Surgery: No Cholecystectomy: No GI Surgery: Yes (PARITAL COLECTOMY) Lung Surgery: No Neurologic Surgery: No Orthopedic Surgery: Yes - Suicide/Smoking/Psychosocial Hx Smoking History: Unknown if ever smoked Have you smoked in the past 12 months: Yes Number of Cigarettes Smoked Daily: 10 Information on smoking cessation initiated: No 'Breaking Loose' booklet given: 05/31/17 Hx Alcohol Use: Yes Drug/Substance Use Hx: No Substance Use Type: None Hx Substance Use Treatment: No Review of Systems - Review of Systems Able to Perform ROS?: Yes Comments:: 06/20/17 16:45 GENERAL/CONSTITUTIONAL: No fever or chills. No weakness. HEAD, EYES, EARS, NOSE AND THROAT: No change in vision. No ear pain or discharge. No sore throat. CARDIOVASCULAR: No chest pain, palpitations, or lightheadedness. RESPIRATORY: No cough, wheezing, shortness of breath, or hemoptysis. GASTROINTESTINAL: Positive for nausea, coffee ground emesis, and constipation. No diarrhea, constipation, or abdominal pain. GENITOURINARY: No dysuria, frequency, hematuria, or change in urination. MUSCULOSKELETAL: No joint or muscle swelling or pain. No neck or back pain. SKIN: No rash or lesions. NEUROLOGIC: No headache, numbness, tingling, weakness, loss of consciousness, or change in strength/sensation. ENDOCRINE: No increased thirst. No abnormal weight change. HEMATOLOGIC/LYMPHATIC: No anemia, easy bleeding, or history of blood clots. ALLERGIC/IMMUNOLOGIC: No hives or skin allergy. Is the patient limited Guatemalan proficient: No *Physical Exam - Vital Signs Last Vital Signs Temp Pulse Resp BP Pulse Ox 98.3 F 56 L 123/78 92 L 06/20/17 15:38 06/20/17 15:38 06/20/17 15:38 06/20/17 15:38 - Physical Exam Comments: 06/20/17 16:46 GENERAL: Well developed, well nourished. Awake and alert. No acute distress. Coffee ground emesis present on gown. HEENT: Normocephalic, atraumatic. Hearing grossly normal. Moist mucous membranes. PERRLA, EOMI. No conjunctival pallor. Sclera are non-icteric. NECK: Supple. Full ROM. No JVD. Carotid pulses 2+ and symmetric, without bruits. CARDIOVASCULAR: Regular rate and rhythm. No murmurs, rubs, or gallops. PULMONARY: No evidence of respiratory distress. Lungs clear to auscultation bilaterally. No wheezing, rales or rhonchi. ABDOMINAL: Soft. Non-tender. Non-distended. No rebound or guarding. MUSCULOSKELETAL: Normal range of motion at all joints. No bony deformities or tenderness. EXTREMITIES: No cyanosis. No clubbing. No edema. No calf tenderness. SKIN: Warm and dry. Normal capillary refill. No rashes. No jaundice. NEUROLOGICAL: Alert, awake, appropriate. Cranial nerves 2-12 intact. Normal speech. Gait is normal without ataxia. PSYCHIATRIC: Cooperative. Good eye contact. Appropriate mood and affect. Heart Score/ECG Review #1 ECG reviewed & interpreted by me at: 16:49 General ECG Interpretation: Sinus Rhythm, Normal Rate, Normal Intervals, No acute ischemic changes Compared to previous ECG there are: Changes noted (Improved from previous EKG.) 06/20/17 16:51 Sinus tach 113 APC present QT borderline 466 QRS 84 ED Treatment Course - LABORATORY CBC & Chemistry Diagram: 06/20/17 15:34 06/20/17 15:34 - RADIOLOGY Radiology Studies Ordered: Category Date Time Status CHEST X-RAY PORTABLE* [RAD] Stat Radiology 06/20/17 15:59 Ordered Medical Decision Making - Medical Decision Making 06/20/17 16:53 The patient is an 86 F with an extensive PMH who presents with coffee ground emesis. Hgb stable. EKG improved from previous. Slightly hyponatremic. Fluids ordered. IV protonix being given. Will admit pt (pt is a pt of Dr. Marcial). Hospitalist microblogged. Per RN, pt is continuing to vomit coffee ground emesis. 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 06/20/17 17:01 Lucie BUSINESS DEVELOPMENT CONSULTANT accepts admission to [facility] bed for Dr. Urieb. *DC/Admit/Observation/Transfer Diagnosis at time of Disposition: Coffee ground emesis - Discharge Dispostion Condition at time of disposition: Guarded Admit: Yes - Referrals - Patient Instructions - Post Discharge Activity
[2017-06-20 16:23] LABS: ADD RBC MORPHOLOGY YES
[2017-06-20 16:24] LABS: INR 1.18 (0.82-1.09); PROTHROMBIN TIME (PATIENT) 13.3 SEC (9.98-11.88)
[2017-06-20 16:26] LABS: ACTIVATED PTT 36.2 SECONDS (26.9-34.4)
[2017-06-20] MEDS ORDERED: METOCLOPRAMIDE HCL INJECTION 10 MG/2 ML VIAL IVPB ONE (16:37)
[2017-06-20] MEDS ORDERED: SODIUM CHLORIDE 0.9% 1000 ML INFUS.BAG IV ONE (16:42)
[2017-06-20] MEDS ORDERED: PANTOPRAZOLE SODIUM 40 MG in SODIUM CHLORIDE 100 ML IVPB ONE (16:52)
--- NOTE | 2017-06-20 16:53 | PDOC ---
Attending Attestation - Resident Resident Name: Luis CarlosshimaainsleyHeriberto - ED Attending Attestation I have performed the following: I have examined & evaluated the patient, The case was reviewed & discussed with the resident, I agree w/resident's findings & plan, Exceptions are as noted - HPI HPI: 06/20/17 16:49 86-year-old female on Lovenox presents from half-way with several episodes of coffee-ground emesis today without abdominal pain. - Physicial Exam PE: 06/20/17 16:50 Blood pressure normal but tachycardia, O2 sat at baseline secondary to COPD Alert, retching No crepitus and chest Abdomen is soft/nondistended, only slight epigastric discomfort without guarding or rebound - Critical Care Time Total Critical Care Time: 30 Critical Care Statement: The care of this patient involved high complexity decision making to prevent further life threatening deterioration of the patient 's condition and/or to evaluate & treat vital organ system(s) failure or risk of failure. - Medical Decision Making 06/20/17 16:50 Patient seen and evaluated with the resident. I agree with the overall evaluation, assessment, and management with the following summary of visit: 86-year-old female with hematemesis, possible upper GI bleed, has history of EtOH abuse question varices. Tachycardia but blood pressure stable, no respiratory distress. On Lovenox. Placed on monitor and IV fluid resuscitation initiated Already received IV Protonix and half-way Hemoglobin stable at this time, will continue to trend Admission and GI consultation Heart Score/ECG Review #1 ECG reviewed & interpreted by me at: 16:27 General ECG Interpretation: Sinus Rhythm (tachy at 113 with APCs noted), Normal Intervals (qtc borderline at 466), No acute ischemic changes (PRWP, isolated q III)
[2017-06-20] MEDS ORDERED: PANTOPRAZOLE SODIUM 40 MG VIAL ONE (16:56)
[2017-06-20] MEDS ORDERED: ALBUTEROL SO4 0.083% IH SOL 2.5 MG/3 ML VIAL.NEB. NEB PRN (17:06)
[2017-06-20] MEDS ORDERED: SODIUM CHLORIDE 1,000 ML IV SCH (17:15)
[2017-06-20 18:08] LABS: ANISOCYTOSIS 2+; MACROCYTOSIS 1+; PLATELET ESTIMATE ADEQUATE; TARGET CELLS 1+
--- NOTE | 2017-06-20 18:09 | HP ---
CHIEF COMPLAINT: coffee ground emesis PCP: Dr. Anderson HISTORY OF PRESENT ILLNESS: This is an 86 year old female with PMHx of spinal stenosis, CHF, CAD, COPD, HTN , diverticulitis, colon resection 1993, left lower extremity wound, who presented to the ED with coffee ground emesis that began this morning. The patient reports that she had nausea and the vomiting began. At the [facility] she received Protonix and Pepcid. The patient denies any diarrhea, chest pain, palpitations, headache, dizziness, blurred vision, lower extremity swelling. ER course was notable for: (1) Temp 98.3, HR 56-120, BP 113/44, resp 20, Or 98% on RA (2) WBC 11.5, Hgb 12.8, Hct 37.6, Na 126, BUN 34, Cr 0.9 (3) Chest X-ray: no gross free air seen under the diaphragms. Cardiac sillhouette slightly enlarged. Lung is clear Recent Travel: denies PAST MEDICAL HISTORY: as above PAST SURGICAL HISTORY: as above Social History: Smokinppd until recent admission Alcohol: heavy drinker until recent admission Drugs: denies Family History: Allergies Penicillins Allergy (Verified 06/20/17 16:54) Itching RASH CATS Allergy (Intermediate, Uncoded 06/20/17 16:54) cough and wheezing. HOME MEDICATIONS: Home Medications Medication Instructions Recorded Budesonide/Formeterol Fumarate 2 inh PO BID 06/08/17 [SYMBICORT 160/4.5mcg -] Cholecalciferol (Vitamin D3) 2,000 unit PO DAILY 06/08/17 [Vitamin D3] Enalapril Maleate 5 mg PO DAILY 06/08/17 Famotidine 20 mg PO BID 06/08/17 Gabapentin [Neurontin -] 100 mg PO Q8H 06/08/17 Metoprolol Succinate 25 mg PO DAILY 06/08/17 Oxycodone HCl 5 mg PO QID 06/08/17 Spironolactone 25 mg PO DAILY 06/08/17 Acetaminophen [Tylenol .Regular 650 mg PO Q6H PRN tablet 06/10/17 Strength -] Albuterol 0.083% Nebulizer Miley 1 amp NEB Q4H PRN amp 06/10/17 [Ventolin 0.083% Nebulizer Soln -] Aspirin [ASA -] 81 mg PO DAILY tab.chew 06/10/17 Bacitracin - [Bacitracin Topical 1 applic TP DAILY tube 06/10/17 Ointment -] Aa/Hydrolyzed Collagen, Whey [Lps 30 ml PO BID 06/20/17 15-30 Liquid] Ascorbate Calcium [Vitamin C] 500 mg PO DAILY 06/20/17 Bisacodyl [Dulcolax] 10 mg RC DAILY PRN 06/20/17 Bismuth Tribromoph/Petrolatum 1 each TP DAILY 06/20/17 [Xeroform 5"X9" Gauze Strip] Enoxaparin Sodium [Lovenox] 40 mg SQ DAILY 06/20/17 Magnesium Hydrox 2400MG/30Ml [Milk 30 ml PO DAILY PRN 06/20/17 of Magnesia -] Multivitamin [Poly-Vitamin] 1 each PO DAILY 06/20/17 Nutritional Supplement [Hi-Campbell] 120 ml PO BID 06/20/17 Ondansetron HCl/Pf [Ondansetron 4 4 mg IM Q8H PRN 06/20/17 mg/2 ml Isecure] Pantoprazole Sodium [Protonix -] 40 mg PO DAILY 06/20/17 Polyethylene Glycol 3350 17 gm PO DAILY 06/20/17 [Smoothlax] Tiotropium [place] [Spiriva] 1 inh PO DAILY 06/20/17 Zinc Sulfate [Orazinc] 220 mg PO DAILY 06/20/17 REVIEW OF SYSTEMS CONSTITUTIONAL: Absent: fever, chills, diaphoresis, generalized weakness, malaise, loss of appetite, weight change CARDIOVASCULAR: Absent: chest pain, syncope, palpitations, irregular heart rate , lightheadedness, peripheral edema RESPIRATORY: Absent: cough, shortness of breath, dyspnea with exertion, wheezing , stridor GASTROINTESTINAL: Coffee ground emesis that began this morning. Absent: abdominal pain, abdominal distension, diarrhea, constipation, melena GENITOURINARY: Absent: dysuria, frequency, urgency, hesitancy, hematuria, flank pain, genital pain MUSCULOSKELETAL: Absent: myalgia, arthralgia, joint swelling, back pain, neck pain SKIN: Leg leg wound. Absent: rash, itching, pallor HEMATOLOGIC/IMMUNOLOGIC: Absent: easy bleeding, easy bruising, lymphadenopathy, frequent infections ENDOCRINE:Absent: unexplained weight gain, unexplained weight loss, heat intolerance, cold intolerance NEUROLOGIC: Absent: headache, focal weakness or paresthesias, dizziness, unsteady gait, seizure, mental status changes, bladder or bowel incontinence PSYCHIATRIC: Absent: anxiety, depression, suicidal or homicidal ideation, hallucinations. PHYSICAL EXAMINATION Vital Signs - 24 hr 06/20/17 06/20/17 06/20/17 15:38 15:45 16:22 Temperature 98.3 F Pulse Rate 56 L Pulse Rate [ 114 H Apical] Respiratory 24 Rate Blood Pressure 123/78 Blood Pressure 123/78 [Left Arm] O2 Sat by Pulse 92 L 95 Oximetry (%) 06/20/17 06/20/17 17:05 18:02 Temperature Pulse Rate Pulse Rate [ 111 H 120 H Apical] Respiratory 22 20 Rate Blood Pressure Blood Pressure 130/80 113/44 [Left Arm] O2 Sat by Pulse 95 98 Oximetry (%) GENERAL: Awake, alert, and fully oriented, in no acute distress. HEAD: Normal with no signs of trauma. EYES: Pupils equal, round and reactive to light, extraocular movements intact, sclera anicteric, conjunctiva clear. No lid lag. EARS, NOSE, THROAT: Dry mucous membranes LUNGS: Breath sounds equal, clear to auscultation bilaterally. No wheezes, and no crackles HEART: Tachycardia, S1S2 ABDOMEN: Soft, mild diffuse tenderness MUSCULOSKELETAL: Normal range of motion at all joints. No bony deformities or tenderness. No CVA tenderness. UPPER EXTREMITIES: 2+ pulses, warm, well-perfused. No cyanosis. No clubbing. No peripheral edema. LOWER EXTREMITIES: Left lateral calf wound, pink base, no discharge or foul smell NEUROLOGICAL: Cranial nerves II-XII intact. Normal speech PSYCHIATRIC: Cooperative. Good eye contact. Appropriate mood and affect. SKIN: Multiple lower extremity leg wounds Laboratory Results - last 24 hr 06/20/17 06/20/17 06/20/17 15:34 15:34 15:34 WBC 11.5 H RBC 4.28 Hgb 12.8 Hct 37.6 MCV 87.7 MCH 29.9 MCHC 34.1 RDW 24.9 H Plt Count 367 MPV 7.9 Neutrophils % 85.8 H Lymphocytes % 7.4 L Monocytes % 5.8 Eosinophils % 0.6 Basophils % 0.4 Platelet Estimate Adequate Platelet Comment Poikilocytosis 1+ Anisocytosis 2+ Macrocytosis 1+ Target Cells 1+ PT with INR 13.30 H INR 1.18 H PTT (Actin FS) 36.2 H Sodium 126 L Potassium 5.0 Chloride 94 L Carbon Dioxide 21 Anion Gap 11 BUN 34 H Creatinine 0.9 Creat Clearance w eGFR 59.65 Random Glucose 121 H Calcium 8.6 Total Bilirubin 0.8 AST 51 H ALT 45 Alkaline Phosphatase 195 H Total Protein 6.6 Albumin 3.0 L Blood Type Antibody Screen 06/20/17 15:34 WBC RBC Hgb Hct MCV MCH MCHC RDW Plt Count MPV Neutrophils % Lymphocytes % Monocytes % Eosinophils % Basophils % Platelet Estimate Platelet Comment Poikilocytosis Anisocytosis Macrocytosis Target Cells PT with INR INR PTT (Actin FS) Sodium Potassium Chloride Carbon Dioxide Anion Gap BUN Creatinine Creat Clearance w eGFR Random Glucose Calcium Total Bilirubin AST ALT Alkaline Phosphatase Total Protein Albumin Blood Type O POSITIVE Antibody Screen Negative Assessment: This is an 86 year old female with PMHx of spinal stenosis, CHF, CAD , COPD, HTN, diverticulitis, colon resection 1993, left lower extremity wound, who presented to the ED with coffee ground emesis that began this morning. Plan: 1) Acute upper GI bleed - Hgb 12.8->12.4 - Protonix gtt - CBC q4h - Transfuse if Hgb <8 - Continuous cardiac monitoring - IV fluids - NPO - Abd x-ray to rule out SBO - Monitor vital signs closely - Discussed case with Dr. Oquendo 2) Hypovolemia hyponatremia - 2/2 upper GI bleed - NS @ 75cc/hr - Monitor BMP q4h, sodium correction should not exceed >0.5 mmol/hr - F/u nephrology consult 3) CHF - No evidence of acute exacerbation at this time 4) CAD - Hold ASA 2/2 acute GI bleed - Hold Spironolactone as patient NPO - Hold Lopressor - Hold Enalapril 5) COPD - Continue Symbicort - Continue Spiriva - Continue Albuterol nebs prn 6) Left lower extremity wound - Continue Bacitracin -Local wound care daily 7) F/E/N: - Monitor electrolytes - NPO 8) Prophylaxis: - Hold all chemical DVT prophylaxis 2/2 acute upper GI bleed - Patient has multiple wound on b/l lower extremities, will hold off on TEDs or SCDs and multiple areas of skin breakdown on shins 9) Dispo: - Requires continued inpatient care CODE STATUS: FULL CODE Visit type - Emergency Visit Emergency Visit: Yes ED Registration Date: 06/20/17 Care time: The patient presented to the Emergency Department on the above date and was hospitalized for further evaluation of their emergent condition. - New Patient This patient is new to me today: Yes Date on this admission: 06/21/17 - Critical Care Critical Care patient: No
[2017-06-20 18:19] LABS: HEMATOCRIT 36.5 % (32.4-45.2); HEMOGLOBIN 12.4 GM/dL (10.7-15.3); MCH 30.1 pg (25.7-33.7); MCHC 33.9 g/dl (32.0-36.0); MEAN CELL VOLUME 88.8 fl (80-96); MEAN PLT VOLUME 7.2 fl (7.5-11.1); PLATELET COUNT 365 K/MM3 (134-434); RBC 4.11 M/mm3 (3.60-5.2); WHITE BLOOD COUNT 10.5 K/mm3 (4.0-10.0)
[2017-06-20 19:00] LABS: ANION GAP 12 (8-16); BLOOD UREA NITROGEN 33 mg/dL (7-18); CALCIUM 8.3 mg/dL (8.5-10.1); CHLORIDE 96 mmol/L (98-107); CO2 21 mmol/L (21-32); GLUCOSE,RANDOM 118 mg/dL (74-106); POTASSIUM 5.1 mmol/L (3.5-5.1); SODIUM 129 mmol/L (136-145)
[2017-06-20 19:01] LABS: CREATININE 0.9 mg/dL (0.55-1.02)
[2017-06-20] MEDS ORDERED: ONDANSETRON 4 MG/2 ML VIAL IVPUSH ONE (19:05)
[2017-06-20 22:14] LABS: HEMATOCRIT 33.7 % (32.4-45.2); HEMOGLOBIN 11.4 GM/dL (10.7-15.3); MCH 29.7 pg (25.7-33.7); MCHC 33.8 g/dl (32.0-36.0); MEAN CELL VOLUME 87.9 fl (80-96); MEAN PLT VOLUME 7.5 fl (7.5-11.1); PLATELET COUNT 367 K/MM3 (134-434); RBC 3.84 M/mm3 (3.60-5.2); RDW 24.1 % (11.6-15.6)
[2017-06-20] MEDS ORDERED: TRIMETHOBENZAMIDE HCL 200MG/2ML INJ IM ONE (22:36)
[2017-06-20] MEDS: BUDESONIDE/FORMETEROL FUMARATE 160/4.5 mcg INHALER IH SCH (22:43)
[2017-06-20 23:25] LABS: ANION GAP 15 (8-16); BLOOD UREA NITROGEN 35 mg/dL (7-18); CALCIUM 8.2 mg/dL (8.5-10.1); CHLORIDE 97 mmol/L (98-107); CO2 19 mmol/L (21-32); CREATININE 0.9 mg/dL (0.55-1.02); GLUCOSE,RANDOM 106 mg/dL (74-106); POTASSIUM 4.9 mmol/L (3.5-5.1); SODIUM 131 mmol/L (136-145)
[2017-06-20] MEDS ORDERED: SODIUM CHLORIDE 250 ML IV STA (23:26)
--- NOTE | 2017-06-20 23:50 | HOSP ---
Subjective - Review of Symptoms Events since last encounter: Pt continues to vomit despite zofran and one dose of tigan. Nurse reports that liquid was coffee ground, but now is brown. Latest SBP dipped into 80s. NS 250cc bolus ordered. Subjective: Pt c/o vomiting. denies abdominal pain. Physical Examination Vital Signs: Vital Signs Temperature 98.8 F 06/20/17 22:00 Pulse Rate 109 H 06/20/17 22:00 Respiratory Rate 20 06/20/17 22:00 Blood Pressure 101/57 06/20/17 22:00 O2 Sat by Pulse Oximetry (%) 100 06/20/17 18:40 Cardiovascular: Yes: Regular Rate and Rhythm Respiratory: Yes: CTA Bilaterally Gastrointestinal: Yes: Tenderness, Other (abdomen firm, hypoactive bowel sounds , mult surgical scars lower abdomen) Extremities: Yes: Other (contractures of hips and knees noted, unable to straighten) Edema: No Labs: CBC, BMP 06/20/17 21:55 06/20/17 21:55 Hospitalist Encounter Assessment: vomiting--likely SBO - Abd xray, single view with dilated loops small bowel - NGT placed, taped at 53cm, 600cc brown/bilious fecal smelling liquid obtained, abd now soft, nontender - will obtain xray for NGT placement, then likely CT abd/pelvis - surgical consult if CT reveals SBO - NS 250cc bolus for low BP hypontremia - sodium up to 131, will change maintenance fluids to 1/2NS. Addendum: 0115: Ct with SBO. Surgical consult ordered. Overdistended bladder also noted, nurse reports pt saturated with urine. Bladder scan to be done. NGT noted in stomach 0145: Bladder scan done. >999mL urine. Will insert gee.
[2017-06-21] MEDS: TETRACAINE/BENZOCAINE/BUTAMBEN 20 GM SPR TP PRN ×2 (00:08→11:32)
[2017-06-21] MEDS ORDERED: SODIUM CHLORIDE 0.45% 1,000 ML IV SCH (00:15)
[2017-06-21 02:28] LABS: HEMATOCRIT 34.4 % (32.4-45.2); HEMOGLOBIN 11.5 GM/dL (10.7-15.3); MCH 29.5 pg (25.7-33.7); MCHC 33.5 g/dl (32.0-36.0); MEAN CELL VOLUME 88.2 fl (80-96); MEAN PLT VOLUME 7.4 fl (7.5-11.1); PLATELET COUNT 375 K/MM3 (134-434); RBC 3.91 M/mm3 (3.60-5.2); RDW 25.1 % (11.6-15.6); WHITE BLOOD COUNT 11.6 K/mm3 (4.0-10.0)
[2017-06-21 02:49] LABS: ANION GAP 14 (8-16); BLOOD UREA NITROGEN 37 mg/dL (7-18); CALCIUM 8.4 mg/dL (8.5-10.1); CHLORIDE 99 mmol/L (98-107); CO2 19 mmol/L (21-32); GLUCOSE,RANDOM 111 mg/dL (74-106); POTASSIUM 4.8 mmol/L (3.5-5.1); SODIUM 132 mmol/L (136-145)
[2017-06-21] MEDS ORDERED: ONDANSETRON 4 MG/2 ML VIAL IVPUSH PRN (04:00)
[2017-06-21 04:17] VITALS: BMI 22.6
[2017-06-21 08:05] LABS: HEMATOCRIT 32.5 % (32.4-45.2); HEMOGLOBIN 10.7 GM/dL (10.7-15.3); MCH 29.5 pg (25.7-33.7); MCHC 32.8 g/dl (32.0-36.0); MEAN CELL VOLUME 89.9 fl (80-96); PLATELET COUNT 380 K/MM3 (134-434); RBC 3.61 M/mm3 (3.60-5.2); RDW 24.9 % (11.6-15.6); WHITE BLOOD COUNT 10.3 K/mm3 (4.0-10.0)
[2017-06-21 08:15] LABS: ALBUMIN 2.6 g/dl (3.4-5.0); ANION GAP 14 (8-16); BLOOD UREA NITROGEN 37 mg/dL (7-18); CHLORIDE 100 mmol/L (98-107); CO2 18 mmol/L (21-32); GLUCOSE,RANDOM 94 mg/dL (74-106); MAGNESIUM 2.1 mg/dL (1.8-2.4); POTASSIUM 4.8 mmol/L (3.5-5.1); SGOT/AST 26 U/L (15-37); SGPT/ALT 33 U/L (12-78); SODIUM 132 mmol/L (136-145)
[2017-06-21 08:18] LABS: ALK PHOS 149 U/L (45-117); BILIRUBIN,TOTAL 0.6 mg/dL (0.2-1.0); CREATININE 1.1 mg/dL (0.55-1.02); PHOSPHOROUS 4.6 mg/dL (2.5-4.9); TOT PROT 5.5 g/dl (6.4-8.2)
[2017-06-21 08:25] LABS: ANION GAP 13 (8-16); BLOOD UREA NITROGEN 38 mg/dL (7-18); CHLORIDE 100 mmol/L (98-107); CO2 18 mmol/L (21-32); GLUCOSE,RANDOM 92 mg/dL (74-106); POTASSIUM 4.7 mmol/L (3.5-5.1); SODIUM 131 mmol/L (136-145)
[2017-06-21 08:33] LABS: ADD RBC MORPHOLOGY YES
--- NOTE | 2017-06-21 09:05 | CONSULT ---
- Consultation REQUESTING PROVIDER: ER MD CONSULT REQUEST: We have been asked to surgically evaluate this patient for ? sbo ? PCP:Elicia Persaud HISTORY OF PRESENT ILLNESS: NIKHIL who is an 86 y/o white female who presents w/ emesis; bloody of acute onset; NOC; she has a h/o constipation/obstipation requiring laxatives every few days; she has a h/o a partial colon resection for diverticular disease in the past; she has NOC; she has # medical comorbid conditions. PMHx: COPD; AF; constipation; HTN PSHx: partial colon resection Home Medications Medication Instructions Recorded Budesonide/Formeterol Fumarate 2 inh PO BID 06/08/17 [SYMBICORT 160/4.5mcg -] Cholecalciferol (Vitamin D3) 2,000 unit PO DAILY 06/08/17 [Vitamin D3] Enalapril Maleate 5 mg PO DAILY 06/08/17 Famotidine 20 mg PO BID 06/08/17 Gabapentin [Neurontin -] 100 mg PO Q8H 06/08/17 Metoprolol Succinate 25 mg PO DAILY 06/08/17 Oxycodone HCl 5 mg PO QID 06/08/17 Spironolactone 25 mg PO DAILY 06/08/17 Acetaminophen [Tylenol .Regular 650 mg PO Q6H PRN tablet 06/10/17 Strength -] Albuterol 0.083% Nebulizer [place] 1 amp NEB Q4H PRN amp 06/10/17 [Ventolin 0.083% Nebulizer Soln -] Aspirin [ASA -] 81 mg PO DAILY tab.chew 06/10/17 Bacitracin - [Bacitracin Topical 1 applic TP DAILY tube 06/10/17 Ointment -] Aa/Hydrolyzed Collagen, Whey [Lps 30 ml PO BID 06/20/17 15-30 Liquid] Ascorbate Calcium [Vitamin C] 500 mg PO DAILY 06/20/17 Bisacodyl [Dulcolax] 10 mg RC DAILY PRN 06/20/17 Bismuth Tribromoph/Petrolatum 1 each TP DAILY 06/20/17 [Xeroform 5"X9" Gauze Strip] Enoxaparin Sodium [Lovenox] 40 mg SQ DAILY 06/20/17 Magnesium Hydrox 2400MG/30Ml [Milk 30 ml PO DAILY PRN 06/20/17 of Magnesia -] Multivitamin [Poly-Vitamin] 1 each PO DAILY 06/20/17 Nutritional Supplement [Hi-Campbell] 120 ml PO BID 06/20/17 Ondansetron HCl/Pf [Ondansetron 4 4 mg IM Q8H PRN 06/20/17 mg/2 ml Isecure] Pantoprazole Sodium [Protonix -] 40 mg PO DAILY 06/20/17 Polyethylene Glycol 3350 17 gm PO DAILY 06/20/17 [Smoothlax] Tiotropium [place] [Spiriva] 1 inh PO DAILY 06/20/17 Zinc Sulfate [Orazinc] 220 mg PO DAILY 06/20/17 Allergies Allergy/AdvReac Type Severity Reaction Status Date / Time Penicillins Allergy Itching Verified 06/20/17 16:54 CATS Allergy Intermediate cough and Uncoded 06/20/17 16:54 wheezing. PHYSICAL EXAM: GENERAL: Awake, alert, and fully oriented, in no acute distress. HEAD: Normal with no signs of trauma. EYES:sclera anicteric, conjunctiva clear. NECK: Normal ROM, supple without lymphadenopathy, JVD, or masses. ABDOMEN: Soft, nontender, not distended, sluggish bowel sounds, no guarding, no rebound, no masses. No organomegaly. Tympany is present. Healed lower midline scar w/? proximal hernia? chronically incarcerated; o/w negative. MUSCULOSKELETAL: Abnormal ROM at right hip. UPPER EXTREMITIES: 2+ pulses, warm, well-perfused. No cyanosis. Cap refill <2 seconds. No peripheral edema. LOWER EXTREMITIES: 2+ pulses, warm, well-perfused. No calf tenderness. No peripheral edema. NEUROLOGICAL: Normal speech, gait not observed. PSYCH: Cooperative. Good eye contact. Appropriate mood and affect. SKIN: Warm, dry, normal turgor, no rashes or lesions noted. Vital Signs Temperature 98.4 F 06/21/17 06:00 Pulse Rate 112 H 06/21/17 06:00 Respiratory Rate 20 06/21/17 06:00 Blood Pressure 111/49 06/21/17 06:00 O2 Sat by Pulse Oximetry (%) 96 06/20/17 20:00 Lab Results WBC 10.3 K/mm3 (4.0-10.0) H 06/21/17 06:30 RBC 3.61 M/mm3 (3.60-5.2) 06/21/17 06:30 Hgb 10.7 GM/dL (10.7-15.3) 06/21/17 06:30 Hct 32.5 % (32.4-45.2) 06/21/17 06:30 MCV 89.9 fl (80-96) 06/21/17 06:30 MCHC 32.8 g/dl (32.0-36.0) 06/21/17 06:30 RDW 24.9 % (11.6-15.6) H 06/21/17 06:30 Plt Count 380 K/MM3 (134-434) 06/21/17 06:30 Sodium 132 mmol/L (136-145) L 06/21/17 02:00 Potassium 4.8 mmol/L (3.5-5.1) 06/21/17 02:00 Chloride 99 mmol/L (98-107) 06/21/17 02:00 Carbon Dioxide 19 mmol/L (21-32) L 06/21/17 02:00 Anion Gap 14 (8-16) 06/21/17 02:00 BUN 37 mg/dL (7-18) H 06/21/17 02:00 Creatinine 1.0 mg/dL (0.55-1.02) 06/21/17 02:00 Random Glucose 111 mg/dL (74-106) H 06/21/17 02:00 Calcium 8.4 mg/dL (8.5-10.1) L 06/21/17 02:00 Blood Type O POSITIVE 06/20/17 15:34 Antibody Screen Negative 06/20/17 15:34 INR 1.18 (0.82-1.09) H 06/20/17 15:34 Imaging w/u to date reviewed IMP:SBO PLAN: NPO/IVF/NGT/serial exams and imaging studies; will f/u. José Miguel Coffman MD FACS Visit type - Case Type Case Type: ED Admission - Emergency Emergency Visit: Yes ED Registration Date: 06/20/17 Care time: The patient presented to the Emergency Department on the above date and was hospitalized for further evaluation of their emergent condition. - New patient This patient is new to me today: Yes Date on this admission: 06/22/17 - Critical Care Critical Care patient: No
[2017-06-21] MEDS ORDERED: PT OWN MED DRAWER 7, Y5N ONE ×2 (10:08→22:18)
[2017-06-21 10:09] LABS: HEMOGLOBIN 10.8 GM/dL (10.7-15.3); MCH 29.3 pg (25.7-33.7); MCHC 32.7 g/dl (32.0-36.0); MEAN CELL VOLUME 89.4 fl (80-96); MEAN PLT VOLUME 7.4 fl (7.5-11.1); RBC 3.69 M/mm3 (3.60-5.2); RDW 25.4 % (11.6-15.6)
[2017-06-21 10:33] LABS: ANION GAP 13 (8-16); BLOOD UREA NITROGEN 39 mg/dL (7-18); CHLORIDE 102 mmol/L (98-107); CO2 17 mmol/L (21-32); GLUCOSE,RANDOM 98 mg/dL (74-106); SODIUM 132 mmol/L (136-145)
--- NOTE | 2017-06-21 10:42 | CONSULT ---
Consult Consult Specialty:: Nephrology Referred by:: Lucie Johns NP Reason for Consultation:: Hyponatremia - History of Present Illness Chief Complaint: hematemesis History of Present Illness: 86F with PMH of spinal stenosis, Afib, CHF, CAD, PVD, COPD, HTN, diverticulitis , colon resection 1993, left lower extremity wound, who presented to the ED with hematemesis. She had a CT scan which showed SBO and hydronephrosis. The patient denies any fevers chills chest pain or shortness of breath. She denies diarrhea, palpitations, headache, dizziness, blurred vision, or lower extremity swelling. She denies dysuria or hematuria. she states she drink about 4-5 cans of club soda a day. Upon review of her labs it seems like she has chronic hyponatremia. Highest sodium we have in our system is 135. 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 - Home Medications Home Medications: Ambulatory Orders Budesonide/Formeterol Fumarate [SYMBICORT 160/4.5mcg -] 2 inh PO BID 06/08/17 Cholecalciferol (Vitamin D3) [Vitamin D3] 2,000 unit PO DAILY 06/08/17 Enalapril Maleate 5 mg PO DAILY 06/08/17 Famotidine 20 mg PO BID 06/08/17 Gabapentin [Neurontin -] 100 mg PO Q8H 06/08/17 Metoprolol Succinate 25 mg PO DAILY 06/08/17 Oxycodone HCl 5 mg PO QID 06/08/17 Spironolactone 25 mg PO DAILY 06/08/17 Acetaminophen [Tylenol .Regular Strength -] 650 mg PO Q6H PRN tablet 06/10/17 Albuterol 0.083% Nebulizer Miley [Ventolin 0.083% Nebulizer Soln -] 1 amp NEB Q4H PRN amp 06/10/17 Aspirin [ASA -] 81 mg PO DAILY tab.chew 06/10/17 Bacitracin - [Bacitracin Topical Ointment -] 1 applic TP DAILY tube 06/10/17 Aa/Hydrolyzed Collagen, Whey [Lps 15-30 Liquid] 30 ml PO BID 06/20/17 Ascorbate Calcium [Vitamin C] 500 mg PO DAILY 06/20/17 Bisacodyl [Dulcolax] 10 mg RC DAILY PRN 06/20/17 Bismuth Tribromoph/Petrolatum [Xeroform 5"X9" Gauze Strip] 1 each TP DAILY 06/20 Enoxaparin Sodium [Lovenox] 40 mg SQ DAILY 06/20/17 Magnesium Hydrox 2400MG/30Ml [Milk of Magnesia -] 30 ml PO DAILY PRN 06/20/17 Multivitamin [Poly-Vitamin] 1 each PO DAILY 06/20/17 Nutritional Supplement [Hi-Campbell] 120 ml PO BID 06/20/17 Ondansetron HCl/Pf [Ondansetron 4 mg/2 ml Isecure] 4 mg IM Q8H PRN 06/20/17 Pantoprazole Sodium [Protonix -] 40 mg PO DAILY 06/20/17 Polyethylene Glycol 3350 [Smoothlax] 17 gm PO DAILY 06/20/17 Tiotropium [place] [Spiriva] 1 inh PO DAILY 06/20/17 Zinc Sulfate [Orazinc] 220 mg PO DAILY 06/20/17 Review of Systems - Review of Systems Constitutional: reports: No Symptoms Eyes: reports: No Symptoms HENT: reports: No Symptoms Neck: reports: No Symptoms Cardiovascular: reports: No Symptoms Respiratory: reports: No Symptoms Gastrointestinal: reports: Nausea, Vomiting, Vomiting Blood Genitourinary: reports: No Symptoms Neurological: reports: No Symptoms Endocrine: reports: Increased Thirst Physical Exam Vital Signs: Vital Signs Temperature 98.4 F 06/21/17 06:00 Pulse Rate 112 H 06/21/17 06:00 Respiratory Rate 20 06/21/17 06:00 Blood Pressure 111/49 06/21/17 06:00 O2 Sat by Pulse Oximetry (%) 96 06/20/17 20:00 Constitutional: Yes: No Distress, Calm Eyes: Yes: Other (conjunctival pallor) HENT: Yes: Atraumatic, Other (dry mucous membranes) Neck: Yes: Supple Cardiovascular: Yes: Regular Rate and Rhythm Respiratory: Yes: CTA Bilaterally Gastrointestinal: Yes: Soft. No: Tenderness Edema: No Integumentary: Yes: Other (+skin tenting) Neurological: Yes: Alert Psychiatric: Yes: Alert, Oriented Labs: CBC, BMP 06/21/17 09:38 Imaging - Results Chest X-ray: Report Reviewed, Image Reviewed Cat Scan: Report Reviewed, Image Reviewed Assessment/Plan 86F with multiple medical problems presents to the ED with coffee ground emesis found to have SBO. Patient also with hyponatremia. Problem list: hypovolemic hyponatremia right sided moderate hydronephrosis at UPJ bilateral renal calculi Volume depletion anion gap Metabolic acidosis COPD HTN HLD CAD PVD Afib Diverticulitis LLE wound Spinal stenosis Left carotid artery stenosis Hematemesis SBO Plan: Send urine sodium send urinalysis send urine osmolality send serum osmolality correct anion gap is 16.5 send lactic acid to assess perfusion status and for other sources of acid check urine for ketones to check and see if there is anything else contributing to the acidosis stop 1/2 NS start NS @ 60ml/hr trend BMP Trend CBC will get bladder ultrasound tomorrow consider CT scan chest sodium does not correct and reason for hyponatremia not found Home Meds reviewed Thank you for this consultative opportunity Will follow Case discussed with attending Dr. Nobles.
[2017-06-21 11:22] LABS: URINE APPEARANCE CLEAR; URINE BILIRUBIN NEGATIVE (NEGATIVE); URINE BLOOD NEGATIVE (NEGATIVE); URINE COLOR YELLOW; URINE GLUCOSE (UA) NEGATIVE (NEGATIVE); URINE KETONE 1+ (NEGATIVE); URINE NITRITE NEGATIVE (NEGATIVE); URINE PROTEIN NEGATIVE (NEGATIVE); URINE UROBILINOGEN NEGATIVE mg/dL (0.2-1.0)
[2017-06-21 11:23] LABS: URINE LEUK ESTERASE 3+ (NEGATIVE)
[2017-06-21 11:27] LABS: URINE BACTERIA RARE /hpf (NONE SEEN); URINE HYALINE CAST 12 /lpf; URINE MUCUS RARE
[2017-06-21] MEDS: BUDESONIDE/FORMETEROL FUMARATE 160/4.5 mcg INHALER IH SCH ×2 (11:31→22:19)
[2017-06-21] MEDS: TIOTROPIUM BROMIDE 18 MCG/INH (DEVICE W/ 5 CAPSULES) IH SCH (11:32)
[2017-06-21] MEDS: BACITRACIN 15 GM TUBE TOPICAL OINTMENT TP SCH (11:32)
[2017-06-21] MEDS: NICOTINE 14 MG/24 HOURS TOPICAL PATCH TD SCH (11:33)
--- NOTE | 2017-06-21 12:17 | PN ---
Physical Exam: SUBJECTIVE: Patient seen and examined. She is very thirsty complaining of dry mouth. Her abdomen is non tender, no further vomiting. OBJECTIVE: Vital Signs Period Temp Pulse Resp BP Sys/[place] Pulse Ox Last 24 Hr 97.4 F-98.8 F 56-120 18-24 84-139/44-80 92-100 PE Neuro: alert, awake, cn 2-12 intact HEENT: Dry MM, NGT with dark brown green oupt Pulm: CTA anteriorly CV: s1 s2 rrr no mrg Abd: soft, hypoactive BS, no distention : gee Ext: no le edema, LLE wound dressed Laboratory Results - last 24 hr 06/21/17 06/21/17 06/21/17 02:00 06:30 06:30 WBC 10.3 H RBC 3.61 Hgb 10.7 Hct 32.5 MCV 89.9 MCH 29.5 MCHC 32.8 RDW 24.9 H Plt Count 380 MPV 8.0 Neutrophils % Lymphocytes % Monocytes % Eosinophils % Basophils % Platelet Estimate Platelet Comment Poikilocytosis Anisocytosis Macrocytosis Target Cells PT with INR INR PTT (Actin FS) Sodium 132 L 132 L Potassium 4.8 4.8 Chloride 99 100 Carbon Dioxide 19 L 18 L Anion Gap 14 14 BUN 37 H 37 H Creatinine 1.0 1.1 H Creat Clearance w eGFR 47.32 Random Glucose 111 H 94 Calcium 8.4 L 8.0 L Phosphorus 4.6 Magnesium 2.1 Total Bilirubin 0.6 D AST 26 ALT 33 Alkaline Phosphatase 149 H Total Protein 5.5 L Albumin 2.6 L Urine Color Urine Appearance Urine pH Ur Specific [place] Urine Protein Urine Glucose (UA) Urine Ketones Urine Blood Urine Nitrite Urine Bilirubin Urine Urobilinogen Ur Leukocyte Esterase Urine WBC (Auto) Urine RBC (Auto) Urine Bacteria Hyaline Casts Urine Mucus Blood Type Antibody Screen 06/21/17 06/21/17 06/21/17 06:30 09:38 09:38 WBC 13.0 H RBC 3.69 Hgb 10.8 Hct 33.0 MCV 89.4 MCH 29.3 MCHC 32.7 RDW 25.4 H Plt Count MPV 7.4 L Neutrophils % Lymphocytes % Monocytes % Eosinophils % Basophils % Platelet Estimate Platelet Comment Poikilocytosis Anisocytosis Macrocytosis Target Cells PT with INR INR PTT (Actin FS) Sodium 131 L 132 L Potassium 4.7 5.0 Chloride 100 102 Carbon Dioxide 18 L 17 L Anion Gap 13 13 BUN 38 H 39 H Creatinine 1.0 1.0 Creat Clearance w eGFR Random Glucose 92 98 Calcium 8.0 L 8.0 L Phosphorus Magnesium Total Bilirubin AST ALT Alkaline Phosphatase Total Protein Albumin Urine Color Urine Appearance Urine pH Ur Specific [place] Urine Protein Urine Glucose (UA) Urine Ketones Urine Blood Urine Nitrite Urine Bilirubin Urine Urobilinogen Ur Leukocyte Esterase Urine WBC (Auto) Urine RBC (Auto) Urine Bacteria Hyaline Casts Urine Mucus Blood Type Antibody Screen 06/21/17 11:00 WBC RBC Hgb Hct MCV MCH MCHC RDW Plt Count MPV Neutrophils % Lymphocytes % Monocytes % Eosinophils % Basophils % Platelet Estimate Platelet Comment Poikilocytosis Anisocytosis Macrocytosis Target Cells PT with INR INR PTT (Actin FS) Sodium Potassium Chloride Carbon Dioxide Anion Gap BUN Creatinine Creat Clearance w eGFR Random Glucose Calcium Phosphorus Magnesium Total Bilirubin AST ALT Alkaline Phosphatase Total Protein Albumin Urine Color Yellow Urine Appearance Clear Urine pH 5.0 Ur Specific [place] 1.018 Urine Protein Negative Urine Glucose (UA) Negative Urine Ketones 1+ H Urine Blood Negative Urine Nitrite Negative Urine Bilirubin Negative Urine Urobilinogen Negative Ur Leukocyte Esterase 3+ H Urine WBC (Auto) 20 Urine RBC (Auto) 2 Urine Bacteria Rare Hyaline Casts 12 Urine Mucus Rare Blood Type Antibody Screen Active Medications Generic Name Dose Route Start Last Admin Trade Name Freq PRN Reason Stop Dose Admin Albuterol Sulfate 1 amp 06/20/17 17:06 Ventolin 0.083% Nebulizer Soln - NEB Q4H PRN SHORT OF BREATH/WHEEZING Bacitracin 1 applic 06/21/17 10:00 06/21/17 11:32 Bacitracin - TP 1 applic DAILY MUKUND Administration Benzocaine/Butamben/Tetracaine HCl 1 spray 06/20/17 23:46 06/21/17 11:32 Cetacaine [place] - TP 1 spray Q4H PRN Administration PAIN Budesonide/Formoterol Fumarate 2 puff 06/20/17 22:00 06/21/17 11:31 Symbicort 160/4.5mcg - IH 2 puff BID MUKUND Administration Sodium Chloride 1,000 mls @ 75 mls/hr 06/21/17 00:15 06/21/17 00:15 1/2 Normal Saline IV 75 mls/hr ASDIR MUKUND Administration Nicotine 14 mg 06/21/17 10:00 06/21/17 11:33 Nicoderm Patch - TD Not Given DAILY MUKUND Ondansetron HCl 4 mg 06/21/17 04:00 Zofran Injection IVPUSH Q8H PRN NAUSEA Tiotropium [place] 1 puff 06/21/17 10:00 06/21/17 11:32 Spiriva - IH 1 puff DAILY MUKUND Administration Assessment: 86 year old female with PMHx of spinal stenosis, CHF, CAD, COPD, HTN , diverticulitis, colon resection 1993, left lower extremity wound, coffee ground emesis Plan: 1. Acute SBO - Maintain NGT continuous suction - Serial abdominal xray - Stop protonix gtt - NPO - Continue fluids 2. Hypovolemia hyponatremia - Sodium improved - Fluids changed to NS 60cc/hr - Send urine studies, osmo - Continue fluids 1/2 ns - Further recs per nephrology 3. UTI - UA with + 3 LE - Send urine cx - Start levaquin 500mg now, then 250mg daily - Send lactic acid 4. Metabolic acidosis - UA, lactic acid ordered 3. Upper GI bleed - Rule out - Hgb stable 4.HTN - BP stable - Hold Spironolactone, Enalapril for now, pt npo - Can give Lopressor IV prn 5. CHF - No evidence of acute exacerbation at this time 6. CAD - Can resume ASA in few days 7. COPD - Not in exacerbation - Continue Symbicort - Continue Spiriva 8. Left lower extremity wound - Continue Bacitracin Prophylaxis - Patient has multiple wound on b/l lower extremities, will hold off on TEDs or SCDs and multiple areas of skin breakdown on shins CODE STATUS: FULL CODE Visit type - Emergency Visit Emergency Visit: Yes ED Registration Date: 06/20/17 Care time: The patient presented to the Emergency Department on the above date and was hospitalized for further evaluation of their emergent condition. - New Patient This patient is new to me today: Yes Date on this admission: 06/21/17 - Critical Care Critical Care patient: No
[2017-06-21 12:38] LABS: PLATELET COUNT 332 K/MM3 (134-434)
[2017-06-21] MEDS ORDERED: SODIUM CHLORIDE 1,000 ML IV SCH (12:45)
[2017-06-21] MEDS ORDERED: LEVOFLOXACIN 500 MG IVPB 500 MG/100 ML BAG IVPB ONE (13:15)
[2017-06-21 13:54] LABS: HEMATOCRIT 32.5 % (32.4-45.2); HEMOGLOBIN 10.8 GM/dL (10.7-15.3); MCH 29.6 pg (25.7-33.7); MCHC 33.4 g/dl (32.0-36.0); MEAN CELL VOLUME 88.7 fl (80-96); MEAN PLT VOLUME 7.2 fl (7.5-11.1); PLATELET COUNT 379 K/MM3 (134-434); RBC 3.66 M/mm3 (3.60-5.2); RDW 24.3 % (11.6-15.6); WHITE BLOOD COUNT 10.2 K/mm3 (4.0-10.0)
--- NOTE | 2017-06-21 14:11 | CON.GI ---
Consult - History of Present Illness History of Present Illness: 86 year old female with PMHx of spinal stenosis, CHF, CAD, COPD, HTN, diverticulitis, diverticulosis, s/p colon resection in 1993, left lower extremity wound, presenrted with coffee ground emesis and stable HGb. No BMs for 4 days. Was noted on CT a/p to have distal SBO. The pt reports having chromic constipation and takes MOM every 4 days to have a large BM. There is no prior history of complete, or partial bowel obstruction. Denies weight loss, dysphagia, odynophagia, acid reflux, chronic abdominal pain, or distension. 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 - Home Medications Home Medications: Ambulatory Orders Budesonide/Formeterol Fumarate [SYMBICORT 160/4.5mcg -] 2 inh PO BID 06/08/17 Cholecalciferol (Vitamin D3) [Vitamin D3] 2,000 unit PO DAILY 06/08/17 Enalapril Maleate 5 mg PO DAILY 06/08/17 Famotidine 20 mg PO BID 06/08/17 Gabapentin [Neurontin -] 100 mg PO Q8H 06/08/17 Metoprolol Succinate 25 mg PO DAILY 06/08/17 Oxycodone HCl 5 mg PO QID 06/08/17 Spironolactone 25 mg PO DAILY 06/08/17 Acetaminophen [Tylenol .Regular Strength -] 650 mg PO Q6H PRN tablet 06/10/17 Albuterol 0.083% Nebulizer [place] [Ventolin 0.083% Nebulizer Soln -] 1 amp NEB Q4H PRN amp 06/10/17 Aspirin [ASA -] 81 mg PO DAILY tab.chew 06/10/17 Bacitracin - [Bacitracin Topical Ointment -] 1 applic TP DAILY tube 06/10/17 Aa/Hydrolyzed Collagen, Whey [Lps 15-30 Liquid] 30 ml PO BID 06/20/17 Ascorbate Calcium [Vitamin C] 500 mg PO DAILY 06/20/17 Bisacodyl [Dulcolax] 10 mg RC DAILY PRN 06/20/17 Bismuth Tribromoph/Petrolatum [Xeroform 5"X9" Gauze Strip] 1 each TP DAILY 06/20 Enoxaparin Sodium [Lovenox] 40 mg SQ DAILY 06/20/17 Magnesium Hydrox 2400MG/30Ml [Milk of Magnesia -] 30 ml PO DAILY PRN 06/20/17 Multivitamin [Poly-Vitamin] 1 each PO DAILY 06/20/17 Nutritional Supplement [Hi-Campbell] 120 ml PO BID 06/20/17 Ondansetron HCl/Pf [Ondansetron 4 mg/2 ml Isecure] 4 mg IM Q8H PRN 06/20/17 Pantoprazole Sodium [Protonix -] 40 mg PO DAILY 06/20/17 Polyethylene Glycol 3350 [Smoothlax] 17 gm PO DAILY 06/20/17 Tiotropium [place] [Spiriva] 1 inh PO DAILY 06/20/17 Zinc Sulfate [Orazinc] 220 mg PO DAILY 06/20/17 Family Disease History - Family Disease History Family History: Unremarkable (non-contributory) Review of Systems Findings/Remarks: as per HPI, H&P Physical Exam-GI Vital Signs: Vital Signs Temperature 98.2 F 06/21/17 10:00 Pulse Rate 111 H 06/21/17 10:00 Respiratory Rate 18 06/21/17 10:00 Blood Pressure 98/54 06/21/17 10:00 O2 Sat by Pulse Oximetry (%) 96 06/20/17 20:00 Constitutional: Yes: Well Nourished, No Distress, Calm Eyes: Yes: Conjunctiva Clear HENT: Yes: Atraumatic Neck: Yes: Supple Cardiovascular: Yes: Regular Rate and Rhythm Respiratory: Yes: Regular Gastrointestinal Inspection: No: Ascites, Distention ...Palpate: Yes: Soft, Other (NGT to suction, bile-like aspirate ~ 700 cc). No : Firm/Rigid, Guarding Extremities: Yes: Other (b/l hill ulcers) Neurological: Yes: Alert Labs: CBC, BMP 06/21/17 13:36 INR, PTT INR 1.18 (0.82-1.09) H 06/20/17 15:34 CBCD WBC 10.2 K/mm3 (4.0-10.0) H 06/21/17 13:36 RBC 3.66 M/mm3 (3.60-5.2) 06/21/17 13:36 Hgb 10.8 GM/dL (10.7-15.3) 06/21/17 13:36 Hct 32.5 % (32.4-45.2) 06/21/17 13:36 MCV 88.7 fl (80-96) 06/21/17 13:36 MCHC 33.4 g/dl (32.0-36.0) 06/21/17 13:36 RDW 24.3 % (11.6-15.6) H 06/21/17 13:36 Plt Count 379 K/MM3 (134-434) 06/21/17 13:36 MPV 7.2 fl (7.5-11.1) L 06/21/17 13:36 CMP Sodium 135 mmol/L (136-145) L 06/21/17 13:36 Potassium 4.6 mmol/L (3.5-5.1) 06/21/17 13:36 Chloride 104 mmol/L (98-107) 06/21/17 13:36 Carbon Dioxide 18 mmol/L (21-32) L 06/21/17 13:36 Anion Gap 13 (8-16) 06/21/17 13:36 BUN 38 mg/dL (7-18) H 06/21/17 13:36 Creatinine 0.9 mg/dL (0.55-1.02) 06/21/17 13:36 Creat Clearance w eGFR 47.32 (>60) 06/21/17 06:30 Calcium 8.2 mg/dL (8.5-10.1) L 06/21/17 13:36 Total Bilirubin 0.6 mg/dL (0.2-1.0) D 06/21/17 06:30 AST 26 U/L (15-37) 06/21/17 06:30 ALT 33 U/L (12-78) 06/21/17 06:30 Alkaline Phosphatase 149 U/L (45-117) H 06/21/17 06:30 Total Protein 5.5 g/dl (6.4-8.2) L 06/21/17 06:30 Albumin 2.6 g/dl (3.4-5.0) L 06/21/17 06:30 Imaging - Results Cat Scan: Report Reviewed Assessment/Plan An 86 yof with SBO on imaging. Non-toxic, or in distress on exam. Non-surgical abdomen on exam. NGT draining bile-like, dark fluid. HGb stable. Agree with current management Monitor electrolytes follow up imaging (AXR) in am Sx on the case Will monitor
--- NOTE | 2017-06-21 14:13 | EKG ---
Test Reason : Blood Pressure : / mmHG Vent. Rate : 113 BPM Atrial Rate : 113 BPM P-R Int : 180 ms QRS Dur : 084 ms QT Int : 340 ms P-R-T Axes : 000 -05 070 degrees QTc Int : 466 ms SINUS TACHYCARDIA WITH PREMATURE SUPRAVENTRICULAR COMPLEXES ANTEROSEPTAL INFARCT (CITED ON OR BEFORE 07-APR-2017) ABNORMAL ECG WHEN COMPARED WITH ECG OF 08-JUN-2017 11:41, NO SIGNIFICANT CHANGE WAS FOUND Confirmed by MD Lamin, Jake ([id number]) on 06/21/2017 2:13:07 PM Referred By: Confirmed By:Jake Kimble MD
[2017-06-21 14:20] LABS: ANION GAP 13 (8-16); BLOOD UREA NITROGEN 38 mg/dL (7-18); CALCIUM 8.2 mg/dL (8.5-10.1); CHLORIDE 104 mmol/L (98-107); CO2 18 mmol/L (21-32); CREATININE 0.9 mg/dL (0.55-1.02); GLUCOSE,RANDOM 104 mg/dL (74-106); POTASSIUM 4.6 mmol/L (3.5-5.1); SODIUM 135 mmol/L (136-145)
--- NOTE | 2017-06-21 15:05 | EKG ---
Test Reason : Blood Pressure : / mmHG Vent. Rate : 112 BPM Atrial Rate : 112 BPM P-R Int : 180 ms QRS Dur : 086 ms QT Int : 340 ms P-R-T Axes : 025 000 143 degrees QTc Int : 464 ms SINUS TACHYCARDIA WITH PREMATURE ATRIAL COMPLEXES SEPTAL INFARCT (CITED ON OR BEFORE 07-APR-2017) ABNORMAL ECG WHEN COMPARED WITH ECG OF 20-JUN-2017 16:27, NONSPECIFIC T WAVE ABNORMALITY, WORSE IN LATERAL LEADS Confirmed by MD MIKE, ANABELLE ([id number]) on 06/21/2017 3:04:59 PM Referred By: CASSIE PARISH DR Confirmed By:ANABELLE MCKEON MD
[2017-06-21] MEDS ORDERED: SODIUM CHLORIDE 500 ML IV STA (15:20)
--- NOTE | 2017-06-21 15:28 | PN ---
Teaching Attending Note Name of Resident: Gonzales Mobley (Nephrology) ATTENDING PHYSICIAN STATEMENT I saw and evaluated the patient. I reviewed the resident's note and discussed the case with the resident. I agree with the resident's findings and plan as documented. SUBJECTIVE: This is a 86 year old woman with PMhx of COPD, Former smoker, Afib, HF, PVD, Hypertension who presented with N/V and hematemesis and found to have possible SBO and found to have hyponatremia. On review of prior labs pt had been chronically hyponatremic in the past but not as low as it was on this admission. Pt was started on NS and had improvement in serum na levels. No confusion, lethargy, fever, chills, N/V/D. PMhx: As above Allergies: NKDA Family Hx: NC social hx: + smoker ROS: as per HPI Home Medications Medication Instructions Recorded Budesonide/Formeterol Fumarate 2 inh PO BID 06/08/17 [SYMBICORT 160/4.5mcg -] Cholecalciferol (Vitamin D3) 2,000 unit PO DAILY 06/08/17 [Vitamin D3] Enalapril Maleate 5 mg PO DAILY 06/08/17 Famotidine 20 mg PO BID 06/08/17 Gabapentin [Neurontin -] 100 mg PO Q8H 06/08/17 Metoprolol Succinate 25 mg PO DAILY 06/08/17 Oxycodone HCl 5 mg PO QID 06/08/17 Spironolactone 25 mg PO DAILY 06/08/17 Acetaminophen [Tylenol .Regular 650 mg PO Q6H PRN tablet 06/10/17 Strength -] Albuterol 0.083% Nebulizer [place] 1 amp NEB Q4H PRN amp 06/10/17 [Ventolin 0.083% Nebulizer Soln -] Aspirin [ASA -] 81 mg PO DAILY tab.chew 06/10/17 Bacitracin - [Bacitracin Topical 1 applic TP DAILY tube 06/10/17 Ointment -] Aa/Hydrolyzed Collagen, Whey [Lps 30 ml PO BID 06/20/17 15-30 Liquid] Ascorbate Calcium [Vitamin C] 500 mg PO DAILY 06/20/17 Bisacodyl [Dulcolax] 10 mg RC DAILY PRN 06/20/17 Bismuth Tribromoph/Petrolatum 1 each TP DAILY 06/20/17 [Xeroform 5"X9" Gauze Strip] Enoxaparin Sodium [Lovenox] 40 mg SQ DAILY 06/20/17 Magnesium Hydrox 2400MG/30Ml [Milk 30 ml PO DAILY PRN 06/20/17 of Magnesia -] Multivitamin [Poly-Vitamin] 1 each PO DAILY 06/20/17 Nutritional Supplement [Hi-[place]bell] 120 ml PO BID 06/20/17 Ondansetron HCl/Pf [Ondansetron 4 4 mg IM Q8H PRN 06/20/17 mg/2 ml Isecure] Pantoprazole Sodium [Protonix -] 40 mg PO DAILY 06/20/17 Polyethylene Glycol 3350 17 gm PO DAILY 06/20/17 [Smoothlax] Tiotropium [place] [Spiriva] 1 inh PO DAILY 06/20/17 Zinc Sulfate [Orazinc] 220 mg PO DAILY 06/20/17 OBJECTIVE: Vital Signs Temperature 97.1 F L 06/21/17 14:14 Pulse Rate 115 H 06/21/17 14:14 Respiratory Rate 18 06/21/17 14:14 Blood Pressure 85/45 06/21/17 14:14 O2 Sat by Pulse Oximetry (%) 96 06/20/17 20:00 NAD awake and alert RRR Dry MM +skin tenting + abd tenderness, mild distension No LE edema CBC, BMP 06/21/17 13:36 06/21/17 13:36 Current Medications Albuterol Sulfate (Ventolin 0.083% Nebulizer Soln -) 1 amp NEB Q4H PRN PRN Reason: SHORT OF BREATH/WHEEZING Bacitracin (Bacitracin -) 1 applic TP DAILY [facility] Last Admin: 06/21/17 11:32 Dose: 1 applic Benzocaine/Butamben/Tetracaine HCl (Cetacaine [place] -) 1 spray TP Q4H PRN PRN Reason: PAIN Last Admin: 06/21/17 11:32 Dose: 1 spray Budesonide/Formoterol Fumarate (Symbicort 160/4.5mcg -) 2 puff IH BID [facility] Last Admin: 06/21/17 11:31 Dose: 2 puff Levofloxacin (Levaquin 250 Mg Premixed Ivpb -) 250 mg in 50 mls @ 50 mls/hr IVPB DAILY [facility] Sodium Chloride (Normal Saline -) 1,000 mls @ 83 mls/hr IV ASDIR [facility]D Sodium Chloride (Normal Saline -) 500 mls @ 500 mls/hr IV ASDIR STA Stop: 06/21/17 16:19 Nicotine (Nicoderm Patch -) 14 mg TD DAILY [facility] Last Admin: 06/21/17 11:33 Dose: Not Given Ondansetron HCl (Zofran Injection) 4 mg IVPUSH Q8H PRN PRN Reason: NAUSEA Tiotropium [place] (Spiriva -) 1 puff IH DAILY [facility] Last Admin: 06/21/17 11:32 Dose: 1 puff ASSESSMENT AND PLAN: 86 year old woman with PMhx of COPD, Former smoker, Afib, HF, PVD, Hypertension who presented with N/V and hematemesis and found to have possible SBO and found to have hyponatremia. #Hypovolemic Hyponatremia in setting of vomiting pt with clinical signs of volume depletion with skin tenting, dry MM, low BP and high BUN/Cr ratio Check serum osmolarity Check Urine Na and Urine Osm continue isotonic saline at this time trend na Q12h no indication for 3% saline #Anion gap metabolic acidosis ? etiology check lactic acid levels, check UA for ketones Trend Bicarb level Q12h no indication for bicarb supplementation at this time #Hydronephrosis ? etiology and significance as pt has preserved renal function would check Renal US in 24 hours #N/V/SBO on wall suction via NGT GI/Surgery follow up Thank you Johnny Nobles DO
[2017-06-21] MEDS: MORPHINE SULFATE 10 MG/1 ML *VIAL IVPUSH PRN ×2 (16:04→23:50)
[2017-06-21] MEDS: SODIUM CHLORIDE 1,000 ML IV SCH (16:04)
[2017-06-21 18:03] LABS: ANION GAP 14 (8-16); BLOOD UREA NITROGEN 39 mg/dL (7-18); CALCIUM 8.2 mg/dL (8.5-10.1); CHLORIDE 103 mmol/L (98-107); CO2 18 mmol/L (21-32); GLUCOSE,RANDOM 93 mg/dL (74-106); POTASSIUM 4.5 mmol/L (3.5-5.1); SODIUM 135 mmol/L (136-145)
[2017-06-22] MEDS ORDERED: MORPHINE SULFATE 10 MG/1 ML *VIAL IVPUSH ONE (04:20)
[2017-06-22] MEDS: SODIUM CHLORIDE 1,000 ML IV SCH ×2 (04:35→16:13)
[2017-06-22 07:28] LABS: BASO % 0.3 % (0-2.0); EOS % 1.6 % (0-4.5); HEMATOCRIT 27.8 % (32.4-45.2); HEMOGLOBIN 9.1 GM/dL (10.7-15.3); LYMPH % 12.4 % (8-40); MCH 29.5 pg (25.7-33.7); MCHC 32.7 g/dl (32.0-36.0); MEAN CELL VOLUME 90.2 fl (80-96); MEAN PLT VOLUME 7.6 fl (7.5-11.1); MONO % 13.4 % (3.8-10.2); NEUT % 72.3 % (42.8-82.8); PLATELET COUNT 319 K/MM3 (134-434); RBC 3.08 M/mm3 (3.60-5.2); RDW 24.4 % (11.6-15.6); WHITE BLOOD COUNT 6.2 K/mm3 (4.0-10.0)
[2017-06-22 07:50] LABS: CHLORIDE 108 mmol/L (98-107); POTASSIUM 4.1 mmol/L (3.5-5.1); SODIUM 139 mmol/L (136-145)
[2017-06-22 08:00] LABS: ANION GAP 14 (8-16); BLOOD UREA NITROGEN 31 mg/dL (7-18); CALCIUM 8.4 mg/dL (8.5-10.1); CO2 17 mmol/L (21-32); CREATININE 0.7 mg/dL (0.55-1.02); GLUCOSE,RANDOM 85 mg/dL (74-106)
--- NOTE | 2017-06-22 08:36 | PN ---
Progress Note, Physician History of Present Illness: Clinically the same. NAD, pain-free. ~ 600cc in suction container - Current Medication List Current Medications: Active Medications Albuterol Sulfate (Ventolin 0.083% Nebulizer Soln -) 1 amp NEB Q4H PRN PRN Reason: SHORT OF BREATH/WHEEZING Bacitracin (Bacitracin -) 1 applic TP DAILY [facility] Last Admin: 06/21/17 11:32 Dose: 1 applic Benzocaine/Butamben/Tetracaine HCl (Cetacaine [place] -) 1 spray TP Q4H PRN PRN Reason: PAIN Last Admin: 06/21/17 11:32 Dose: 1 spray Budesonide/Formoterol Fumarate (Symbicort 160/4.5mcg -) 2 puff IH BID [facility] Last Admin: 06/21/17 22:19 Dose: 2 puff Levofloxacin (Levaquin 250 Mg Premixed Ivpb -) 250 mg in 50 mls @ 50 mls/hr IVPB DAILY [facility] Sodium Chloride (Normal Saline -) 1,000 mls @ 83 mls/hr IV ASDIR [facility] Last Admin: 06/22/17 04:35 Dose: 83 mls/hr Morphine Sulfate (Morphine Injection -) 2 mg IVPUSH Q6H PRN PRN Reason: PAIN LEVEL 4 - 6 Last Admin: 06/21/17 23:50 Dose: 2 mg Nicotine (Nicoderm Patch -) 14 mg TD DAILY [facility] Last Admin: 06/21/17 11:33 Dose: Not Given Ondansetron HCl (Zofran Injection) 4 mg IVPUSH Q8H PRN PRN Reason: NAUSEA Tiotropium [place] (Spiriva -) 1 puff IH DAILY [facility] Last Admin: 06/21/17 11:32 Dose: 1 puff - Objective Vital Signs: Vital Signs Temperature 98.4 F 06/22/17 06:00 Pulse Rate 108 H 06/22/17 06:00 Respiratory Rate 20 06/22/17 06:00 Blood Pressure 91/44 06/22/17 06:00 O2 Sat by Pulse Oximetry (%) 92 L 06/21/17 21:00 Constitutional: Yes: No Distress, Calm Eyes: Yes: Conjunctiva Clear HENT: Yes: Atraumatic Neck: Yes: Supple Cardiovascular: Yes: Regular Rate and Rhythm Respiratory: Yes: Regular Gastrointestinal: Yes: Soft, Other (NGT to int. suction). No: Distention, Melena, Rectal Bleeding, Tenderness, Vomiting Neurological: Yes: Alert, Oriented Labs: CBC, BMP 06/22/17 05:41 INR, PTT INR 1.18 (0.82-1.09) H 06/20/17 15:34 Laboratory Last Values WBC 6.2 K/mm3 (4.0-10.0) D 06/22/17 05:41 RBC 3.08 M/mm3 (3.60-5.2) L 06/22/17 05:41 Hgb 9.1 GM/dL (10.7-15.3) L D 06/22/17 05:41 Hct 27.8 % (32.4-45.2) L 06/22/17 05:41 MCV 90.2 fl (80-96) 06/22/17 05:41 MCH 29.5 pg (25.7-33.7) 06/22/17 05:41 MCHC 32.7 g/dl (32.0-36.0) 06/22/17 05:41 RDW 24.4 % (11.6-15.6) H 06/22/17 05:41 Plt Count 319 K/MM3 (134-434) 06/22/17 05:41 MPV 7.6 fl (7.5-11.1) 06/22/17 05:41 Neutrophils % 72.3 % (42.8-82.8) 06/22/17 05:41 Lymphocytes % 12.4 % (8-40) D 06/22/17 05:41 Monocytes % 13.4 % (3.8-10.2) H D 06/22/17 05:41 Eosinophils % 1.6 % (0-4.5) D 06/22/17 05:41 Basophils % 0.3 % (0-2.0) 06/22/17 05:41 Manual Slide Review Yes 06/21/17 09:38 Platelet Estimate Adequate 06/20/17 15:34 Platelet Comment No clumping noted 06/21/17 09:38 Poikilocytosis 1+ 06/20/17 15:34 Anisocytosis 2+ 06/20/17 15:34 Macrocytosis 1+ 06/20/17 15:34 Target Cells 1+ 06/20/17 15:34 PT with INR 13.30 SEC (9.98-11.88) H 06/20/17 15:34 INR 1.18 (0.82-1.09) H 06/20/17 15:34 PTT (Actin FS) 36.2 SECONDS (26.9-34.4) H 06/20/17 15:34 Sodium 135 mmol/L (136-145) L 06/21/17 16:00 Potassium 4.5 mmol/L (3.5-5.1) 06/21/17 16:00 Chloride 103 mmol/L (98-107) 06/21/17 16:00 Carbon Dioxide 18 mmol/L (21-32) L 06/21/17 16:00 Anion Gap 14 (8-16) 06/21/17 16:00 BUN 39 mg/dL (7-18) H 06/21/17 16:00 Creatinine 1.0 mg/dL (0.55-1.02) 06/21/17 16:00 Creat Clearance w eGFR 47.32 (>60) 06/21/17 06:30 Random Glucose 93 mg/dL (74-106) 06/21/17 16:00 Serum Osmolality 281 mosm/kg (278-305) 06/21/17 09:38 Lactic Acid 1.2 mmol/L (0.0-2.0) 06/21/17 12:00 Calcium 8.2 mg/dL (8.5-10.1) L 06/21/17 16:00 Phosphorus 4.6 mg/dL (2.5-4.9) 06/21/17 06:30 Magnesium 2.1 mg/dL (1.8-2.4) 06/21/17 06:30 Total Bilirubin 0.6 mg/dL (0.2-1.0) D 06/21/17 06:30 AST 26 U/L (15-37) 06/21/17 06:30 ALT 33 U/L (12-78) 06/21/17 06:30 Alkaline Phosphatase 149 U/L (45-117) H 06/21/17 06:30 Total Protein 5.5 g/dl (6.4-8.2) L 06/21/17 06:30 Albumin 2.6 g/dl (3.4-5.0) L 06/21/17 06:30 Urine Color Yellow 06/21/17 11:00 Urine Appearance Clear 06/21/17 11:00 Urine pH 5.0 (5.0-8.0) 06/21/17 11:00 Ur Specific [place] 1.018 (1.001-1.035) 06/21/17 11:00 Urine Protein Negative (NEGATIVE) 06/21/17 11:00 Urine Glucose (UA) Negative (NEGATIVE) 06/21/17 11:00 Urine Ketones 1+ (NEGATIVE) H 06/21/17 11:00 Urine Blood Negative (NEGATIVE) 06/21/17 11:00 Urine Nitrite Negative (NEGATIVE) 06/21/17 11:00 Urine Bilirubin Negative (NEGATIVE) 06/21/17 11:00 Urine Urobilinogen Negative mg/dL (0.2-1.0) 06/21/17 11:00 Ur Leukocyte Esterase 3+ (NEGATIVE) H 06/21/17 11:00 Urine WBC (Auto) 20 /hpf (3-5) 06/21/17 11:00 Urine RBC (Auto) 2 /hpf (0-3) 06/21/17 11:00 Urine Bacteria Rare /hpf (NONE SEEN) 06/21/17 11:00 Hyaline Casts 12 /lpf 06/21/17 11:00 Urine Mucus Rare 06/21/17 11:00 Urine Osmolality 520 mosm/kg (300-900) 06/21/17 11:00 Ur Random Sodium < 5 MMOL/L 06/21/17 11:00 Blood Type O POSITIVE 06/20/17 15:34 Antibody Screen Negative 06/20/17 15:34 Problem List - Problems (1) Bowel obstruction Code(s): K56.609 - UNSP INTESTNL OBST, UNSP TO PARTIAL VERSUS COMPLETE OBST Assessment/Plan An 86 yof with SBO on imaging. Non-toxic, or in distress on exam. Non-surgical abdomen on exam. NGT draining bile-like, dark fluid. HGb stable. Monitor electrolytes follow up imaging results this am Sx on the case Will monitor
--- NOTE | 2017-06-22 09:34 | PN ---
Progress Note (short form) - Note Progress Note: 86 yo female admitted with possible distal SBO. Has a h/o chronic constipation for which she states she takes MOM every 4 days. This morning, patient just returned from having her AXR. States she is passing flatus. Hasn't had a bm yet. Denies n/v/f/c, CP or SOB. Last Vital Signs Temp Pulse Resp BP Pulse Ox 98.4 F 108 H 20 91/44 92 L 06/22/17 06:00 06/22/17 06:00 06/22/17 06:00 06/22/17 06:00 06/21/17 21:00 CBC, BMP 06/22/17 05:41 06/22/17 05:41 Output 06/21/17 06/21/17 06/21/17 06:44 19:00 23:59 NGT 800 400 200 Gen: alert. nad ENT: ngt on lwcs (output as above) Abd: soft. nt. nd. Hypoactive bowel sounds auscultated in all quadrants. : gee to gravity (> 30mL/hr) LE: SCDs bilat Problem List - Problems (1) Bowel obstruction Assessment/Plan: Awaiting official results of AXR NGT placed to gravity and will check residuals in [address] back on suction if patient develops nausea. Serial abd exams Monitor H/H GI / DVT ppx Cont medical management Above plan discussed with Dr. Coffman and agrees. Code(s): K56.609 - UNSP INTESTNL OBST, UNSP TO PARTIAL VERSUS COMPLETE OBST (2) Constipation Code(s): K59.00 - CONSTIPATION, UNSPECIFIED
--- NOTE | 2017-06-22 09:55 | PN ---
Physical Exam: SUBJECTIVE: Patient seen and examined. She denies abdominal pain, vomiting. She is very [age] and complaints of dry mouth. States she has chronic pain and usually takes oxycodone. OBJECTIVE: Vital Signs Period Temp Pulse Resp BP Sys/[place] Pulse Ox Last 24 Hr 97.1 F-98.6 F 102-115 18-20 85-115/44-73 92 PE Neuro: alert, awake, cn 2-12 intact HEENT: Dry MM, NGT Pulm: CTA anteriorly CV: s1 s2 rrr no mrg Abd: soft, hypoactive BS, no distention or tenderness : gee - clear yellow urine Ext: no le edema, LLE wound dressed Laboratory Results - last 24 hr 06/21/17 06/22/17 06/22/17 16:00 05:41 05:41 WBC 6.2 D RBC 3.08 L Hgb 9.1 L D Hct 27.8 L MCV 90.2 MCH 29.5 MCHC 32.7 RDW 24.4 H Plt Count 319 MPV 7.6 Neutrophils % 72.3 Lymphocytes % 12.4 D Monocytes % 13.4 H D Eosinophils % 1.6 D Basophils % 0.3 Manual Slide Review Platelet Comment Sodium 135 L 139 Potassium 4.5 4.1 Chloride 103 108 H Carbon Dioxide 18 L 17 L Anion Gap 14 14 BUN 39 H 31 H Creatinine 1.0 0.7 Random Glucose 93 85 Serum Osmolality Lactic Acid Calcium 8.2 L 8.4 L Urine Color Urine Appearance Urine pH Ur Specific [place] Urine Protein Urine Glucose (UA) Urine Ketones Urine Blood Urine Nitrite Urine Bilirubin Urine Urobilinogen Ur Leukocyte Esterase Urine WBC (Auto) Urine RBC (Auto) Urine Bacteria Hyaline Casts Urine Mucus Urine Osmolality Ur Random Sodium Active Medications Generic Name Dose Route Start Last Admin Trade Name Freq PRN Reason Stop Dose Admin Albuterol Sulfate 1 amp 06/20/17 17:06 Ventolin 0.083% Nebulizer Soln - NEB Q4H PRN SHORT OF BREATH/WHEEZING Bacitracin 1 applic 06/21/17 10:00 06/21/17 11:32 Bacitracin - TP 1 applic DAILY [facility]UKUND Administration Benzocaine/Butamben/Tetracaine HCl 1 spray 06/20/17 23:46 06/21/17 11:32 Cetacaine [place] - TP 1 spray Q4H PRN Administration PAIN Budesonide/Formoterol Fumarate 2 puff 06/20/17 22:00 06/21/17 22:19 Symbicort 160/4.5mcg - IH 2 puff BID MUKUND Administration Levofloxacin 250 mg in 50 mls @ 50 mls/hr 06/22/17 10:00 Levaquin 250 Mg Premixed Ivpb - IVPB DAILY [facility] Sodium Chloride 1,000 mls @ 83 mls/hr 06/21/17 15:20 06/22/17 04:35 Normal Saline - IV 83 mls/hr ASDIR M[facility]UND Administration Morphine Sulfate 2 mg 06/21/17 15:41 06/21/17 23:50 Morphine Injection - IVPUSH 2 mg Q6H PRN Administration PAIN LEVEL 4 - 6 Nicotine 14 mg 06/21/17 10:00 06/21/17 11:33 Nicoderm Patch - TD Not Given DAILY [facility] Ondansetron HCl 4 mg 06/21/17 04:00 Zofran Injection IVPUSH Q8H PRN NAUSEA Tiotropium [place] 1 puff 06/21/17 10:00 06/21/17 11:32 Spiriva - IH 1 puff DAILY [facility] Administration Assessment: 86 year old female with PMHx of spinal stenosis, CHF, CAD, COPD, HTN , diverticulitis, colon resection 1993, left lower extremity wound, coffee ground emesis Plan: 1. Acute SBO - Maintain NGT to gravity q4 residual check - Awaiting final read on AM abd xray - Continue fluids 2. Hypovolemia hyponatremia - Resolved - Continue NS 83cc/hr 3. UTI - Continue levaquin (day 2) renal dose 4. ? Urinary retention - Remove gee, trial void, pt does not have indwelling 5. Metabolic acidosis - Work up per renal - Lactic acid wnl 6. Upper GI bleed - Hgb mild decrease - Trend, transfuse hgb <7 7. HTN - Hypotension resolved with fluid bolus - Hold Spironolactone, Enalapril for now, pt npo and low bp - Can give Lopressor IV prn 8. CHF - No evidence of acute exacerbation at this time 9. CAD - Can resume ASA in few days 10. COPD - Not in exacerbation - Continue Symbicort - Continue Spiriva 11. Left lower extremity wound - Continue Bacitracin 12. Prophylaxis - Patient has multiple wound on b/l lower extremities, will hold off on TEDs or SCDs and multiple areas of skin breakdown on shins - PT: pt reports was receving PT at rehab with improved, she was able to stand with assistance, however no meaningful ambulation, L leg > R leg 13. Smoking - Nicotine patch CODE STATUS: FULL CODE Visit type - Emergency Visit Emergency Visit: Yes ED Registration Date: 06/20/17 Care time: The patient presented to the Emergency Department on the above date and was hospitalized for further evaluation of their emergent condition. - New Patient This patient is new to me today: No - Critical Care Critical Care patient: No
[2017-06-22] MEDS: BUDESONIDE/FORMETEROL FUMARATE 160/4.5 mcg INHALER IH SCH ×2 (09:58→21:31)
[2017-06-22] MEDS: TIOTROPIUM BROMIDE 18 MCG/INH (DEVICE W/ 5 CAPSULES) IH SCH (10:01)
[2017-06-22] MEDS: LEVOFLOXACIN 250 MG IVPB 250 MG/50 ML MG IVPB SCH (10:01)
[2017-06-22] MEDS: NICOTINE 14 MG/24 HOURS TOPICAL PATCH TD SCH (10:08)
[2017-06-22] MEDS: MORPHINE SULFATE 10 MG/1 ML *VIAL IVPUSH PRN ×3 (11:08→23:34)
--- NOTE | 2017-06-22 13:26 | PN ---
Progress Note (short form) - Note Progress Note: Renal follow up for Hyponatremia Pt seen and examined at the bedside no acute complaints no confusion, lethargy or seizures passing gas no abd pain NGT in place Vital Signs Temperature 97.8 F 06/22/17 10:00 Pulse Rate 98 H 06/22/17 10:00 Respiratory Rate 18 06/22/17 10:00 Blood Pressure 120/71 06/22/17 10:00 O2 Sat by Pulse Oximetry (%) 96 06/22/17 09:00 Intake & Output 06/19/17 06/20/17 06/21/17 06/22/17 23:59 23:59 23:59 23:59 Intake Total 590 2299 Output Total 2825 200 Balance 590 -526 -200 Weight 58.06 kg NAD RRR CTA no LE edema CBC, BMP 06/22/17 05:41 06/22/17 05:41 Laboratory Tests 06/22/17 05:41 Calcium 8.4 L Current Medications Albuterol Sulfate (Ventolin 0.083% Nebulizer Soln -) 1 amp NEB Q4H PRN PRN Reason: SHORT OF BREATH/WHEEZING Last Admin: 06/22/17 11:51 Dose: 1 amp Bacitracin (Bacitracin -) 1 applic TP DAILY [facility] Last Admin: 06/21/17 11:32 Dose: 1 applic Benzocaine/Butamben/Tetracaine HCl (Cetacaine [place] -) 1 spray TP Q4H PRN PRN Reason: PAIN Last Admin: 06/21/17 11:32 Dose: 1 spray Budesonide/Formoterol Fumarate (Symbicort 160/4.5mcg -) 2 puff IH BID [facility] Last Admin: 06/22/17 09:58 Dose: 2 puff Levofloxacin (Levaquin 250 Mg Premixed Ivpb -) 250 mg in 50 mls @ 50 mls/hr IVPB DAILY [facility] Last Admin: 06/22/17 10:01 Dose: 50 mls/hr Sodium Chloride (Normal Saline -) 1,000 mls @ 83 mls/hr IV ASDIR [facility] Last Admin: 06/22/17 04:35 Dose: 83 mls/hr Morphine Sulfate (Morphine Injection -) 2 mg IVPUSH Q6H PRN PRN Reason: PAIN LEVEL 4 - 6 Last Admin: 06/22/17 11:08 Dose: 2 mg Nicotine (Nicoderm Patch -) 14 mg TD DAILY [facility] Last Admin: 06/22/17 10:08 Dose: Not Given Ondansetron HCl (Zofran Injection) 4 mg IVPUSH Q8H PRN PRN Reason: NAUSEA Tiotropium [place] (Spiriva -) 1 puff IH DAILY [facility] Last Admin: 06/22/17 10:01 Dose: 1 puff 86 year old woman with PMhx of COPD, Former smoker, Afib, HF, PVD, Hypertension who presented with N/V and hematemesis and found to have possible SBO and found to have hyponatremia. #Hypovolemic Hyponatremia in setting of vomiting serum Na now improved to WNL continue isotonic saline as long as pt is NPO Ternd Na daily #Anion gap + non gap metabolic acidosis Lactic acid is WNL No ketones seen on UA Trend for now #Hydronephrosis repeat US of kidney #N/V/SBO on wall suction via NGT GI/Surgery follow up Thank you Johnny Nobles DO
[2017-06-22] MEDS: BACITRACIN 15 GM TUBE TOPICAL OINTMENT TP SCH (16:14)
[2017-06-22] MEDS ORDERED: PT OWN MED DRAWER 7, Y5N ONE (21:25)
[2017-06-23] MEDS: SODIUM CHLORIDE 1,000 ML IV SCH ×2 (06:54→16:30)
[2017-06-23] MEDS: MORPHINE SULFATE 10 MG/1 ML *VIAL IVPUSH PRN ×3 (06:54→21:37)
--- NOTE | 2017-06-23 07:54 | PN ---
Progress Note, Physician History of Present Illness: NGT out. comfortable. Requires [place] - Current Medication List Current Medications: Active Medications Albuterol Sulfate (Ventolin 0.083% Nebulizer Soln -) 1 amp NEB Q4H PRN PRN Reason: SHORT OF BREATH/WHEEZING Last Admin: 06/22/17 11:51 Dose: 1 amp Bacitracin (Bacitracin -) 1 applic TP DAILY [facility] Last Admin: 06/22/17 16:14 Dose: 1 applic Benzocaine/Butamben/Tetracaine HCl (Cetacaine [place] -) 1 spray TP Q4H PRN PRN Reason: PAIN Last Admin: 06/21/17 11:32 Dose: 1 spray Budesonide/Formoterol Fumarate (Symbicort 160/4.5mcg -) 2 puff IH BID [facility] Last Admin: 06/22/17 21:31 Dose: 2 puff Levofloxacin (Levaquin 250 Mg Premixed Ivpb -) 250 mg in 50 mls @ 50 mls/hr IVPB DAILY [facility] Last Admin: 06/22/17 10:01 Dose: 50 mls/hr Sodium Chloride (Normal Saline -) 1,000 mls @ 83 mls/hr IV ASDIR [facility] Last Admin: 06/23/17 06:54 Dose: 83 mls/hr Morphine Sulfate (Morphine Injection -) 2 mg IVPUSH Q6H PRN PRN Reason: PAIN LEVEL 4 - 6 Last Admin: 06/23/17 06:54 Dose: 2 mg Nicotine (Nicoderm Patch -) 14 mg TD DAILY [facility] Last Admin: 06/22/17 10:08 Dose: Not Given Ondansetron HCl (Zofran Injection) 4 mg IVPUSH Q8H PRN PRN Reason: NAUSEA Tiotropium [place] (Spiriva -) 1 puff IH DAILY [facility] Last Admin: 06/22/17 10:01 Dose: 1 puff - Objective Vital Signs: Vital Signs Temperature 97.7 F 06/23/17 06:00 Pulse Rate 99 H 06/23/17 06:00 Respiratory Rate 20 06/23/17 06:00 Blood Pressure 116/57 06/23/17 06:00 O2 Sat by Pulse Oximetry (%) 95 06/22/17 21:00 Constitutional: Yes: No Distress, Calm Gastrointestinal: Yes: Soft. No: Distention, Tenderness, Vomiting Labs: INR, PTT INR 1.18 (0.82-1.09) H 06/20/17 15:34 CBCD WBC 6.2 K/mm3 (4.0-10.0) D 06/22/17 05:41 RBC 3.08 M/mm3 (3.60-5.2) L 06/22/17 05:41 Hgb 9.1 GM/dL (10.7-15.3) L D 06/22/17 05:41 Hct 27.8 % (32.4-45.2) L 06/22/17 05:41 MCV 90.2 fl (80-96) 06/22/17 05:41 MCHC 32.7 g/dl (32.0-36.0) 06/22/17 05:41 RDW 24.4 % (11.6-15.6) H 06/22/17 05:41 Plt Count 319 K/MM3 (134-434) 06/22/17 05:41 MPV 7.6 fl (7.5-11.1) 06/22/17 05:41 CMP Sodium 139 mmol/L (136-145) 06/22/17 05:41 Potassium 4.1 mmol/L (3.5-5.1) 06/22/17 05:41 Chloride 108 mmol/L (98-107) H 06/22/17 05:41 Carbon Dioxide 17 mmol/L (21-32) L 06/22/17 05:41 Anion Gap 14 (8-16) 06/22/17 05:41 BUN 31 mg/dL (7-18) H 06/22/17 05:41 Creatinine 0.7 mg/dL (0.55-1.02) 06/22/17 05:41 Creat Clearance w eGFR 47.32 (>60) 06/21/17 06:30 Calcium 8.4 mg/dL (8.5-10.1) L 06/22/17 05:41 Total Bilirubin 0.6 mg/dL (0.2-1.0) D 06/21/17 06:30 AST 26 U/L (15-37) 06/21/17 06:30 ALT 33 U/L (12-78) 06/21/17 06:30 Alkaline Phosphatase 149 U/L (45-117) H 06/21/17 06:30 Total Protein 5.5 g/dl (6.4-8.2) L 06/21/17 06:30 Albumin 2.6 g/dl (3.4-5.0) L 06/21/17 06:30 Problem List - Problems (1) Bowel obstruction Code(s): K56.609 - UNSP INTESTNL OBST, UNSP TO PARTIAL VERSUS COMPLETE OBST Assessment/Plan SBO appears to resolve. Trial of liquid diet
[2017-06-23 07:57] LABS: BASO % 0.4 % (0-2.0); EOS % 3.5 % (0-4.5); HEMATOCRIT 26.8 % (32.4-45.2); HEMOGLOBIN 8.9 GM/dL (10.7-15.3); LYMPH % 20.6 % (8-40); MCH 29.8 pg (25.7-33.7); MCHC 33.1 g/dl (32.0-36.0); MEAN CELL VOLUME 90.1 fl (80-96); MEAN PLT VOLUME 7.3 fl (7.5-11.1); NEUT % 64.5 % (42.8-82.8); PLATELET COUNT 295 K/MM3 (134-434); RBC 2.98 M/mm3 (3.60-5.2); RDW 23.7 % (11.6-15.6); WHITE BLOOD COUNT 6.1 K/mm3 (4.0-10.0)
[2017-06-23 08:44] LABS: ANION GAP 12 (8-16); BLOOD UREA NITROGEN 19 mg/dL (7-18); CHLORIDE 107 mmol/L (98-107); CO2 19 mmol/L (21-32); GLUCOSE,RANDOM 73 mg/dL (74-106); MAGNESIUM 1.4 mg/dL (1.8-2.4); POTASSIUM 3.9 mmol/L (3.5-5.1); SODIUM 138 mmol/L (136-145)
[2017-06-23 08:45] LABS: CREATININE 0.4 mg/dL (0.55-1.02); PHOSPHOROUS 3.3 mg/dL (2.5-4.9)
--- NOTE | 2017-06-23 09:37 | PN ---
Progress Note (short form) - Note Progress Note: Attending Surgeon No c/o; tolerating liquids; passing flatus; no BM VSS AF abdomen-soft; flat and non tender AXR's yesterday-resolved obstruction IMP:clinically resolved SBO PLAN: Regular diet and prn MOM as she has had in the outpatient setting. José Miguel Coffman MD FACS
[2017-06-23] MEDS: BACITRACIN 15 GM TUBE TOPICAL OINTMENT TP SCH (10:30)
[2017-06-23] MEDS: LEVOFLOXACIN 250 MG IVPB 250 MG/50 ML MG IVPB SCH (10:31)
[2017-06-23] MEDS: NICOTINE 14 MG/24 HOURS TOPICAL PATCH TD SCH (10:36)
[2017-06-23] MEDS: BUDESONIDE/FORMETEROL FUMARATE 160/4.5 mcg INHALER IH SCH ×2 (10:36→21:37)
[2017-06-23] MEDS: TIOTROPIUM BROMIDE 18 MCG/INH (DEVICE W/ 5 CAPSULES) IH SCH (10:36)
--- NOTE | 2017-06-23 13:33 | PN ---
Progress Note (short form) - Note Progress Note: Subjective: The patient was seen and examined at the bedside, she has no complaints at this time. Current Medications Generic Name Dose Route Start Last Admin Trade Name Freq PRN Reason Stop Dose Admin Albuterol Sulfate 1 amp 06/20/17 17:06 06/22/17 11:51 Ventolin 0.083% Nebulizer Soln - NEB 1 amp Q4H PRN Administration SHORT OF BREATH/WHEEZING Bacitracin 1 applic 06/21/17 10:00 06/23/17 10:30 Bacitracin - TP 1 applic DAILY MUKUND Administration Benzocaine/Butamben/Tetracaine HCl 1 spray 06/20/17 23:46 06/21/17 11:32 Cetacaine [place] - TP 1 spray Q4H PRN Administration PAIN Budesonide/Formoterol Fumarate 2 puff 06/20/17 22:00 06/23/17 10:36 Symbicort 160/4.5mcg - IH 2 puff BID MUKUND Administration Levofloxacin 250 mg in 50 mls @ 50 mls/hr 06/22/17 10:00 06/23/17 10:31 Levaquin 250 Mg Premixed Ivpb - IVPB 50 mls/hr DAILY MUKUND Administration Sodium Chloride 1,000 mls @ 83 mls/hr 06/21/17 15:20 06/23/17 06:54 Normal Saline - IV 83 mls/hr ASDIR MUKUND Administration Magnesium Oxide 400 mg 06/23/17 13:26 Mag-Ox - PO 06/23/17 13:27 ONCE ONE Morphine Sulfate 2 mg 06/23/17 12:07 Morphine Injection - IVPUSH Q4H PRN PAIN LEVEL 4 - 6 Nicotine 14 mg 06/21/17 10:00 06/23/17 10:36 Nicoderm Patch - TD 14 mg DAILY MUKUND Administration Ondansetron HCl 4 mg 06/21/17 04:00 Zofran Injection IVPUSH Q8H PRN NAUSEA Tiotropium [place] 1 puff 06/21/17 10:00 06/23/17 10:36 Spiriva - IH 1 puff DAILY MUKUND Administration Objective: Vital Signs Period Temp Pulse Resp BP Sys/Ornelas Pulse Ox Last 24 Hr 97.7 F-98.2 F 79-105 18-22 97-134/51-89 95 Physical Exam: CBCD WBC 6.1 K/mm3 (4.0-10.0) 06/23/17 06:45 RBC 2.98 M/mm3 (3.60-5.2) L 06/23/17 06:45 Hgb 8.9 GM/dL (10.7-15.3) L 06/23/17 06:45 Hct 26.8 % (32.4-45.2) L 06/23/17 06:45 MCV 90.1 fl (80-96) 06/23/17 06:45 MCHC 33.1 g/dl (32.0-36.0) 06/23/17 06:45 RDW 23.7 % (11.6-15.6) H 06/23/17 06:45 Plt Count 295 K/MM3 (134-434) 06/23/17 06:45 MPV 7.3 fl (7.5-11.1) L 06/23/17 06:45 CMP Sodium 138 mmol/L (136-145) 06/23/17 06:45 Potassium 3.9 mmol/L (3.5-5.1) 06/23/17 06:45 Chloride 107 mmol/L (98-107) 06/23/17 06:45 Carbon Dioxide 19 mmol/L (21-32) L 06/23/17 06:45 Anion Gap 12 (8-16) 06/23/17 06:45 BUN 19 mg/dL (7-18) H 06/23/17 06:45 Creatinine 0.4 mg/dL (0.55-1.02) L 06/23/17 06:45 Creat Clearance w eGFR 47.32 (>60) 06/21/17 06:30 Random Glucose 73 mg/dL (74-106) L 06/23/17 06:45 Calcium 8.0 mg/dL (8.5-10.1) L 06/23/17 06:45 Total Bilirubin 0.6 mg/dL (0.2-1.0) D 06/21/17 06:30 AST 26 U/L (15-37) 06/21/17 06:30 ALT 33 U/L (12-78) 06/21/17 06:30 Alkaline Phosphatase 149 U/L (45-117) H 06/21/17 06:30 Total Protein 5.5 g/dl (6.4-8.2) L 06/21/17 06:30 Albumin 2.6 g/dl (3.4-5.0) L 06/21/17 06:30 Microbiology 06/21/17 13:45 Urine - Urine Gee Urine Culture - Final NO GROWTH OBTAINED Assessment: This is an 86 year old female with PMHx of spinal stenosis, CHF, CAD , COPD, HTN, diverticulitis, colon resection 1993, left lower extremity wound, who presented to the ED with coffee ground emesis Plan: 1) Acute SBO - Appears resolved - NGT removed yesterday - Patient passing gas - Advance diet per GI - Appreciate GI consult 2) Upper GI bleed - Hgb 8.9 today, continue to trend - Appreciate GI consult 3) Hypovolemia hyponatremia - Resolved 4) Acute urinary retention - Patient failed voiding trial yesterday - Gee catheter placed back in - Patient reports voiding on her own without gee catheter prior to admission - F/u urology consult 5) UTI? - UA with 3+ leuks, 20 wbc, rare bacteria - Urine culture with no growth - Levaquin as patient was symptomatic 6) Metabolic acidosis - Work up per renal - Lactic acid wnl 7) HTN - Hypotension resolved with fluid bolus - Hold Spironolactone, Enalapril for now, pt npo and low bp - Can give Lopressor IV prn 8) CHF - No evidence of acute exacerbation at this time 9) CAD - Resume ASA once cleared by GI 10) COPD - Not in exacerbation - Continue Symbicort - Continue Spiriva 11) Left lower extremity wound - Continue Bacitracin 12) Prophylaxis - Patient has multiple wound on b/l lower extremities, will hold off on TEDs or SCDs and multiple areas of skin breakdown on shins - PT: pt reports was receving PT at rehab with improved, she was able to stand with assistance, however no meaningful ambulation, L leg > R leg 13) Smoking - Nicotine patch CODE STATUS: FULL CODE Visit type - Emergency Visit Emergency Visit: Yes ED Registration Date: 06/20/17 Care time: The patient presented to the Emergency Department on the above date and was hospitalized for further evaluation of their emergent condition. - New Patient This patient is new to me today: No - Critical Care Critical Care patient: No
[2017-06-23] MEDS ORDERED: MAGNESIUM OXIDE 400 MG TABLET (FP) PO ONE (14:00)
--- NOTE | 2017-06-23 18:10 | CON.GU ---
Consult Consult Specialty:: Urology Reason for Consultation:: Urinary retention - History of Present Illness History of Present Illness: Pt unable to void this morning after [place] catheter removed. 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 - Home Medications Home Medications: Ambulatory Orders Budesonide/Formeterol Fumarate [SYMBICORT 160/4.5mcg -] 2 inh PO BID 06/08/17 Cholecalciferol (Vitamin D3) [Vitamin D3] 2,000 unit PO DAILY 06/08/17 Enalapril Maleate 5 mg PO DAILY 06/08/17 Famotidine 20 mg PO BID 06/08/17 Gabapentin [Neurontin -] 100 mg PO Q8H 06/08/17 Metoprolol Succinate 25 mg PO DAILY 06/08/17 Oxycodone HCl 5 mg PO QID 06/08/17 Spironolactone 25 mg PO DAILY 06/08/17 Acetaminophen [Tylenol .Regular Strength -] 650 mg PO Q6H PRN tablet 06/10/17 Albuterol 0.083% Nebulizer Miley [Ventolin 0.083% Nebulizer Soln -] 1 amp NEB Q4H PRN amp 06/10/17 Aspirin [ASA -] 81 mg PO DAILY tab.chew 06/10/17 Bacitracin - [Bacitracin Topical Ointment -] 1 applic TP DAILY tube 06/10/17 Aa/Hydrolyzed Collagen, Whey [Lps 15-30 Liquid] 30 ml PO BID 06/20/17 Ascorbate Calcium [Vitamin C] 500 mg PO DAILY 06/20/17 Bisacodyl [Dulcolax] 10 mg RC DAILY PRN 06/20/17 Bismuth Tribromoph/Petrolatum [Xeroform 5"X9" Gauze Strip] 1 each TP DAILY 06/20 Enoxaparin Sodium [Lovenox] 40 mg SQ DAILY 06/20/17 Magnesium Hydrox 2400MG/30Ml [Milk of Magnesia -] 30 ml PO DAILY PRN 06/20/17 Multivitamin [Poly-Vitamin] 1 each PO DAILY 06/20/17 Nutritional Supplement [Hi-Campbell] 120 ml PO BID 06/20/17 Ondansetron HCl/Pf [Ondansetron 4 mg/2 ml Isecure] 4 mg IM Q8H PRN 06/20/17 Pantoprazole Sodium [Protonix -] 40 mg PO DAILY 06/20/17 Polyethylene Glycol 3350 [Smoothlax] 17 gm PO DAILY 06/20/17 Tiotropium [place] [Spiriva] 1 inh PO DAILY 06/20/17 Zinc Sulfate [Orazinc] 220 mg PO DAILY 06/20/17 Family Disease History - Family Disease History Family History: Unremarkable Review of Systems - Review of Systems Constitutional: reports: No Symptoms Eyes: reports: No Symptoms HENT: reports: No Symptoms Neck: reports: No Symptoms Cardiovascular: reports: No Symptoms Respiratory: reports: No Symptoms Gastrointestinal: reports: Vomiting Genitourinary: reports: No Symptoms, Incontinence, Other (retention) Breasts: reports: No Symptoms Reported Musculoskeletal: reports: No Symptoms Integumentary: reports: No Symptoms Neurological: reports: No Symptoms Endocrine: reports: No Symptoms Hematology/Lymphatic: reports: No Symptoms Psychiatric: reports: No Symptoms Physical Exam- Vital Signs: Vital Signs Temperature 98.2 F 06/23/17 14:00 Pulse Rate 94 H 06/23/17 14:00 Respiratory Rate 20 06/23/17 14:00 Blood Pressure 110/64 06/23/17 14:00 O2 Sat by Pulse Oximetry (%) 95 06/23/17 09:00 Constitutional: Yes: Well Nourished, No Distress Eyes: Yes: WNL HENT: Yes: WNL Neck: Yes: WNL Cardiovascular: Yes: WNL Respiratory: Yes: WNL Gastrointestinal: Yes: WNL Renal/: Yes: [place] Present Kidneys: Yes: WNL External Genitalia: Yes: WNL Musculoskeletal: Yes: WNL Extremities: Yes: WNL Integumentary: Yes: WNL Labs: CBC, BMP 06/23/17 06:45 06/23/17 06:45 Imaging - Results Ultrasound: Report Reviewed (No evidence of stones or significant hydronephrosis ) Problem List - Problems (1) Urinary retention Code(s): R33.9 - RETENTION OF URINE, UNSPECIFIED (2) Acute urinary retention Code(s): R33.8 - OTHER RETENTION OF URINE Assessment/Plan Recommend starting both flomax daily and bethenachol tid. After 2 days of medical therapy re-attempt TTV.
[2017-06-23] MEDS: BETHANECHOL CHLORIDE 25 MG TABLET PO SCH (21:37)
[2017-06-24] MEDS: MORPHINE SULFATE 10 MG/1 ML *VIAL IVPUSH PRN ×5 (02:38→21:01)
[2017-06-24] MEDS: SODIUM CHLORIDE 1,000 ML IV SCH ×3 (06:31→21:18)
[2017-06-24] MEDS: BETHANECHOL CHLORIDE 25 MG TABLET PO SCH ×3 (06:32→21:01)
[2017-06-24 07:30] LABS: HEMATOCRIT 28.7 % (32.4-45.2); HEMOGLOBIN 9.5 GM/dL (10.7-15.3); MCH 29.8 pg (25.7-33.7); MEAN CELL VOLUME 90.4 fl (80-96); MEAN PLT VOLUME 7.2 fl (7.5-11.1); PLATELET COUNT 304 K/MM3 (134-434); RBC 3.18 M/mm3 (3.60-5.2); RDW 23.3 % (11.6-15.6); WHITE BLOOD COUNT 7.6 K/mm3 (4.0-10.0)
[2017-06-24 08:01] LABS: ALBUMIN 2.1 g/dl (3.4-5.0); ANION GAP 9 (8-16); BLOOD UREA NITROGEN 9 mg/dL (7-18); CALCIUM 7.6 mg/dL (8.5-10.1); CHLORIDE 107 mmol/L (98-107); CO2 22 mmol/L (21-32); GLUCOSE,RANDOM 102 mg/dL (74-106); POTASSIUM 3.6 mmol/L (3.5-5.1); SODIUM 138 mmol/L (136-145)
[2017-06-24 08:06] LABS: ALK PHOS 107 U/L (45-117); BILIRUBIN,TOTAL 0.7 mg/dL (0.2-1.0); CREATININE 0.4 mg/dL (0.55-1.02); SGOT/AST 22 U/L (15-37); SGPT/ALT 29 U/L (12-78); TOT PROT 4.7 g/dl (6.4-8.2)
[2017-06-24] MEDS: TAMSULOSIN HCL 0.4 MG CAP.ER.24H (FP) PO SCH (10:19)
[2017-06-24] MEDS: BACITRACIN 15 GM TUBE TOPICAL OINTMENT TP SCH (10:19)
[2017-06-24] MEDS: LEVOFLOXACIN 250 MG IVPB 250 MG/50 ML MG IVPB SCH (10:19)
[2017-06-24] MEDS: TIOTROPIUM BROMIDE 18 MCG/INH (DEVICE W/ 5 CAPSULES) IH SCH (10:20)
[2017-06-24] MEDS: NICOTINE 14 MG/24 HOURS TOPICAL PATCH TD SCH (10:21)
[2017-06-24] MEDS: BUDESONIDE/FORMETEROL FUMARATE 160/4.5 mcg INHALER IH SCH ×2 (10:21→21:19)
[2017-06-24] MEDS ORDERED: MAGNESIUM HYDROX 2400MG/30ML ORAL SUSPENSION 30 ML CUP PO ONE (12:42)
--- NOTE | 2017-06-24 12:42 | PN ---
Progress Note (short form) - Note Progress Note: Subjective: The patient was seen and examined at the bedside, she has no complaints at this time. Current Medications Generic Name Dose Route Start Last Admin Trade Name Freq PRN Reason Stop Dose Admin Albuterol Sulfate 1 amp 06/20/17 17:06 06/22/17 11:51 Ventolin 0.083% Nebulizer Soln - NEB 1 amp Q4H PRN Administration SHORT OF BREATH/WHEEZING Bacitracin 1 applic 06/21/17 10:00 06/24/17 10:19 Bacitracin - TP 1 applic DAILY MUKUND Administration Benzocaine/Butamben/Tetracaine HCl 1 spray 06/20/17 23:46 06/21/17 11:32 Cetacaine [place] - TP 1 spray Q4H PRN Administration PAIN Bethanechol Chloride 25 mg 06/23/17 22:00 06/24/17 06:32 Urecholine - PO 25 mg TID MUKUND Administration Budesonide/Formoterol Fumarate 2 puff 06/20/17 22:00 06/24/17 10:21 Symbicort 160/4.5mcg - IH 2 puff BID MUKUND Administration Levofloxacin 250 mg in 50 mls @ 50 mls/hr 06/22/17 10:00 06/24/17 10:19 Levaquin 250 Mg Premixed Ivpb - IVPB 50 mls/hr DAILY MUKUND Administration Sodium Chloride 1,000 mls @ 83 mls/hr 06/21/17 15:20 06/24/17 06:31 Normal Saline - IV 83 mls/hr ASDIR MUKUND Administration Morphine Sulfate 2 mg 06/23/17 12:07 06/24/17 07:51 Morphine Injection - IVPUSH 2 mg Q4H PRN Administration PAIN LEVEL 4 - 6 Nicotine 14 mg 06/21/17 10:00 06/24/17 10:21 Nicoderm Patch - TD 14 mg DAILY MUKUND Administration Ondansetron HCl 4 mg 06/21/17 04:00 Zofran Injection IVPUSH Q8H PRN NAUSEA Tamsulosin HCl 0.4 mg 06/24/17 08:30 06/24/17 10:19 Flomax - PO 0.4 mg DAILY@0830 MUKUND Administration Tiotropium [place] 1 puff 06/21/17 10:00 06/24/17 10:20 Spiriva - IH 1 puff DAILY MUKUND Administration Objective: Vital Signs Period Temp Pulse Resp BP Sys/Ornelas Pulse Ox Last 24 Hr 97.7 F-98.5 F 77-96 16-20 110-148/59-73 95 Physical Exam: General: NAD, A&Ox3 Lungs: CTA bilaterally Heart: RRR, S1S2 Abd: Soft, non-tender, non-distended. Normoactive bowel sounds Ext: Multiple abrasions bilaterally. B/l leg dressings c/d/i CBCD WBC 7.6 K/mm3 (4.0-10.0) 06/24/17 06:40 RBC 3.18 M/mm3 (3.60-5.2) L 06/24/17 06:40 Hgb 9.5 GM/dL (10.7-15.3) L 06/24/17 06:40 Hct 28.7 % (32.4-45.2) L 06/24/17 06:40 MCV 90.4 fl (80-96) 06/24/17 06:40 MCHC 33.0 g/dl (32.0-36.0) 06/24/17 06:40 RDW 23.3 % (11.6-15.6) H 06/24/17 06:40 Plt Count 304 K/MM3 (134-434) 06/24/17 06:40 MPV 7.2 fl (7.5-11.1) L 06/24/17 06:40 CMP Sodium 138 mmol/L (136-145) 06/24/17 06:40 Potassium 3.6 mmol/L (3.5-5.1) 06/24/17 06:40 Chloride 107 mmol/L (98-107) 06/24/17 06:40 Carbon Dioxide 22 mmol/L (21-32) 06/24/17 06:40 Anion Gap 9 (8-16) 06/24/17 06:40 BUN 9 mg/dL (7-18) 06/24/17 06:40 Creatinine 0.4 mg/dL (0.55-1.02) L 06/24/17 06:40 Creat Clearance w eGFR > 60 (>60) 06/24/17 06:40 Random Glucose 102 mg/dL (74-106) 06/24/17 06:40 Calcium 7.6 mg/dL (8.5-10.1) L 06/24/17 06:40 Total Bilirubin 0.7 mg/dL (0.2-1.0) 06/24/17 06:40 AST 22 U/L (15-37) 06/24/17 06:40 ALT 29 U/L (12-78) 06/24/17 06:40 Alkaline Phosphatase 107 U/L (45-117) 06/24/17 06:40 Total Protein 4.7 g/dl (6.4-8.2) L 06/24/17 06:40 Albumin 2.1 g/dl (3.4-5.0) L 06/24/17 06:40 Microbiology 06/21/17 13:45 Urine - Urine [place] Urine Culture - Final NO GROWTH OBTAINED Assessment: This is an 86 year old female with PMHx of spinal stenosis, CHF, CAD , COPD, HTN, diverticulitis, colon resection 1993, left lower extremity wound, who presented to the ED with coffee ground emesis Plan: 1) Acute SBO - Appears resolved - NGT removed - Patient passing gas - Advance diet per GI - Appreciate GI consult 2) Upper GI bleed - Hgb 8.9 today, continue to trend - Appreciate GI consult 3) Hypovolemia hyponatremia - Resolved 4) Acute urinary retention - Patient failed voiding trial on 06/22 - Appreciate consult: Flomax daily and Bethenachol tid then reattempt void trial in 2 days 5) UTI? - UA with 3+ leuks, 20 wbc, rare bacteria - Urine culture with no growth - Levaquin 6) Metabolic acidosis - Work up per renal - Lactic acid wnl 7) HTN - BP controlled 8) CHF - No evidence of acute exacerbation at this time 9) CAD - Resume ASA once cleared by GI 10) COPD - Not in exacerbation - Continue Symbicort - Continue Spiriva 11) Left lower extremity wound - Continue Bacitracin 12) Prophylaxis - Patient has multiple wound on b/l lower extremities, will hold off on TEDs or SCDs and multiple areas of skin breakdown on shins - PT: pt reports was receving PT at rehab with improved, she was able to stand with assistance, however no meaningful ambulation, L leg > R leg 13) Smoking - Nicotine patch CODE STATUS: FULL CODE Visit type - Emergency Visit Emergency Visit: Yes ED Registration Date: 06/20/17 Care time: The patient presented to the Emergency Department on the above date and was hospitalized for further evaluation of their emergent condition. - New Patient This patient is new to me today: No - Critical Care Critical Care patient: No
--- NOTE | 2017-06-24 13:32 | PN ---
Progress Note (short form) - Note Progress Note: Renal follow up for Hyponatremia Pt seen and examined at the bedside no acute complaints requesting more milk of magnesia no sob, chest pain on IVF tolerating liquid diet no diarrhea + constipation Vital Signs Temperature 97.9 F 06/24/17 06:00 Pulse Rate 96 H 06/24/17 06:00 Respiratory Rate 16 06/24/17 06:00 Blood Pressure 129/67 06/24/17 06:00 O2 Sat by Pulse Oximetry (%) 95 06/23/17 21:00 Intake & Output 06/21/17 06/22/17 06/23/17 06/24/17 23:59 23:59 23:59 23:59 Intake Total 2299 100 963 6540 Output Total 2825 750 1750 500 Balance -526 235 -1169 910 NAD RRR CTA no LE edema CBC, BMP 06/24/17 06:40 06/24/17 06:40 Current Medications Albuterol Sulfate (Ventolin 0.083% Nebulizer Soln -) 1 amp NEB Q4H PRN PRN Reason: SHORT OF BREATH/WHEEZING Last Admin: 06/22/17 11:51 Dose: 1 amp Bacitracin (Bacitracin -) 1 applic TP DAILY [facility] Last Admin: 06/24/17 10:19 Dose: 1 applic Benzocaine/Butamben/Tetracaine HCl (Cetacaine [place] -) 1 spray TP Q4H PRN PRN Reason: PAIN Last Admin: 06/21/17 11:32 Dose: 1 spray Bethanechol Chloride (Urecholine -) 25 mg PO TID [facility] Last Admin: 06/24/17 13:14 Dose: 25 mg Budesonide/Formoterol Fumarate (Symbicort 160/4.5mcg -) 2 puff IH BID [facility] Last Admin: 06/24/17 10:21 Dose: 2 puff Levofloxacin (Levaquin 250 Mg Premixed Ivpb -) 250 mg in 50 mls @ 50 mls/hr IVPB DAILY [facility] Last Admin: 06/24/17 10:19 Dose: 50 mls/hr Sodium Chloride (Normal Saline -) 1,000 mls @ 83 mls/hr IV ASDIR [facility] Last Admin: 06/24/17 06:31 Dose: 83 mls/hr Morphine Sulfate (Morphine Injection -) 2 mg IVPUSH Q4H PRN PRN Reason: PAIN LEVEL 4 - 6 Last Admin: 06/24/17 13:09 Dose: 2 mg Nicotine (Nicoderm Patch -) 14 mg TD DAILY [facility] Last Admin: 06/24/17 10:21 Dose: 14 mg Ondansetron HCl (Zofran Injection) 4 mg IVPUSH Q8H PRN PRN Reason: NAUSEA Tamsulosin HCl (Flomax -) 0.4 mg PO DAILY@0830 [facility] Last Admin: 06/24/17 10:19 Dose: 0.4 mg Tiotropium [place] (Spiriva -) 1 puff IH DAILY [facility] Last Admin: 06/24/17 10:20 Dose: 1 puff 86 year old woman with PMhx of COPD, Former smoker, Afib, HF, PVD, Hypertension who presented with N/V and hematemesis and found to have possible SBO and found to have hyponatremia. #Hypovolemic Hyponatremia in setting of vomiting Serum Na now WNL no further vomiting can decrease IVF rate to 50cc per hour and plan to stop with pt is tolerating a adaqute oral diet #Anion gap + non gap metabolic acidosis serum bicarb is now WNL #Hydronephrosis improved s/p gee urology following for trial of void will sign off case at this time thank you for allowing us to take part in the care of this patient please call with any questions or concerns Thank you Johnny Nobles DO
[2017-06-24] MEDS ORDERED: PT OWN MED DRAWER 7, Y5N ONE (21:16)
[2017-06-25] MEDS: MORPHINE SULFATE 10 MG/1 ML *VIAL IVPUSH PRN ×2 (01:18→05:06)
[2017-06-25] MEDS: BETHANECHOL CHLORIDE 25 MG TABLET PO SCH ×3 (06:39→22:47)
[2017-06-25] MEDS: LEVOFLOXACIN 250 MG IVPB 250 MG/50 ML MG IVPB SCH (09:14)
[2017-06-25] MEDS: TAMSULOSIN HCL 0.4 MG CAP.ER.24H (FP) PO SCH (09:14)
[2017-06-25] MEDS: NICOTINE 14 MG/24 HOURS TOPICAL PATCH TD SCH (09:15)
[2017-06-25] MEDS: TIOTROPIUM BROMIDE 18 MCG/INH (DEVICE W/ 5 CAPSULES) IH SCH (09:17)
[2017-06-25] MEDS: BACITRACIN 15 GM TUBE TOPICAL OINTMENT TP SCH (09:17)
[2017-06-25] MEDS: BUDESONIDE/FORMETEROL FUMARATE 160/4.5 mcg INHALER IH SCH ×2 (09:17→22:49)
--- NOTE | 2017-06-25 10:13 | DS ---
Physical Examination Vital Signs: Vital Signs Temperature 98.6 F 06/25/17 06:00 Pulse Rate 98 H 06/25/17 06:00 Respiratory Rate 18 06/25/17 06:00 Blood Pressure 106/52 06/25/17 06:00 O2 Sat by Pulse Oximetry (%) 95 06/24/17 21:00 Labs: CBC, BMP 06/24/17 06:40 06/24/17 06:40 Discharge Summary Reason For Visit: COFFEE GROUND EMESIS Current Active Problems Acute urinary retention (Acute) Bowel obstruction (Acute) Coffee ground emesis (Acute) Urinary retention (Acute) Hospital Course: Patient passing gas, denies nausea, vomiting, abdominal pain Condition: Improved - Instructions Diet, Activity, Other Instructions: Please return to the ED with new, persistent, or worsening symptoms. Please follow-up with providers as indicated. Continue gee catheter care. You may have your gee removed on 06/26. If for any reason you are unable to void. Call Dr. Correa's office immediately for further recommendations. Continue Flomax daily and bethenachol three times a day. Referrals: Param Correa MD [Staff Physician] - (Please follow-up with Dr. Correa within 2-3 days for further management of your acute urinary retention) Johnny Nobles MD [Staff Physician] - 1 Week Gera Gonzalez MD [Staff Physician] - 1 Week Winston Villanueva MD [Staff Physician] - 1 Week Disposition: ALF FACILITY - Home Medications Comprehensive Discharge Medication List: Ambulatory Orders Budesonide/Formeterol Fumarate [SYMBICORT 160/4.5mcg -] 2 inh PO BID 06/08/17 Cholecalciferol (Vitamin D3) [Vitamin D3] 2,000 unit PO DAILY 06/08/17 Enalapril Maleate 5 mg PO DAILY 06/08/17 Famotidine 20 mg PO BID 06/08/17 Gabapentin [Neurontin -] 100 mg PO Q8H 06/08/17 Metoprolol Succinate 25 mg PO DAILY 06/08/17 Oxycodone HCl 5 mg PO QID 06/08/17 Spironolactone 25 mg PO DAILY 06/08/17 Acetaminophen [Tylenol .Regular Strength -] 650 mg PO Q6H PRN tablet 06/10/17 Albuterol 0.083% Nebulizer Miley [Ventolin 0.083% Nebulizer Soln -] 1 amp NEB Q4H PRN amp 06/10/17 Aspirin [ASA -] 81 mg PO DAILY tab.chew 06/10/17 Bacitracin - [Bacitracin Topical Ointment -] 1 applic TP DAILY tube 06/10/17 Aa/Hydrolyzed Collagen, Whey [Lps 15-30 Liquid] 30 ml PO BID 06/20/17 Ascorbate Calcium [Vitamin C] 500 mg PO DAILY 06/20/17 Bisacodyl [Dulcolax] 10 mg RC DAILY PRN 06/20/17 Bismuth Tribromoph/Petrolatum [Xeroform 5"X9" Gauze Strip] 1 each TP DAILY 06/20 Enoxaparin Sodium [Lovenox] 40 mg SQ DAILY 06/20/17 Magnesium Hydrox 2400MG/30Ml [Milk of Magnesia -] 30 ml PO DAILY PRN 06/20/17 Multivitamin [Poly-Vitamin] 1 each PO DAILY 06/20/17 Nutritional Supplement [Hi-Campbell] 120 ml PO BID 06/20/17 Ondansetron HCl/Pf [Ondansetron 4 mg/2 ml Isecure] 4 mg IM Q8H PRN 06/20/17 Pantoprazole Sodium [Protonix -] 40 mg PO DAILY 06/20/17 Polyethylene Glycol 3350 [Smoothlax] 17 gm PO DAILY 06/20/17 Tiotropium [place] [Spiriva] 1 inh PO DAILY 06/20/17 Zinc Sulfate [Orazinc -] 220 mg PO DAILY 06/20/17 Bethanechol Chloride [Bethanechol Chloride -] 25 mg PO TID tablet 06/25/17 Nicotine Patch [Nicoderm Patch -] 14 mg TD DAILY patch 06/25/17 Tamsulosin HCl [Flomax -] 0.4 mg PO DAILY@0830 cap.er.24h 06/25/17 Tetracaine/Benzocaine/Butamben [Cetacaine [place] -] 1 spray TP Q4H PRN bottle
[2017-06-25] MEDS: oxyCODONE HCL 5 MG TABLET PO PRN ×2 (14:23→22:47)
[2017-06-25] MEDS: SODIUM CHLORIDE 1,000 ML IV SCH (14:24)
[2017-06-26] MEDS: oxyCODONE HCL 5 MG TABLET PO PRN ×3 (02:47→11:05)
[2017-06-26] MEDS: BETHANECHOL CHLORIDE 25 MG TABLET PO SCH (05:48)
[2017-06-26] MEDS ORDERED: PT OWN MED DRAWER 7, Y5N ONE (09:17)
[2017-06-26] MEDS: LEVOFLOXACIN 250 MG IVPB 250 MG/50 ML MG IVPB SCH (09:21)
[2017-06-26] MEDS: NICOTINE 14 MG/24 HOURS TOPICAL PATCH TD SCH ×2 (09:21→09:24)
[2017-06-26] MEDS: TAMSULOSIN HCL 0.4 MG CAP.ER.24H (FP) PO SCH (09:21)
[2017-06-26] MEDS: BACITRACIN 15 GM TUBE TOPICAL OINTMENT TP SCH (09:22)
[2017-06-26] MEDS: BUDESONIDE/FORMETEROL FUMARATE 160/4.5 mcg INHALER IH SCH (09:22)
[2017-06-26] MEDS: TIOTROPIUM BROMIDE 18 MCG/INH (DEVICE W/ 5 CAPSULES) IH SCH (09:22)
[2017-06-26 11:55] VITALS: TEMP 98
[2017-06-26 12:08] VITALS: BP 113/69; PULSE 106
== END 2017-06-26 11:45 | DRG 389 ==
LOC: JER 15:18 → JERBED 17:01 → J4S 18:56 → J7W 06-25 21:24
PROVIDERS: ADMIT Internal Medicine; ATTEND Registered Nurse
PROC: 0T9B80Z Drainage of Bladder with Drainage Device, Via Natural or Artificial Opening Endoscopic (ICD-10-PCS; principal; 2017-06-23)
DX: K56.600 Partial intestinal obstruction, unspecified as to cause (principal); K92.2 Gastrointestinal hemorrhage, unspecified; E87.1 Hypo-osmolality and hyponatremia; E87.2 Acidosis; N39.0 Urinary tract infection, site not specified; N13.2 Hydronephrosis with renal and ureteral calculous obstruction; K92.0 Hematemesis; L97.421 Non-pressure chronic ulcer of left heel and midfoot limited to breakdown of skin; L97.411 Non-pressure chronic ulcer of right heel and midfoot limited to breakdown of skin; I11.0 Hypertensive heart disease with heart failure; I50.9 Heart failure, unspecified; M62.462 Contracture of muscle, left lower leg; M62.461 Contracture of muscle, right lower leg; R33.9 Retention of urine, unspecified; J44.9 Chronic obstructive pulmonary disease, unspecified; I25.10 Atherosclerotic heart disease of native coronary artery without angina pectoris; F17.210 Nicotine dependence, cigarettes, uncomplicated; I73.9 Peripheral vascular disease, unspecified; Z90.49 Acquired absence of other specified parts of digestive tract; F10.10 Alcohol abuse, uncomplicated; Y90.0 Blood alcohol level of less than 20 mg/100 ml; E86.9 Volume depletion, unspecified; I65.22 Occlusion and stenosis of left carotid artery
CPT/HCPCS: 36415; 71045-TC; 74018-TC; 74019-TC; 74176-TC; 76775-TC; 80048; 80053; 81003; 81015; 83605; 83735; 83930; 83935; 84100; 84300; 85025; 85027; 85610; 85730; 86850; 86900; 86901; 87086; 93005; 93010; 94640; 97161-GP; 99285-25

== ENCOUNTER 2017-06-28 11:09 | Inpatient (IN) | payer OTHER, MEDICARE ==
--- NOTE | 2017-06-28 11:34 | PDOC ---
Attending Attestation - Resident Resident Name: Elton Steele - ED Attending Attestation I have performed the following: I have examined & evaluated the patient, The case was reviewed & discussed with the resident, I agree w/resident's findings & plan, Exceptions are as noted - HPI HPI: 06/28/17 11:34 86y F hx of COPD, CHF, HTN, CAD, PVD, carotid stenosis, diverticulitis, spinal stenosis presents from [facility] for concern of coffee ground emesis. Per the patient, she was doing fine yesterday and today vomited brownish substance after she took her morning pills. Pt endorses mild abdmoinal pain after vomiting. pt denies seeing any blood in her vomit or stool, no melena, or dark stool or bpr. Pt denies any cp, sob. pt was recently admitted at [facility] for similar complaint and her HGB was stable, no further lbeednig here and was throught to be secondary to SBO. Back in 2016, she had a EGD that showed a small area of bleeding that was ablated. on exam pt is well apeapring in no distress abd soft nontender vitals normal concern for GIB will give dose of protonix will trend HGB anticpate obs/admission w/ GI Consult 06/28/17 14:45 labs reviewed hct stable vitals stalbe pt appears well. stool guaaic, BUN wnl, less likely UGIB pt had vomiting epsode in ED, and it did appear dark in color, but did not look coffee ground pt admitted for further managment - Physicial Exam PE: 07/07/17 09:46 see above - Medical Decision Making 07/07/17 09:46 see above Heart Score/ECG Review - ECG Impressions Comment:: 06/28/17 13:35 Twelve-lead EKG was performed and reviewed by me. There is normal sinus rhythm with a rate of 109 The axis is normal. Abnormal R wave progression
--- NOTE | 2017-06-28 11:35 | PDOC ---
History of Present Illness - General Chief Complaint: Coffee Ground Emesis Stated Complaint: COFFEE-GROUND EMESIS Time Seen by Provider: 06/28/17 11:14 - History of Present Illness Initial Comments: 86 year old female with PMH of COPD, CHF, HTN, CAD, PVD, carotid stenosis, diverticulitis, chronic pain (complicated with iatrogenic chronic constipation) , and spinal stenosis who presents to the ED from [place] ([facility]) for dark brown watery emesis x 3 since this AM. The m[facility] described it as coffee grounds but the patient states it was dark brown and watery. She states that the vomiting was secondary to burning stomach pain and nausea that typically happen when nursing attempts to give her a large burden of medication at the same time. She has had watery NB stools for the pat two days as she has been taking milk of magnesia (last BM this morning). She had an endoscopy 3 weeks prior (believes by a Dr. Damon) and is unsure of the results. She was admitted here one week prior for very similar complaints where her HgB appeared stable but abdominal CT demonstrated SBO that cleared without intervention. Her only complaint is slight nausea that she continuously attributes to the pill burden. She denies SOB, chest pain, palpitations, blood from any orifice, cough, fevers , chills, or other illness. 06/28/17 11:41 Past History - Past Medical History Allergies/Adverse Reactions: Allergies Allergy/AdvReac Type Severity Reaction Status Date / Time Penicillins Allergy Itching Verified 06/20/17 16:54 CATS Allergy Intermediate cough and Uncoded 06/20/17 16:54 wheezing. Home Medications: Ambulatory Orders Aa/Hydrolyzed Collagen, Whey [Lps Neutral Flavor Liquid] 30 ml PO BID 06/28/17 Acetaminophen [Tylenol] 650 mg PO Q6H PRN 06/28/17 Albuterol Sulfate Inhaler - [Ventolin Hfa Inhaler -] 1 inh PO Q4H PRN 06/28/17 Ascorbate Calcium [Vitamin C] 500 mg PO DAILY 06/28/17 Aspirin [Aspirin EC] 81 mg PO DAILY 06/28/17 Bethanechol Chloride [Urecholine -] 25 mg PO TID 06/28/17 Bisacodyl [Dulcolax] 10 mg RC Q24H PRN 06/28/17 Bismuth Tribromoph/Petrolatum [Xeroform Petrolatum Dress] 1 each TP ASDIR Budesonide/Formeterol Fumarate [SYMBICORT 160/4.5mcg -] 2 inh PO BID 06/28/17 Cholecalciferol (Vitamin D3) [Vitamin D] 2,000 unit PO DAILY 06/28/17 Enalapril Maleate 5 mg PO DAILY 06/28/17 Enoxaparin [Lovenox -] 40 mg SQ DAILY 06/28/17 Famotidine [Pepcid] 20 mg PO BID 06/28/17 Gabapentin 100 mg PO Q8H PRN 06/28/17 Magnesium Hydrox 2400MG/30Ml [Milk of Magnesia -] 30 ml PO Q24H PRN 06/28/17 Metoprolol Succinate [Toprol Xl] 25 mg PO DAILY 06/28/17 Multivitamin [One Daily] 1 each PO DAILY 06/28/17 Nicotine [Nicotine Patch] 1 each TD DAILY 06/28/17 Ondansetron Injection [Zofran Injection] 4 mg IVPB Q8H PRN 06/28/17 Oxycodone HCl 5 mg PO QID 06/28/17 Pantoprazole Sodium 40 mg PO AM 06/28/17 Spironolactone 25 mg PO DAILY 06/28/17 Tamsulosin HCl [Flomax] 0.4 mg PO HS 06/28/17 Tetracaine/Benzocaine/Butamben [Cetacaine [place] -] 1 spray TP Q4H PRN 06/28/17 Tiotropium [place] [Spiriva] 1 inh PO DAILY 06/28/17 Zinc Sulfate [Orazinc] 220 mg PO DAILY 06/28/17 Anemia: Yes Asthma: No Cancer: Yes (basal cell carcinoma) Cardiac Disorders: Yes (CAD) CVA: No COPD: Yes CHF: No Dementia: No Diabetes: No GI Disorders: Yes (diverticulitis) Disorders: No HTN: Yes Hypercholesterolemia: No Liver Disease: No Seizures: No Thyroid Disease: No - Surgical History Abdominal Surgery: Yes (resection/colostomy s/p reversal r/t diverticulitis) Appendectomy: No Cardiac Surgery: No Cholecystectomy: No GI Surgery: Yes (PARITAL COLECTOMY) Lung Surgery: No Neurologic Surgery: No Orthopedic Surgery: Yes - Suicide/Smoking/Psychosocial Hx Smoking History: Current every day smoker Have you smoked in the past 12 months: Yes Number of Cigarettes Smoked Daily: 9 If you are a former smoker, when did you quit?: n 'Breaking Loose' booklet given: 06/20/17 Hx Alcohol Use: Yes (5 glasses of whiskey per day prior to short term rehab placement) Drug/Substance Use Hx: No Substance Use Type: Alcohol Hx Substance Use Treatment: No Review of Systems - Review of Systems Constitutional: No: Chills, Diaphoresis, Fever HEENTM: No: Blurred Vision Respiratory: No: Cough, Shortness of Breath, Stridor Cardiac (ROS): No: Chest Pain, Irregular Heart Rate, Chest Tightness ABD/GI: Yes: Diarrhea, Nausea, Vomiting : No: Burning, Dysuria, Discharge Integumentary: No: Bruising, Erythema, Lesions Neurological: No: Headache, Numbness, Paresthesia *Physical Exam - Physical Exam General Appearance: Yes: Appropriately Dressed, Thin. No: Apparent Distress HEENT: positive: EOMI, ESTRELLITA, Normal ENT Inspection, Normal Voice Neck: positive: Trachea midline, Normal Thyroid, Supple. negative: Tender, Rigid Respiratory/Chest: positive: Lungs Clear, Normal Breath Sounds. negative: Chest Tender, Respiratory Distress, Accessory Muscle Use Cardiovascular: positive: Regular Rhythm, Irregular (Irregular rate) Gastrointestinal/Abdominal: positive: Flat, Soft, Increased Bowel Sounds, Other (Left lower quadrant fullness). negative: Normal Bowel Sounds, Tender Rectal Exam: positive: heme negative stool, normal exam, normal rectal tone Musculoskeletal: negative: Normal Inspection (Very weakened generally) Extremity: positive: Normal Capillary Refill, Normal Inspection. negative: Normal Range of Motion, Tender Integumentary: positive: Normal Color, Dry, Warm Neurologic: positive: Fully Oriented, Alert, Normal Mood/Affect, Normal Response. negative: Motor Strength 5/5 (globally weakned) ED Treatment Course - LABORATORY CBC & Chemistry Diagram: 06/28/17 11:45 06/28/17 11:45 - RADIOLOGY Radiology Studies Ordered: Category Date Time Status ABDOMEN [id number] [RAD] Stat Radiology 06/28/17 11:33 Ordered Medical Decision Making - Medical Decision Making 86 year old female coming from [facility] with nausea and vomiting for the past few hours after attempting to ingest her medications. Has some generalized epigastric pain but non-tender exam but with LLQ fullness (possible stool burden ). with hyperactive bowel sounds. NH originally reported coffee ground emesis but one episode of emesis here was dark brown with some particulate matter. No obvious source of bleed and HgB stable with negative stool occult blood. LFTs WNL, Lipase and cardiac profile pending. First EKG appears low voltage and unclear P-waves. Will repeat EKG and pending results will perform bedside cardiac ultrasound. Patient discussed with Dr. Loo and will admit under med-surg currently at with CT abdomen/ pelvis and some labs pending. 06/28/17 14:00 Repeat EKG showing sinus rhythm. Will keep medsurg admission. 06/28/17 14:16 *DC/Admit/Observation/Transfer Diagnosis at time of Disposition: Intractable nausea and vomiting Qualifiers: Vomiting type: unspecified Qualified Code(s): R11.2 - Nausea with vomiting, unspecified - Discharge Dispostion Condition at time of disposition: Stable Admit: Yes - Referrals - Patient Instructions - Post Discharge Activity
[2017-06-28] MEDS ORDERED: PANTOPRAZOLE SODIUM 40 MG VIAL IVPUSH ONE (11:46)
[2017-06-28] MEDS ORDERED: PANTOPRAZOLE SODIUM 40 MG VIAL ONE (11:51)
[2017-06-28] MEDS ORDERED: ONDANSETRON 4 MG/2 ML VIAL IVPUSH ONE (11:54)
[2017-06-28] MEDS ORDERED: ONDANSETRON 4 MG/2 ML VIAL ONE (12:18)
[2017-06-28 12:28] LABS: HEMOGLOBIN 11.5 GM/dl (10.7-15.3); MCHC 34.8 g/dl (32.0-36.0); MEAN CELL VOLUME 88.9 fl (80-96); MEAN PLT VOLUME 7.1 fl (7.5-11.1); PLATELET COUNT 438 K/MM3 (134-434); RBC 3.71 M/mm3 (3.60-5.2); RDW 17.4 % (11.6-15.6); WHITE BLOOD COUNT 10.6 K/mm3 (4.0-10.8)
[2017-06-28] MEDS ORDERED: morphine CARPU-JECT 2 MG/1 ML DISP.SYRIN IVPUSH ONE ×3 (12:31→17:17)
[2017-06-28] MEDS ORDERED: morphine CARPU-JECT 2 MG/1 ML DISP.SYRIN ONE ×2 (12:36→16:59)
[2017-06-28 12:37] LABS: INR 1.23 (0.82-1.09); PROTHROMBIN TIME (PATIENT) 13.7 SEC (10.2-13.0)
[2017-06-28 12:50] LABS: ALBUMIN 2.3 g/dl (3.5-5.0); ALK PHOS 107 U/L (32-92); ANION GAP 7 (8-16); BILIRUBIN,TOTAL 0.7 mg/dl (0.2-1.0); BLOOD UREA NITROGEN 13 mg/dl (7-18); CHLORIDE 100 mmol/L (98-107); CO2 22 mmol/L (22-28); CREATININE 0.6 mg/dl (0.6-1.3); GLUCOSE,RANDOM 112 mg/dl (74-106); POTASSIUM 3.6 mmol/L (3.5-5.1); SGOT/AST 21 U/L (10-42); SGPT/ALT 27 U/L (10-40); SODIUM 129 mmol/L (136-145); TOT PROT 5.1 g/dl (6.4-8.3)
[2017-06-28 13:56] LABS: URINE APPEARANCE Clear; URINE BILIRUBIN Negative (NEGATIVE); URINE BLOOD Negative (NEGATIVE); URINE GLUCOSE (UA) Negative (NEGATIVE); URINE KETONE Negative (NEGATIVE); URINE LEUK ESTERASE Negative (NEGATIVE); URINE NITRITE Negative (NEGATIVE); URINE PROTEIN Negative (NEGATIVE); URINE UROBILINOGEN 0.2 (0.2-1.0)
[2017-06-28 13:59] LABS: URINE COLOR DK YELLOW
[2017-06-28] MEDS ORDERED: ONDANSETRON 4 MG/2 ML VIAL IVPUSH PRN (13:59)
[2017-06-28] MEDS: SODIUM CHLORIDE 1,000 ML IV SCH (15:23)
[2017-06-28] MEDS ORDERED: HURRICAINE SP EXT TUBE 1 EA EACH TP ONE (15:50)
--- NOTE | 2017-06-28 17:31 | EKG ---
Test Reason : Blood Pressure : / mmHG Vent. Rate : 109 BPM Atrial Rate : 109 BPM P-R Int : 186 ms QRS Dur : 082 ms QT Int : 364 ms P-R-T Axes : 036 016 060 degrees QTc Int : 490 ms SINUS TACHYCARDIA SEPTAL INFARCT (CITED ON OR BEFORE 07-APR-2017) ABNORMAL ECG WHEN COMPARED WITH ECG OF 21-JUN-2017 14:32, PREMATURE ATRIAL COMPLEXES ARE NO LONGER PRESENT Confirmed by Roberto Falcon ([id number]) on 06/28/2017 5:30:43 PM Referred By: RALPH ALLEN Confirmed By:Roberto Falcon
[2017-06-28 17:54] LABS: ANISOCYTOSIS 1+; PLATELET ESTIMATE INCREASED
[2017-06-28 18:51] VITALS: BMI 23.7
[2017-06-28 19:30] LABS: HEMATOCRIT 30.4 % (32.4-45.2); HEMOGLOBIN 10.2 GM/dl (10.7-15.3); MCH 30.1 pg (25.7-33.7); MCHC 33.6 g/dl (32.0-36.0); MEAN CELL VOLUME 89.5 fl (80-96); MEAN PLT VOLUME 7.3 fl (7.5-11.1); PLATELET COUNT 439 K/MM3 (134-434); RBC 3.39 M/mm3 (3.60-5.2); RDW 19.5 % (11.6-15.6); WHITE BLOOD COUNT 10.1 K/mm3 (4.0-10.8)
[2017-06-28] MEDS: morphine CARPU-JECT 2 MG/1 ML DISP.SYRIN IVPUSH PRN (22:04)
--- NOTE | 2017-06-28 22:05 | HP ---
Admitting History and Physical - Primary Care Physician PCP: Jyoti Bravo (from [facility]) - Admission Chief Complaint: dark brown emesis History of Present Illness: This is a 86 y/o woman from [facility] sent in to the ED for evaluation of dark brown emesis x3 episodes this am. Patient reports having a "burning sensation" in her abdomen with episodes of non-bilious vomiting and watery stools. Patient denies fever, chills, cough, dizziness, SOB, CP. Patient was admitted recently for SBO (cleared without intervention) Per ED records, patient had an Endoscopy [address] Damon History Source: Medical Record, Transfer Record Limitations to Obtaining History: No Limitations - Past Medical History Cardiovascular: Yes: AFIB, CAD, CHF, HTN, Other (PVD) Pulmonary: Yes: COPD Gastrointestinal: Yes: Constipation (Iatrogenic chronic), Diverticulitis, Diverticulosis, GI Bleed ...: No Musculoskeletal: Yes: Other (spinal stenosis ) - Past Surgical History Past Surgical History: Yes: Colostomy (s/p reversal) Additional Past Surgical History: Abdominal Resection - Smoking History Smoking history: Current every day smoker Have you smoked in the past 12 months: Yes Aproximately how many cigarettes per day: 9 If you are a former smoker, when did you quit?: n - Alcohol/Substance Use Hx Alcohol Use: Yes (5 glasses of whiskey per day prior to short term rehab placement) History of Substance Use: reports: None - Social History Usual Living Arrangement: Yes: Retirement ADL: Support Services (bed bound- contracted) History of Recent Travel: No Home Medications - Allergies Allergies/Adverse Reactions: Allergies Allergy/AdvReac Type Severity Reaction Status Date / Time Penicillins Allergy Itching Verified 06/20/17 16:54 CATS Allergy Intermediate cough and Uncoded 06/20/17 16:54 wheezing. - Home Medications Home Medications: Ambulatory Orders Aa/Hydrolyzed Collagen, Whey [Lps Neutral Flavor Liquid] 30 ml PO BID 06/28/17 Acetaminophen [Tylenol] 650 mg PO Q6H PRN 06/28/17 Albuterol Sulfate Inhaler - [Ventolin Hfa Inhaler -] 1 inh PO Q4H PRN 06/28/17 Ascorbate Calcium [Vitamin C] 500 mg PO DAILY 06/28/17 Aspirin [Aspirin EC] 81 mg PO DAILY 06/28/17 Bethanechol Chloride [Urecholine -] 25 mg PO TID 06/28/17 Bisacodyl [Dulcolax] 10 mg RC Q24H PRN 06/28/17 Bismuth Tribromoph/Petrolatum [Xeroform Petrolatum Dress] 1 each TP ASDIR Budesonide/Formeterol Fumarate [SYMBICORT 160/4.5mcg -] 2 inh PO BID 06/28/17 Cholecalciferol (Vitamin D3) [Vitamin D] 2,000 unit PO DAILY 06/28/17 Enalapril Maleate 5 mg PO DAILY 06/28/17 Enoxaparin [Lovenox -] 40 mg SQ DAILY 06/28/17 Famotidine [Pepcid] 20 mg PO BID 06/28/17 Gabapentin 100 mg PO Q8H PRN 06/28/17 Magnesium Hydrox 2400MG/30Ml [Milk of Magnesia -] 30 ml PO Q24H PRN 06/28/17 Metoprolol Succinate [Toprol Xl] 25 mg PO DAILY 06/28/17 Multivitamin [One Daily] 1 each PO DAILY 06/28/17 Nicotine [Nicotine Patch] 1 each TD DAILY 06/28/17 Ondansetron Injection [Zofran Injection] 4 mg IVPB Q8H PRN 06/28/17 Oxycodone HCl 5 mg PO QID 06/28/17 Pantoprazole Sodium 40 mg PO AM 06/28/17 Spironolactone 25 mg PO DAILY 06/28/17 Tamsulosin HCl [Flomax] 0.4 mg PO HS 06/28/17 Tetracaine/Benzocaine/Butamben [Cetacaine [place] -] 1 spray TP Q4H PRN 06/28/17 Tiotropium [place] [Spiriva] 1 inh PO DAILY 06/28/17 Zinc Sulfate [Orazinc] 220 mg PO DAILY 06/28/17 Family Disease History - Family Disease History Family History: Unable to Obtain Review of Systems - Review of Systems Constitutional: reports: No Symptoms Eyes: reports: No Symptoms HENT: reports: No Symptoms Neck: reports: No Symptoms Cardiovascular: reports: No Symptoms Respiratory: reports: No Symptoms Gastrointestinal: reports: Abdominal Pain, Diarrhea (watery stool), Vomiting Genitourinary: reports: Incontinence Breasts: reports: No Symptoms Reported Musculoskeletal: reports: No Symptoms Integumentary: reports: No Symptoms Neurological: reports: No Symptoms Endocrine: reports: No Symptoms Hematology/Lymphatic: reports: No Symptoms Psychiatric: reports: No Symptoms Physical Examination Vital Signs: Vital Signs Temperature 97.4 F L 06/28/17 18:26 Pulse Rate 90 06/28/17 18:26 Respiratory Rate 20 06/28/17 18:26 Blood Pressure 123/42 06/28/17 18:26 O2 Sat by Pulse Oximetry (%) 98 06/28/17 18:26 Constitutional: Yes: Well Nourished, No Distress, Calm Eyes: Yes: WNL, Conjunctiva Clear, EOM Intact, PERRL HENT: Yes: Atraumatic, Normocephalic, Other (NGT to L- nare) Neck: Yes: WNL, Supple, Trachea Midline Cardiovascular: Yes: Regular Rate and Rhythm, Murmur, S1, S2 Respiratory: Yes: Diminished (bases) Gastrointestinal: Yes: Soft, Distention, Hyperactive Bowel Sounds ...Rectal Exam: Yes: WNL Renal/: Yes: [place] Present (yellow urine in drainage bag) Breast(s): Yes: WNL Extremities: Yes: Other (contracted) Peripheral Pulses WNL: Yes Neurological: Yes: WNL, Alert, Oriented, Cran Nerves II-XII Intact Psychiatric: Yes: WNL, Alert, Oriented Labs: CBC, BMP 06/28/17 18:40 06/28/17 11:45 Laboratory Results - last 24 hr 06/28/17 06/28/17 06/28/17 10:09 11:33 11:45 WBC 10.6 RBC 3.71 Hgb 11.5 Hct 33.0 MCV 88.9 MCH 31.0 MCHC 34.8 RDW 17.4 H D Plt Count 438 H MPV 7.1 L Neutrophils % No Result Required. Neutrophils % (Manual) 84.0 H Band Neutrophils % 4.0 Lymphocytes % No Result Required. Lymphocytes % (Manual) 7.0 L Monocytes % (Manual) 4 Eosinophils % (Manual) 1.0 Platelet Estimate Increased Anisocytosis 1+ PT with INR INR Sodium Potassium Chloride Carbon Dioxide Anion Gap BUN Creatinine Creat Clearance w eGFR Random Glucose Calcium Total Bilirubin AST ALT Alkaline Phosphatase Creatine Kinase Troponin I Total Protein Albumin Lipase Urine Color Dk yellow Urine Appearance Clear Urine pH 7.0 Ur Specific [place] 1.015 Urine Protein Negative Urine Glucose (UA) Negative Urine Ketones Negative Urine Blood Negative Urine Nitrite Negative Urine Bilirubin Negative Urine Urobilinogen 0.2 Ur Leukocyte Esterase Negative Stool Occult Blood Negative Blood Type Antibody Screen 06/28/17 06/28/17 06/28/17 11:45 11:45 11:45 WBC RBC Hgb Hct MCV MCH MCHC RDW Plt Count MPV Neutrophils % Neutrophils % (Manual) Band Neutrophils % Lymphocytes % Lymphocytes % (Manual) Monocytes % (Manual) Eosinophils % (Manual) Platelet Estimate Anisocytosis PT with INR 13.7 H INR 1.23 H Sodium 129 L Potassium 3.6 D Chloride 100 Carbon Dioxide 22 Anion Gap 7 L BUN 13 Creatinine 0.6 Creat Clearance w eGFR > 60 Random Glucose 112 H Calcium 8.0 L Total Bilirubin 0.7 D AST 21 ALT 27 Alkaline Phosphatase 107 H D Creatine Kinase Troponin I Total Protein 5.1 L Albumin 2.3 L Lipase Urine Color Urine Appearance Urine pH Ur Specific [place] Urine Protein Urine Glucose (UA) Urine Ketones Urine Blood Urine Nitrite Urine Bilirubin Urine Urobilinogen Ur Leukocyte Esterase Stool Occult Blood Blood Type O POSITIVE Antibody Screen Negative 06/28/17 06/28/17 06/28/17 14:00 14:02 14:02 WBC RBC Hgb Hct MCV MCH MCHC RDW Plt Count MPV Neutrophils % Neutrophils % (Manual) Band Neutrophils % Lymphocytes % Lymphocytes % (Manual) Monocytes % (Manual) Eosinophils % (Manual) Platelet Estimate Anisocytosis PT with INR INR Sodium Potassium Chloride Carbon Dioxide Anion Gap BUN Creatinine Creat Clearance w eGFR Random Glucose Calcium Total Bilirubin AST ALT Alkaline Phosphatase Creatine Kinase 29 Troponin I < 0.03 Total Protein Albumin Lipase 105 Urine Color Urine Appearance Urine pH Ur Specific [place] Urine Protein Urine Glucose (UA) Urine Ketones Urine Blood Urine Nitrite Urine Bilirubin Urine Urobilinogen Ur Leukocyte Esterase Stool Occult Blood Blood Type Antibody Screen 06/28/17 06/29/17 18:40 04:00 WBC 10.1 RBC 3.39 L Hgb 10.2 L D Hct 30.4 L MCV 89.5 MCH 30.1 MCHC 33.6 RDW 19.5 H D Plt Count 439 H MPV 7.3 L Neutrophils % Neutrophils % (Manual) Band Neutrophils % Lymphocytes % Lymphocytes % (Manual) Monocytes % (Manual) Eosinophils % (Manual) Platelet Estimate Anisocytosis PT with INR INR Sodium Potassium Chloride Carbon Dioxide Anion Gap BUN Creatinine Creat Clearance w eGFR Random Glucose Calcium Total Bilirubin AST ALT Alkaline Phosphatase Creatine Kinase Troponin I Total Protein Albumin Lipase Urine Color Yellow Urine Appearance Clear Urine pH 6.0 Ur Specific [place] 1.006 Urine Protein Negative Urine Glucose (UA) Negative Urine Ketones Negative Urine Blood Negative Urine Nitrite Negative Urine Bilirubin Negative Urine Urobilinogen Negative Ur Leukocyte Esterase Negative Stool Occult Blood Blood Type Antibody Screen Intake & Output 06/26/17 06/27/17 06/28/17 06/29/17 23:59 23:59 23:59 23:59 Intake Total 0 Output Total 100 Balance -100 Weight 60.781 kg Imaging - Results Chest X-ray: Report Reviewed, Image Reviewed Cat Scan: Report Reviewed (CTAP showed- small bilateral pleurl effusions, slight increase in dilated bowel loops throughout abdomen and pelvis. Partial SBO), Image Reviewed EKG: Image Reviewed (Sinus Tachycardia 109bpm, septal infarct age undetermined) Problem List - Problems (1) Bowel obstruction Code(s): K56.609 - UNSP INTESTNL OBST, UNSP TO PARTIAL VERSUS COMPLETE OBST (2) Coffee ground emesis Code(s): K92.0 - HEMATEMESIS (3) Acute urinary retention Code(s): R33.8 - OTHER RETENTION OF URINE (4) COPD (chronic obstructive pulmonary disease) Code(s): J44.9 - CHRONIC OBSTRUCTIVE PULMONARY DISEASE, UNSPECIFIED (5) Congestive heart failure Code(s): I50.9 - HEART FAILURE, UNSPECIFIED Qualifiers: Congestive heart failure type: unspecified congestive heart failure type (6) Coronary artery disease Code(s): I25.10 - ATHSCL HEART DISEASE OF [place] CORONARY ARTERY W/O ANG PCTRS Qualifiers: Coronary Disease-Associated Artery/Lesion type: [place] artery [place] vs. transplanted heart: [place] heart Associated angina: without angina Qualified Code(s): I25.10 - Atherosclerotic heart disease of [place] coronary artery without angina pectoris (7) Hypertension Code(s): I10 - ESSENTIAL (PRIMARY) HYPERTENSION (8) Microcytic anemia Code(s): D50.9 - IRON DEFICIENCY ANEMIA, UNSPECIFIED (9) Functional quadriplegia Code(s): R53.2 - FUNCTIONAL QUADRIPLEGIA (10) DVT prophylaxis Code(s): [id number] - Assessment/Plan This is a 86 y/o woman from the [facility] with a PMHx of: HTN, CHF, CAD, PVD, COPD, Carotid Stenosis, Diverticulitis, Chronic Pain, Iatrogenic Chronic Constipation, Spinal Stenosis. Admitted to M/S for Bowel Obstruction, UGI Bleed Plan: GI: Bowel Obstruction UGI Bleed CTAP- partial SBO NPO NGT low wall suction Appreciate Surgical Consult Consider GI if condition worsens Monitor CBC, BMP Gentle IVF- concern for fluid overload Zofran prn Morphine Sulfate prn PPI Monitor vitals Stool Occult- negative Card: HTN CHF CAD PVD Monitor BP Continue home meds via G-tube Chest Xray- no acute pathology Musculoskeletal: Functional Quadriplegia Continue home meds Fall Precautions Turn Q2h- bed bound with contractures PROM F/E/N NS@30ml/hr Replete lytes prn NPO DVT/PPI Prophylaxis SCDs Protonix Code Status: Full Code Dispo: Requires Inpatient Care Visit type - Emergency Visit Emergency Visit: Yes ED Registration Date: 06/28/17 Care time: The patient presented to the Emergency Department on the above date and was hospitalized for further evaluation of their emergent condition. - New Patient This patient is new to me today: Yes Date on this admission: 06/28/17 - Critical Care Critical Care patient: No
[2017-06-29 04:15] LABS: URINE APPEARANCE CLEAR; URINE BILIRUBIN NEGATIVE (NEGATIVE); URINE BLOOD NEGATIVE (NEGATIVE); URINE COLOR YELLOW; URINE GLUCOSE (UA) NEGATIVE (NEGATIVE); URINE KETONE NEGATIVE (NEGATIVE); URINE LEUK ESTERASE NEGATIVE (NEGATIVE); URINE NITRITE NEGATIVE (NEGATIVE); URINE PROTEIN NEGATIVE (NEGATIVE); URINE UROBILINOGEN NEGATIVE mg/dL (0.2-1.0)
[2017-06-29] MEDS: morphine CARPU-JECT 2 MG/1 ML DISP.SYRIN IVPUSH PRN ×3 (06:05→21:13)
[2017-06-29 09:03] LABS: ANION GAP 8 (8-16); BLOOD UREA NITROGEN 13 mg/dl (7-18); CALCIUM 7.8 mg/dl (8.4-10.2); CHLORIDE 103 mmol/L (98-107); CO2 20 mmol/L (22-28); CREATININE 0.6 mg/dl (0.6-1.3); GLUCOSE,RANDOM 78 mg/dl (74-106); POTASSIUM 3.6 mmol/L (3.5-5.1); SODIUM 131 mmol/L (136-145)
[2017-06-29] MEDS: PANTOPRAZOLE SODIUM 40 MG VIAL IVPUSH SCH (10:05)
--- NOTE | 2017-06-29 10:21 | CONSULT ---
- Consultation REQUESTING PROVIDER: CONSULT REQUEST: We have been asked to surgically evaluate this patient for SBO. PCP:Esperanza Crandall HISTORY OF PRESENT ILLNESS: The patient states that she had taken some pills and then had vomiting(coffee ground). She denies any abd pain and her nausea has resolved. She recalls passing flatus and has a recorded bowel movement in the nursing notes. The patient is non-ambulatory and uses chronic pain medications every 4 hours for her spinal stenosis pain. Every 5 days she uses laxative to assist with a bowel movement. She last recalls a bowel movment 3 to 4 days ago. Pt was found to have urinary retention and a gee cath was placed upon admission. PMHx: HTN, constipation uses laxative every 5 days to have bowel movement, spinal stenosis-nonambulatory with parasthesias, AF, diverticular disease, stomach angioectasia PSHx: partial colon resection for diverticular disease, right hip replacment Home Medications Medication Instructions Recorded Aa/Hydrolyzed Collagen, Whey [Lps 30 ml PO BID 06/28/17 Neutral Flavor Liquid] Acetaminophen [Tylenol] 650 mg PO Q6H PRN 06/28/17 Albuterol Sulfate Inhaler - 1 inh PO Q4H PRN 06/28/17 [Ventolin Hfa Inhaler -] Ascorbate Calcium [Vitamin C] 500 mg PO DAILY 06/28/17 Aspirin [Aspirin EC] 81 mg PO DAILY 06/28/17 Bethanechol Chloride [Urecholine -] 25 mg PO TID 06/28/17 Bisacodyl [Dulcolax] 10 mg RC Q24H PRN 06/28/17 Bismuth Tribromoph/Petrolatum 1 each TP ASDIR 06/28/17 [Xeroform Petrolatum Dress] Budesonide/Formeterol Fumarate 2 inh PO BID 06/28/17 [SYMBICORT 160/4.5mcg -] Cholecalciferol (Vitamin D3) 2,000 unit PO DAILY 06/28/17 [Vitamin D] Enalapril Maleate 5 mg PO DAILY 06/28/17 Enoxaparin [Lovenox -] 40 mg SQ DAILY 06/28/17 Famotidine [Pepcid] 20 mg PO BID 06/28/17 Gabapentin 100 mg PO Q8H PRN 06/28/17 Magnesium Hydrox 2400MG/30Ml [Milk 30 ml PO Q24H PRN 06/28/17 of Magnesia -] Metoprolol Succinate [Toprol Xl] 25 mg PO DAILY 06/28/17 Multivitamin [One Daily] 1 each PO DAILY 06/28/17 Nicotine [Nicotine Patch] 1 each TD DAILY 06/28/17 Ondansetron Injection [Zofran 4 mg IVPB Q8H PRN 06/28/17 Injection] Oxycodone HCl 5 mg PO QID 06/28/17 Pantoprazole Sodium 40 mg PO AM 06/28/17 Spironolactone 25 mg PO DAILY 06/28/17 Tamsulosin HCl [Flomax] 0.4 mg PO HS 06/28/17 Tetracaine/Benzocaine/Butamben 1 spray TP Q4H PRN 06/28/17 [Cetacaine Hibbs -] Tiotropium [place] [Spiriva] 1 inh PO DAILY 06/28/17 Zinc Sulfate [Orazinc] 220 mg PO DAILY 06/28/17 Allergies Allergy/AdvReac Type Severity Reaction Status Date / Time Penicillins Allergy Itching Verified 06/20/17 16:54 CATS Allergy Intermediate cough and Uncoded 06/20/17 16:54 wheezing. REVIEW OF SYSTEMS: CONSTITUTIONAL: Absent: fever, chills CARDIOVASCULAR: Absent: chest pain, palpitations RESPIRATORY: Absent: cough, shortness of breath GASTROINTESTINAL: Absent: abdominal pain, abdominal distension Present: nausea and emesis(resolved ) MUSCULOSKELETAL: Absent: contracted lower ext NEUROLOGIC: present: paresthesias to lower ext PHYSICAL EXAM: GENERAL: Awake, alert, and fully oriented, in no acute distress. HEAD: Normal with no signs of trauma. NGT inplace, confirmed placement with auscultation. NGT flushed with NS, light brown fluid returned. 200ml outpt in canister ABDOMEN: Soft, nontender, not distended, flat. Healed midline scar. No masses LOWER EXTREMITIES: contrasted b/l LE. No calf tenderness. No peripheral edema. Vital Signs Temperature 98.3 F 06/29/17 06:32 Pulse Rate 103 H 06/29/17 06:32 Respiratory Rate 20 06/29/17 08:45 Blood Pressure 110/45 06/29/17 06:32 O2 Sat by Pulse Oximetry (%) 100 06/29/17 08:45 Lab Results WBC 10.1 K/mm3 (4.0-10.8) 06/28/17 18:40 RBC 3.39 M/mm3 (3.60-5.2) L 06/28/17 18:40 Hgb 10.2 GM/dl (10.7-15.3) L D 06/28/17 18:40 Hct 30.4 % (32.4-45.2) L 06/28/17 18:40 MCV 89.5 fl (80-96) 06/28/17 18:40 MCHC 33.6 g/dl (32.0-36.0) 06/28/17 18:40 RDW 19.5 % (11.6-15.6) H D 06/28/17 18:40 Plt Count 439 K/MM3 (134-434) H 06/28/17 18:40 Sodium 131 mmol/L (136-145) L 06/29/17 08:15 Potassium 3.6 mmol/L (3.5-5.1) 06/29/17 08:15 Chloride 103 mmol/L (98-107) 06/29/17 08:15 Carbon Dioxide 20 mmol/L (22-28) L 06/29/17 08:15 Anion Gap 8 (8-16) 06/29/17 08:15 BUN 13 mg/dl (7-18) 06/29/17 08:15 Creatinine 0.6 mg/dl (0.6-1.3) 06/29/17 08:15 Random Glucose 78 mg/dl (74-106) D 06/29/17 08:15 Calcium 7.8 mg/dl (8.4-10.2) L 06/29/17 08:15 Blood Type O POSITIVE 06/28/17 11:45 Antibody Screen Negative 06/28/17 11:45 INR 1.23 (0.82-1.09) H 06/28/17 11:45 CT scan: increase in SB dilatation with A/f levels as compared to 06/21/2017 study AXR: A/f levels with gas in the colon A/p: 86 yo female with h/o of surgery and chronic constipation secondary to narcotic use. Pt with radiographic evidence of PSBO and having bowel movements Recommend to continue ngt decompression and correct any electrolyte imbalances as needed repeat abd xray in the am IV hydration D/w Dr. Coffman and surgery to follow the patient Visit type - Case Type Case Type: ED Admission - Emergency Emergency Visit: Yes ED Registration Date: 06/28/17 Care time: The patient presented to the Emergency Department on the above date and was hospitalized for further evaluation of their emergent condition. - New patient This patient is new to me today: Yes Date on this admission: 06/29/17
[2017-06-29] MEDS ORDERED: ACETAMINOPHEN 1000 MG/100 ML VIAL (NON FORMULARY) IVPB ONE (14:39)
[2017-06-29] MEDS: SODIUM CHLORIDE 1,000 ML IV SCH (14:45)
--- NOTE | 2017-06-29 15:08 | PN ---
Physical Exam: SUBJECTIVE: Patient seen and examined, reports ongoing lower back discomfort, denies any abdominal pain, does report a bowel movement yesterday evening. OBJECTIVE: patient is a 86 y/o female with a past medical history of paroxysmal afib, copd, pvd, diverticulitis (colectomy), and upper GI Bleed. patient was admitted from the emergency department for a SBO Vital Signs Period Temp Pulse Resp BP Sys/Ornelas Pulse Ox Last 24 Hr 97.4 F-98.4 F 85-103 16-20 106-123/42-69 95-100 GENERAL: The patient is awake, alert, and fully oriented, in no acute distress. HEAD: Normal with no signs of trauma. EYES: PERRL, extraocular movements intact, sclera anicteric, conjunctiva clear. No ptosis. ENT: Ears normal, nares patent, oropharynx clear without exudates, moist mucous membranes. NECK: Trachea midline, full range of motion, supple. LUNGS: Breath sounds equal, course rhonchi bilateral throughout, diminished to the bases, no wheezes, no crackles, no accessory muscle use. HEART: Regular rate and rhythm, S1, S2 without murmur, rub or gallop. ABDOMEN: Soft, ngt 200ml of drainage, nontender, nondistended, + hypoactive bowel sounds, no guarding, no rebound, no hepatosplenomegaly, no masses. : clear yellow urine EXTREMITIES: 2+ pulses, warm, no edema. contracted lower extremities, venous stasis changes bilateraly healing laceration to the distal left lower extremity. NEUROLOGICAL: Cranial nerves II through XII grossly intact. Normal speech, gait not observed. PSYCH: Normal mood, normal affect. SKIN: Warm, dry, normal turgor, no rashes or lesions noted Laboratory Results - last 24 hr 06/28/17 06/28/17 06/28/17 11:45 14:00 14:02 WBC RBC Hgb Hct MCV MCH MCHC RDW Plt Count MPV Neutrophils % (Manual) 84.0 H Band Neutrophils % 4.0 Lymphocytes % (Manual) 7.0 L Monocytes % (Manual) 4 Eosinophils % (Manual) 1.0 Platelet Estimate Increased Anisocytosis 1+ Sodium Potassium Chloride Carbon Dioxide Anion Gap BUN Creatinine Random Glucose Calcium Troponin I < 0.03 Lipase 105 Urine Color Urine Appearance Urine pH Ur Specific [place] Urine Protein Urine Glucose (UA) Urine Ketones Urine Blood Urine Nitrite Urine Bilirubin Urine Urobilinogen Ur Leukocyte Esterase 06/28/17 06/29/17 06/29/17 18:40 04:00 08:15 WBC 10.1 RBC 3.39 L Hgb 10.2 L D Hct 30.4 L MCV 89.5 MCH 30.1 MCHC 33.6 RDW 19.5 H D Plt Count 439 H MPV 7.3 L Neutrophils % (Manual) Band Neutrophils % Lymphocytes % (Manual) Monocytes % (Manual) Eosinophils % (Manual) Platelet Estimate Anisocytosis Sodium 131 L Potassium 3.6 Chloride 103 Carbon Dioxide 20 L Anion Gap 8 BUN 13 Creatinine 0.6 Random Glucose 78 D Calcium 7.8 L Troponin I Lipase Urine Color Yellow Urine Appearance Clear Urine pH 6.0 Ur Specific [place] 1.006 Urine Protein Negative Urine Glucose (UA) Negative Urine Ketones Negative Urine Blood Negative Urine Nitrite Negative Urine Bilirubin Negative Urine Urobilinogen Negative Ur Leukocyte Esterase Negative Active Medications Generic Name Dose Route Start Last Admin Trade Name Freq PRN Reason Stop Dose Admin Sodium Chloride 1,000 mls @ 75 mls/hr 06/28/17 14:00 06/29/17 14:45 Normal Saline - IV 75 mls/hr ASDIR MUKUND Administration Morphine Sulfate 2 mg 06/28/17 21:51 06/29/17 06:05 Morphine Injection - IVPUSH 2 mg Q6H PRN Administration PAIN LEVEL 6-10 Ondansetron HCl 4 mg 06/28/17 13:59 Zofran Injection IVPUSH Q6H PRN NAUSEA Pantoprazole Sodium 40 mg 06/29/17 10:00 06/29/17 10:05 Protonix Iv IVPUSH 40 mg DAILY MUKUND Administration IMAGING ct of abd/pelvis: worsening partial sbo abd xray kub/flat:06/29/17, SBO ASSESSMENT/PLAN: 1) GI: Bowel Obstruction - repeat abd xray reviewed ongoing sbo continue ngt - surgery (Meghna) consulted and following - repeat abd xray tomm 2) cardiovascular hypertension - no home medications b/p at goal, strict mentoring diastolic congestive heart failure - pt appears euvolemic, strict i/o and daily weights paroxysmal afib - not on AC, NSR at this time, strict monitoirng 3) MS spinal stenosis -PT eval - prn morphine - air flow mattress F/E/N NS@30ml/hr Replete lytes prn NPO DVT/PPI Prophylaxis SCDs Protonix Code Status: Full Code Dispo: Requires Inpatient Care Visit type - Emergency Visit Emergency Visit: Yes ED Registration Date: 06/28/17 Care time: The patient presented to the Emergency Department on the above date and was hospitalized for further evaluation of their emergent condition. - New Patient This patient is new to me today: Yes Date on this admission: 06/29/17 - Critical Care Critical Care patient: No - Discharge Referral Referred to [facility] Med P.C.: No
[2017-06-29] MEDS ORDERED: ALBUTEROL SO4 0.083% IH SOL 2.5 MG/3 ML VIAL.NEB. NEB PRN (15:14)
[2017-06-29] MEDS: ENOXAPARIN NA (PORCINE) 40 MG/0.4 ML DISP.SYRIN SQ SCH (15:39)
[2017-06-30] MEDS: morphine CARPU-JECT 2 MG/1 ML DISP.SYRIN IVPUSH PRN ×4 (03:31→23:18)
--- NOTE | 2017-06-30 07:24 | PN ---
Progress Note (short form) - Note Progress Note: 86 yo female well know to Surgery Service, readmitted after recent discharge for distal SBO/chronic constipation. Currently, resting comfortably without complaint. NGT is in place on [facility]. Since admit to hospital, shes passing flatus and had multiple soft bm's. Yesterdays AXR shows multiple AFLs. Denies n/v/f/c, CP, SOB, LATHAM, palpitations, dizzy or weak. Last Vital Signs Temp Pulse Resp BP Pulse Ox 97.8 F 88 18 135/56 100 06/30/17 06:19 06/30/17 06:19 06/30/17 06:19 06/30/17 06:19 06/30/17 06:19 Gen: alert. nad ENT: ngt 300mL/24h, 0mL recorded this morning Pulm: cta bilat anteriorly Cor: rrr Abd: Soft. nt. nd. hypoactive bowel sounds in all quadrants : gee > 30mL/hr (clear) Problem List - Problems (1) Bowel obstruction Assessment/Plan: Patient w/ SBO as identified on CT guidry and AXR. Avoid narcotic pain meds as she has a history of constipation (most likely associated with chronic opioid use). AXR ordered as a comparative study --> if study shows improvement...can start clear liquids Cont ngt Possible dc gee and TOV GI / DVT ppx Monitor elytes and correct as necessary Code(s): K56.609 - UNSP INTESTNL OBST, UNSP TO PARTIAL VERSUS COMPLETE OBST (2) Constipation Code(s): K59.00 - CONSTIPATION, UNSPECIFIED
--- NOTE | 2017-06-30 08:57 | PN ---
Progress Note (short form) - Note Progress Note: Attending Surgeon Seen and evaluated; concur w/ a/p as outlined by MARY LOU Coffman MD FACS
[2017-06-30] MEDS: PANTOPRAZOLE SODIUM 40 MG VIAL IVPUSH SCH (09:19)
[2017-06-30] MEDS: ENOXAPARIN NA (PORCINE) 40 MG/0.4 ML DISP.SYRIN SQ SCH (09:21)
[2017-06-30 11:04] LABS: HEMOGLOBIN 9.9 GM/dl (10.7-15.3)
[2017-06-30 11:30] LABS: ANION GAP 10 (8-16); BLOOD UREA NITROGEN 13 mg/dl (7-18); CALCIUM 7.7 mg/dl (8.4-10.2); CHLORIDE 108 mmol/L (98-107); CO2 16 mmol/L (22-28); GLUCOSE,RANDOM 63 mg/dl (74-106); POTASSIUM 3.6 mmol/L (3.5-5.1); SODIUM 134 mmol/L (136-145)
[2017-06-30 11:32] LABS: HEMATOCRIT 29.8 % (32.4-45.2); MCH 30.1 pg (25.7-33.7); MCHC 33.2 g/dl (32.0-36.0); MEAN CELL VOLUME 90.7 fl (80-96); MEAN PLT VOLUME 7.1 fl (7.5-11.1); PLATELET COUNT 402 K/MM3 (134-434); RBC 3.29 M/mm3 (3.60-5.2); RDW 16.7 % (11.6-15.6); WHITE BLOOD COUNT 9.2 K/mm3 (4.0-10.8)
[2017-06-30 11:54] LABS: CREATININE 0.6 mg/dl (0.6-1.3)
--- NOTE | 2017-06-30 12:38 | PN ---
Physical Exam: SUBJECTIVE: Patient seen and examined, reports generalized bodyaches denies any abd pain or vomiting, reports flatus, small bm yesterday OBJECTIVE: patient is a 86 y/o female with a past medical history of paroxysmal afib, copd, pvd, diverticulitis (colectomy), and upper GI Bleed. patient was admitted from the emergency department for a SBO Vital Signs Period Temp Pulse Resp BP Sys/Ornelas Pulse Ox Last 24 Hr 97.8 F-98.4 F 86-96 18-20 118-135/43-56 97-100 GENERAL: The patient is awake, alert, and fully oriented, in no acute distress. HEAD: Normal with no signs of trauma. EYES: PERRL, extraocular movements intact, sclera anicteric, conjunctiva clear. No ptosis. ENT: Ears normal, nares patent, oropharynx clear without exudates, moist mucous membranes. NECK: Trachea midline, full range of motion, supple. LUNGS: Breath sounds equal, course rhonchi bilateral throughout, diminished to the bases, no wheezes, no crackles, no accessory muscle use. HEART: Regular rate and rhythm, S1, S2 without murmur, rub or gallop. ABDOMEN: Soft, ngt 200ml of drainage, nontender, nondistended, + hypoactive bowel sounds, no guarding, no rebound, no hepatosplenomegaly, no masses. : clear yellow urine EXTREMITIES: 2+ pulses, warm, no edema. contracted lower extremities, venous stasis changes bilateraly healing laceration to the distal left lower extremity. NEUROLOGICAL: Cranial nerves II through XII grossly intact. Normal speech, gait not observed. PSYCH: Normal mood, normal affect. SKIN: Warm, dry, normal turgor, no rashes or lesions noted Laboratory Results - last 24 hr 06/30/17 06/30/17 08:00 10:46 WBC 9.2 RBC 3.29 L Hgb 9.9 L Hct 29.8 L MCV 90.7 MCH 30.1 MCHC 33.2 RDW 16.7 H D Plt Count 402 MPV 7.1 L Sodium 134 L Potassium 3.6 Chloride 108 H Carbon Dioxide 16 L Anion Gap 10 BUN 13 Creatinine 0.6 Random Glucose 63 L Calcium 7.7 L Active Medications Generic Name Dose Route Start Last Admin Trade Name Freq PRN Reason Stop Dose Admin Albuterol Sulfate 1 amp 06/29/17 15:14 Ventolin 0.083% Nebulizer Soln - NEB Q4H PRN SHORT OF BREATH/WHEEZING Enoxaparin Sodium 40 mg 06/29/17 15:30 06/30/17 09:21 Lovenox - SQ 40 mg DAILY MUKUND Administration Sodium Chloride 1,000 mls @ 75 mls/hr 06/28/17 14:00 06/29/17 14:45 Normal Saline - IV 75 mls/hr ASDIR MUKUND Administration Morphine Sulfate 2 mg 06/28/17 21:51 06/30/17 09:19 Morphine Injection - IVPUSH 2 mg Q6H PRN Administration PAIN LEVEL 6-10 Ondansetron HCl 4 mg 06/28/17 13:59 Zofran Injection IVPUSH Q6H PRN NAUSEA Pantoprazole Sodium 40 mg 06/29/17 10:00 06/30/17 09:19 Protonix Iv IVPUSH 40 mg DAILY MUKUND Administration IMAGING ct of abd/pelvis: worsening partial sbo abd xray kub/flat:06/29/17, SBO ASSESSMENT/PLAN: 1) GI: Bowel Obstruction - pending repeat abd xray today - surgery (Meghna) consulted and following - continue ngt 2) cardiovascular hypertension - no home medications b/p at goal, strict mentoring diastolic congestive heart failure - pt appears euvolemic, strict i/o and daily weights paroxysmal afib - not on AC, NSR at this time, strict monitoirng 3) MS spinal stenosis -PT eval - prn morphine - air flow mattress F/E/N NS@ 75 ml/hr Replete lytes prn NPO DVT/PPI Prophylaxis SCDs Protonix Code Status: Full Code Dispo: Requires Inpatient Care Visit type - Emergency Visit Emergency Visit: Yes ED Registration Date: 06/28/17 Care time: The patient presented to the Emergency Department on the above date and was hospitalized for further evaluation of their emergent condition. - New Patient This patient is new to me today: No - Critical Care Critical Care patient: No - Discharge Referral Referred to [facility] Med P.C.: No
[2017-06-30] MEDS ORDERED: morphine CARPU-JECT 2 MG/1 ML DISP.SYRIN IVPUSH ONE (13:34)
[2017-06-30] MEDS ORDERED: SODIUM CHLORIDE 0.9%/KCL 20 MEQ/1,000 ML INFUS.BAG IV SCH (14:30)
[2017-07-01] MEDS ORDERED: KETOROLAC TROMETHAMINE 30 MG/1 ML VIAL IVPUSH ONE (08:00)
--- NOTE | 2017-07-01 08:09 | PN ---
Progress Note (short form) - Note Progress Note: Attending Surgeon No c/o; passing flatus VSS AF abdomen-soft; flat and non tender AXR's-no evidence of obstruction IMP: improved PLAN: Clear liquid diet and advance as tolerated. José Miguel Coffman MD FACS
[2017-07-01] MEDS ORDERED: PT OWN MED DRAWER 7, Y5N ONE ×3 (09:26→21:08)
[2017-07-01] MEDS: ZINC SULFATE 220 MG CAPSULE (FP) PO SCH (09:29)
[2017-07-01] MEDS: ASPIRIN COATED 81 MG TABLET.EC PO SCH (09:29)
[2017-07-01] MEDS: ASCORBIC ACID 500 MG TABLET (FP) PO SCH (09:29)
[2017-07-01] MEDS: MULTIVITAMINS (DAILY MVI) TABLET (FP) PO SCH (09:29)
[2017-07-01] MEDS: NICOTINE 14 MG/24 HOURS TOPICAL PATCH TD SCH (09:36)
[2017-07-01] MEDS: TIOTROPIUM BROMIDE 18 MCG/INH (DEVICE W/ 5 CAPSULES) IH SCH (09:36)
[2017-07-01] MEDS: ENOXAPARIN NA (PORCINE) 40 MG/0.4 ML DISP.SYRIN SQ SCH (09:36)
[2017-07-01] MEDS: ENALAPRIL MALEATE 5 MG TABLET (FP) PO SCH (09:37)
[2017-07-01] MEDS: metoPROLOL SUCCINATE 25 MG TAB.SR.24H (FP) PO SCH (09:37)
[2017-07-01] MEDS: CHOLECALCIFEROL (VITAMIN D3) 1,000 UNIT TABLET (FP) PO SCH (09:37)
[2017-07-01] MEDS: GABAPENTIN 100 MG CAPSULE (FP) PO SCH ×3 (09:38→21:18)
[2017-07-01] MEDS: SPIRONOLACTONE 25 MG TABLET (FP) PO SCH (09:38)
--- NOTE | 2017-07-01 13:15 | PN ---
Physical Exam: SUBJECTIVE: Patient seen and examined, reports back pain, denies any abdominal pain or nausea, reports feeling hungry OBJECTIVE: patient is a 86 y/o female with a past medical history of paroxysmal afib, copd , pvd, diverticulitis (colectomy), and upper GI Bleed. patient was admitted from the emergency department for recurrent SBO Vital Signs Period Temp Pulse Resp BP Sys/Ornelas Pulse Ox Last 24 Hr 97.8 F-98.3 F 84-106 16-20 118-123/39-72 96-100 GENERAL: The patient is awake, alert, and fully oriented, in no acute distress. HEAD: Normal with no signs of trauma. EYES: PERRL, extraocular movements intact, sclera anicteric, conjunctiva clear. No ptosis. ENT: Ears normal, nares patent, oropharynx clear without exudates, moist mucous membranes. NECK: Trachea midline, full range of motion, supple. LUNGS: Breath sounds equal, clear to auscultation bilaterally, no wheezes, no crackles, no accessory muscle use. HEART: Regular rate and rhythm, S1, S2 without murmur, rub or gallop. ABDOMEN: Soft, nontender, nondistended, hypoactive bowel sounds, no guarding, no rebound, no hepatosplenomegaly, no masses. EXTREMITIES: 2+ pulses, warm, contracte lower extremities. warm, venous stasis changes, no edema. healing laceration to the left lower extremity, no erythema is noted NEUROLOGICAL: Cranial nerves II through XII grossly intact. Normal speech, gait not observed. PSYCH: Normal mood, normal affect. SKIN: Warm, dry, normal turgor, no rashes or lesions noted Active Medications Generic Name Dose Route Start Last Admin Trade Name Freq PRN Reason Stop Dose Admin Albuterol Sulfate 1 amp 06/29/17 15:14 Ventolin 0.083% Nebulizer Soln - NEB Q4H PRN SHORT OF BREATH/WHEEZING Ascorbic Acid 500 mg 07/01/17 10:00 07/01/17 09:29 Vitamin C - PO 500 mg DAILY MUKUND Administration Aspirin 81 mg 07/01/17 10:00 07/01/17 09:29 Ecotrin - PO 81 mg DAILY MUKUND Administration Bethanechol Chloride 25 mg 07/01/17 14:00 Urecholine - PO TID MUKUND Cholecalciferol 2,000 unit 07/01/17 10:00 07/01/17 09:37 Vitamin D3 - PO 2,000 unit DAILY [facility] Administration Enalapril Maleate 5 mg 07/01/17 10:00 07/01/17 09:37 Vasotec - PO 5 mg DAILY MUKUND Administration Enoxaparin Sodium 40 mg 06/29/17 15:30 07/01/17 09:36 Lovenox - SQ 40 mg DAILY MUKUND Administration Gabapentin 100 mg 07/01/17 08:45 07/01/17 09:38 Neurontin - PO 100 mg TID [facility] Administration Potassium Chloride/Sodium Chloride 20 meq in 1,000 mls @ 75 mls/hr 06/30/17 14 :30 06/30/17 14:35 Ns+20 Meq Kcl - IV 75 mls/hr ASDIR [facility] Administration Metoprolol Succinate 25 mg 07/01/17 10:00 07/01/17 09:37 Toprol Xl - PO 25 mg DAILY [facility] Administration Morphine Sulfate 2 mg 06/28/17 21:51 06/30/17 23:18 Morphine Injection - IVPUSH 2 mg Q6H PRN Administration PAIN LEVEL 6-10 Multivitamins/Minerals/Vitamin C 1 tab 07/01/17 10:00 07/01/17 09:29 Tab-A-Vit - PO 1 tab DAILY [facility] Administration Nicotine 14 mg 07/01/17 10:00 07/01/17 09:36 Nicoderm Patch - TD 14 mg DAILY [facility] Administration Ondansetron HCl 4 mg 06/28/17 13:59 Zofran Injection IVPUSH Q6H PRN NAUSEA Pantoprazole Sodium 40 mg 07/02/17 07:00 Protonix - PO AM [facility] Spironolactone 25 mg 07/01/17 10:00 07/01/17 09:38 Aldactone - PO 25 mg DAILY [facility] Administration Tamsulosin HCl 0.4 mg 07/01/17 22:00 Flomax - PO HS [facility] Tiotropium [place] 1 puff 07/01/17 10:00 07/01/17 09:36 Spiriva - IH 1 puff DAILY [facility] Administration Zinc Sulfate 220 mg 07/01/17 10:00 07/01/17 09:29 Orazinc - PO 220 mg DAILY MUKUND Administration Microbiology 06/28/17 13:01 Urine - Urine Clean Catch Urine Culture - Final NO GROWTH OBTAINED IMAGING ct of abd/pelvis: worsening partial sbo abd xray kub/flat:06/29/17, SBO ASSESSMENT/PLAN: 1) GI: Bowel Obstruction - resolved, repeat abd xray, 06/30/17, no evidence of obstruction, d/c ngt, start clear liquids advance as tolerated - surgery (Meghna) consulted and following 2) cardiovascular hypertension - vasotec and toprol, b/p at goal, strict mentoring diastolic congestive heart failure - pt appears euvolemic, strict i/o and daily weights paroxysmal afib - not on AC, NSR at this time, strict monitoirng 3) MS spinal stenosis -PT eval - prn oxycodone - air flow mattress F/E/N hyponatremia - improving secondary to SBO continue IVF ivf Replete lytes prn clear liquids DVT/PPI Prophylaxis SCDs Protonix Code Status: Full Code Dispo: Requires Inpatient Care Visit type - Emergency Visit Emergency Visit: Yes ED Registration Date: 06/28/17 Care time: The patient presented to the Emergency Department on the above date and was hospitalized for further evaluation of their emergent condition. - New Patient This patient is new to me today: No - Critical Care Critical Care patient: No - Discharge Referral Referred to [facility] Med P.C.: Yes Physician Referral: Lawson Marcial MD (Int Med)
[2017-07-01] MEDS ORDERED: SODIUM CHLORIDE 0.9%/KCL 20 MEQ/1,000 ML INFUS.BAG IV SCH (14:01)
[2017-07-01] MEDS: BETHANECHOL CHLORIDE 25 MG TABLET PO SCH ×2 (14:24→21:18)
[2017-07-01] MEDS: TAMSULOSIN HCL 0.4 MG CAP.ER.24H (FP) PO SCH (21:18)
[2017-07-02] MEDS: oxyCODONE HCL 5 MG TABLET PO PRN ×4 (00:15→21:19)
[2017-07-02] MEDS ORDERED: PT OWN MED DRAWER 7, Y5N ONE ×2 (06:17→14:54)
[2017-07-02] MEDS: GABAPENTIN 100 MG CAPSULE (FP) PO SCH ×3 (06:21→21:19)
[2017-07-02] MEDS: PANTOPRAZOLE 40 MG TABLET (FP) PO SCH (06:21)
[2017-07-02] MEDS: BETHANECHOL CHLORIDE 25 MG TABLET PO SCH ×3 (06:21→21:18)
[2017-07-02] MEDS: ZINC SULFATE 220 MG CAPSULE (FP) PO SCH (09:34)
[2017-07-02] MEDS: SPIRONOLACTONE 25 MG TABLET (FP) PO SCH (09:35)
[2017-07-02] MEDS: ENOXAPARIN NA (PORCINE) 40 MG/0.4 ML DISP.SYRIN SQ SCH (09:35)
[2017-07-02] MEDS: MULTIVITAMINS (DAILY MVI) TABLET (FP) PO SCH (09:35)
[2017-07-02] MEDS: TIOTROPIUM BROMIDE 18 MCG/INH (DEVICE W/ 5 CAPSULES) IH SCH (09:35)
[2017-07-02] MEDS: ASPIRIN COATED 81 MG TABLET.EC PO SCH (09:35)
[2017-07-02] MEDS: NICOTINE 14 MG/24 HOURS TOPICAL PATCH TD SCH (09:35)
[2017-07-02] MEDS: ENALAPRIL MALEATE 5 MG TABLET (FP) PO SCH (09:36)
[2017-07-02] MEDS: CHOLECALCIFEROL (VITAMIN D3) 1,000 UNIT TABLET (FP) PO SCH (09:36)
[2017-07-02] MEDS: metoPROLOL SUCCINATE 25 MG TAB.SR.24H (FP) PO SCH (09:36)
[2017-07-02] MEDS: ASCORBIC ACID 500 MG TABLET (FP) PO SCH (10:15)
--- NOTE | 2017-07-02 11:01 | PN ---
Progress Note (short form) - Note Progress Note: Attending Surgeon No c/o;passing flatis and had BM; tolerating clear liquids VSS AF abdomen-soft/flat and non tender IMP: Improved PLAN: advance diet as tolerated José Miguel Coffman MD FACS
[2017-07-02 11:05] LABS: BASO % 0.9 % (0-2.0); EOS % 1.8 % (0-4.5); HEMATOCRIT 28.8 % (32.4-45.2); HEMOGLOBIN 9.6 GM/dl (10.7-15.3); MCH 30.1 pg (25.7-33.7); MCHC 33.3 g/dl (32.0-36.0); MEAN CELL VOLUME 90.2 fl (80-96); MEAN PLT VOLUME 6.6 fl (7.5-11.1); MONO % 7.4 % (3.8-10.2); NEUT % 71.9 % (42.8-82.8); PLATELET COUNT 375 K/MM3 (134-434); RBC 3.19 M/mm3 (3.60-5.2); WHITE BLOOD COUNT 7.2 K/mm3 (4.0-10.8)
[2017-07-02 11:19] LABS: ALK PHOS 95 U/L (32-92); ANION GAP 4 (8-16); BILIRUBIN,TOTAL 0.4 mg/dl (0.2-1.0); BLOOD UREA NITROGEN 9 mg/dl (7-18); CALCIUM 7.7 mg/dl (8.4-10.2); CHLORIDE 106 mmol/L (98-107); CO2 17 mmol/L (22-28); CREATININE 0.4 mg/dl (0.6-1.3); GLUCOSE,RANDOM 128 mg/dl (74-106); MAGNESIUM 1.5 mg/dL (1.8-2.4); PHOSPHOROUS 2.3 mg/dl (2.5-4.6); POTASSIUM 3.7 mmol/L (3.5-5.1); SGOT/AST 17 U/L (10-42); SGPT/ALT 16 U/L (10-40); SODIUM 127 mmol/L (136-145); TOT PROT 4.4 g/dl (6.4-8.3)
[2017-07-02] MEDS ORDERED: MAGNESIUM SULF 50% (8.12 MEQ/2 ML-1 GM VIAL) IVPB ONE (12:22)
--- NOTE | 2017-07-02 12:25 | PN ---
Physical Exam: SUBJECTIVE: Patient seen and examined Pt reports feeling better,had multiple large BM's, denies abdominal pain, N/V or diarrhea. OBJECTIVE: Vital Signs Period Temp Pulse Resp BP Sys/Ornelas Pulse Ox Last 24 Hr 98.0 F-98.0 F 76-77 19-21 106-117/46-59 100-100 GENERAL: The patient is awake, alert, and fully oriented, in no acute distress. HEAD: Normal with no signs of trauma. EYES: PERRL, extraocular movements intact, sclera anicteric, conjunctiva clear. No ptosis. ENT: Ears normal, nares patent, oropharynx clear without exudates, moist mucous membranes. NECK: Trachea midline, full range of motion, supple. LUNGS: Breath sounds equal, clear to auscultation bilaterally, no wheezes, no crackles, no accessory muscle use. HEART: Regular rate and rhythm, S1, S2 without murmur, rub or gallop. ABDOMEN: Soft, non-tender, non-distended, normoactive bowel sounds, no guarding , no rebound, no hepatosplenomegaly, no masses. EXTREMITIES: 2+ pulses, warm, well-perfused, no edema, legs contracted, NEUROLOGICAL: Cranial nerves II through XII grossly intact. Normal speech, gait not observed. PSYCH: Normal mood, normal affect. SKIN: Warm, dry, normal turgor, no rashes,LLE wound intact with dsg Laboratory Results - last 24 hr 07/02/17 07/02/17 10:45 10:45 WBC 7.2 RBC 3.19 L Hgb 9.6 L Hct 28.8 L MCV 90.2 MCH 30.1 MCHC 33.3 RDW 17.0 H Plt Count 375 MPV 6.6 L Neutrophils % 71.9 Lymphocytes % 18.0 Monocytes % 7.4 Eosinophils % 1.8 Basophils % 0.9 Sodium 127 L Potassium 3.7 Chloride 106 Carbon Dioxide 17 L Anion Gap 4 L BUN 9 D Creatinine 0.4 L D Creat Clearance w eGFR > 60 Random Glucose 128 H D Calcium 7.7 L Phosphorus 2.3 L D Magnesium 1.5 L Total Bilirubin 0.4 D AST 17 ALT 16 D Alkaline Phosphatase 95 H Total Protein 4.4 L Albumin 2.0 L Active Medications Generic Name Dose Route Start Last Admin Trade Name Freq PRN Reason Stop Dose Admin Albuterol Sulfate 1 amp 02/07/18 15:14 Ventolin 0.083% Nebulizer Soln - NEB Q4H PRN SHORT OF BREATH/WHEEZING Ascorbic Acid 500 mg 07/01/17 10:00 07/02/17 10:15 Vitamin C - PO 500 mg DAILY MUKUND Administration Aspirin 81 mg 07/01/17 10:00 07/02/17 09:35 Ecotrin - PO 81 mg DAILY MUKUND Administration Bethanechol Chloride 25 mg 07/01/17 14:00 07/02/17 06:21 Urecholine - PO 25 mg TID MUKUND Administration Cholecalciferol 2,000 unit 07/01/17 10:00 07/02/17 09:36 Vitamin D3 - PO 2,000 unit DAILY [facility] Administration Enalapril Maleate 5 mg 07/01/17 10:00 07/02/17 09:36 Vasotec - PO 5 mg DAILY MUKUND Administration Enoxaparin Sodium 40 mg 06/29/17 15:30 07/02/17 09:35 Lovenox - SQ 40 mg DAILY [facility] Administration Gabapentin 100 mg 07/01/17 08:45 07/02/17 06:21 Neurontin - PO 100 mg TID [facility] Administration Magnesium Sulfate 2 gm 07/02/17 12:22 Magnesium Sulfate IVPB 07/02/17 12:23 ONCE ONE Metoprolol Succinate 25 mg 07/01/17 10:00 07/02/17 09:36 Toprol Xl - PO 25 mg DAILY [facility] Administration Multivitamins/Minerals/Vitamin C 1 tab 07/01/17 10:00 07/02/17 09:35 Tab-A-Vit - PO 1 tab DAILY [facility] Administration Nicotine 14 mg 07/01/17 10:00 07/02/17 09:35 Nicoderm Patch - TD 14 mg DAILY [facility] Administration Ondansetron HCl 4 mg 06/28/17 13:59 Zofran Injection IVPUSH Q6H PRN NAUSEA Oxycodone HCl 5 mg 07/02/17 00:10 07/02/17 05:08 Roxicodone - PO 07/03/17 00:09 5 mg Q4H PRN Administration PAIN LEVEL 6-10 Pantoprazole Sodium 40 mg 07/02/17 07:00 07/02/17 06:21 Protonix - PO 40 mg AM [facility] Administration Potassium Phos/Sodium Phos 1 packet 07/02/17 12:30 Phos-Nak Packet - PO DAILY MUKUND Spironolactone 25 mg 07/01/17 10:00 07/02/17 09:35 Aldactone - PO 25 mg DAILY MUKUND Administration Tamsulosin HCl 0.4 mg 07/01/17 22:00 07/01/17 21:18 Flomax - PO 0.4 mg HS MUKUND Administration Tiotropium [place] 1 puff 07/01/17 10:00 07/02/17 09:35 Spiriva - IH 1 puff DAILY MUKUND Administration Zinc Sulfate 220 mg 07/01/17 10:00 07/02/17 09:34 Orazinc - PO 220 mg DAILY MUKUND Administration *IMAGING Chest X-ray: No acute pathology Cat Scan: Report Reviewed (CTAP showed- small bilateral pleural effusions, slight increase in dilated bowel loops throughout abdomen and pelvis. Partial SBO), Abdominal X'ray: Diminished air in large and small bowel EKG: Image Reviewed (Sinus Tachycardia 109bpm, septal infarct age undetermined) Microbiology 06/28/17 13:01 Urine - Urine Clean Catch Urine Culture - Final NO GROWTH OBTAINED ASSESSMENT/PLAN: The patient is a 86 y/o female with a past medical history of paroxysmal afib, copd, pvd, diverticulitis (colectomy), and upper GI Bleed. patient was admitted from the emergency department for recurrent SBO *Bowel Obstruction- resolved - repeat abd xray, 06/30/17, no evidence of obstruction, - NGT out - diet clear liquid senait well, will advance to full and monitor - surgery (Meghna) consulted and following - stool Ob negative * Hyponatremia r/o SIADH - Na 134> 127 with IV hydration - will hold off IVF - check Serum/ urine osmolality - urine Sodium - fluid restriction - f/u on Press Reader * cardiovascular Hypertension- BP stable - will cont on Vasotec and Toprol, b/p at goal, strict mentoring *diastolic congestive heart failure-pt appears euvolemic - strict i/o and daily weights *paroxysmal afib - not on AC, NSR at this time *MS spinal stenosis -PT eval - prn oxycodone - air flow mattress * chronic anemia- Fe deficiency - to start on fe pills once PO senait well - mild drop in H/H likely dilutional *F/E/N - Electrolyte imbalance -low Mg levl 1.5 - replaced - low Phos 2.3 - on replacement -Replete lytes prn DVT/PPI Prophylaxis SCDs/ Lovenox Protonix Code Status: Full Code Dispo: Requires Inpatient Care Visit type - Emergency Visit Emergency Visit: Yes ED Registration Date: 06/28/17 Care time: The patient presented to the Emergency Department on the above date and was hospitalized for further evaluation of their emergent condition. - New Patient This patient is new to me today: Yes Date on this admission: 07/02/17 - Critical Care Critical Care patient: No
[2017-07-02] MEDS: NAPH,MB-DB/K PH,MBDB POWDER PACKET PO SCH (12:58)
[2017-07-02] MEDS: TAMSULOSIN HCL 0.4 MG CAP.ER.24H (FP) PO SCH (21:19)
[2017-07-03] MEDS ORDERED: PT OWN MED DRAWER 7, Y5N ONE ×4 (04:57→21:24)
[2017-07-03] MEDS: BETHANECHOL CHLORIDE 25 MG TABLET PO SCH ×3 (05:35→21:31)
[2017-07-03] MEDS: GABAPENTIN 100 MG CAPSULE (FP) PO SCH ×3 (05:35→22:39)
[2017-07-03] MEDS: PANTOPRAZOLE 40 MG TABLET (FP) PO SCH (06:13)
--- NOTE | 2017-07-03 08:31 | PN ---
Physical Exam: SUBJECTIVE: Patient seen and examined. Awake alert, stats she feels well OBJECTIVE: small bm overnight on a fluid restriction Vital Signs Period Temp Pulse Resp BP Sys/Ornelas Pulse Ox Last 24 Hr 97.5 F-98.0 F 65-88 18-20 101-124/45-54 95-100 GENERAL: The patient is awake, alert, and fully oriented, in no acute distress. HEAD: Normal with no signs of trauma. EYES: PERRL, extraocular movements intact, sclera anicteric, conjunctiva clear. No ptosis. ENT: Ears normal, nares patent, oropharynx clear without exudates, moist mucous membranes. NECK: Trachea midline, full range of motion, supple. LUNGS: Breath sounds diminished, on supplemental oxygen, denies shortness of breath, dry cough HEART: Regular rate and rhythm, S1, S2 without murmur, rub or gallop. ABDOMEN: Soft, non-tender, non-distended, normoactive bowel sounds, no guarding , no rebound, no hepatosplenomegaly, no masses. EXTREMITIES: 2+ pulses, warm, well-perfused, no edema, legs contracted, NEUROLOGICAL: Normal speech, gait not observed. PSYCH: Normal mood, normal affect. SKIN: Warm, dry, normal turgor, no rashes, LLE wound intact with dsg for skin tear Laboratory Results - last 24 hr 07/02/17 07/02/17 07/02/17 10:45 10:45 10:45 WBC 7.2 RBC 3.19 L Hgb 9.6 L Hct 28.8 L MCV 90.2 MCH 30.1 MCHC 33.3 RDW 17.0 H Plt Count 375 MPV 6.6 L Neutrophils % 71.9 Lymphocytes % 18.0 Monocytes % 7.4 Eosinophils % 1.8 Basophils % 0.9 Sodium 127 L Potassium 3.7 Chloride 106 Carbon Dioxide 17 L Anion Gap 4 L BUN 9 D Creatinine 0.4 L D Creat Clearance w eGFR > 60 Random Glucose 128 H D Serum Osmolality 279 Calcium 7.7 L Phosphorus 2.3 L D Magnesium 1.5 L Total Bilirubin 0.4 D AST 17 ALT 16 D Alkaline Phosphatase 95 H Total Protein 4.4 L Albumin 2.0 L Active Medications Generic Name Dose Route Start Last Admin Trade Name Freq PRN Reason Stop Dose Admin Albuterol Sulfate 1 amp 06/29/17 15:14 Ventolin 0.083% Nebulizer Soln - NEB Q4H PRN SHORT OF BREATH/WHEEZING Ascorbic Acid 500 mg 07/01/17 10:00 07/02/17 10:15 Vitamin C - PO 500 mg DAILY MUKUND Administration Aspirin 81 mg 07/01/17 10:00 07/02/17 09:35 Ecotrin - PO 81 mg DAILY MUKUND Administration Bethanechol Chloride 25 mg 07/01/17 14:00 07/03/17 05:35 Urecholine - PO 25 mg TID MUKUND Administration Cholecalciferol 2,000 unit 07/01/17 10:00 07/02/17 09:36 Vitamin D3 - PO 2,000 unit DAILY [facility]UND Administration Enalapril Maleate 5 mg 07/01/17 10:00 07/02/17 09:36 Vasotec - PO 5 mg DAILY [facility]UND Administration Enoxaparin Sodium 40 mg 06/29/17 15:30 07/02/17 09:35 Lovenox - SQ 40 mg DAILY [facility]UND Administration Gabapentin 100 mg 07/01/17 08:45 07/03/17 05:35 Neurontin - PO 100 mg TID MUKUND Administration Metoprolol Succinate 25 mg 07/01/17 10:00 07/02/17 09:36 Toprol Xl - PO 25 mg DAILY MUKUND Administration Multivitamins/Minerals/Vitamin C 1 tab 07/01/17 10:00 07/02/17 09:35 Tab-A-Vit - PO 1 tab DAILY MUKUND Administration Nicotine 14 mg 07/01/17 10:00 07/02/17 09:35 Nicoderm Patch - TD 14 mg DAILY MUKUND Administration Ondansetron HCl 4 mg 06/28/17 13:59 Zofran Injection IVPUSH Q6H PRN NAUSEA Pantoprazole Sodium 40 mg 07/02/17 07:00 07/03/17 06:13 Protonix - PO 40 mg AM MUKUND Administration Potassium Phos/Sodium Phos 1 packet 07/02/17 12:30 07/02/17 12:58 Phos-Nak Packet - PO 1 packet DAILY MUKUND Administration Spironolactone 25 mg 07/01/17 10:00 07/02/17 09:35 Aldactone - PO 25 mg DAILY MUKUND Administration Tamsulosin HCl 0.4 mg 07/01/17 22:00 02/10/18 21:19 Flomax - PO 0.4 mg HS MUKUND Administration Tiotropium [place] 1 puff 07/01/17 10:00 07/02/17 09:35 Spiriva - IH 1 puff DAILY MUKUND Administration Zinc Sulfate 220 mg 07/01/17 10:00 07/02/17 09:34 Orazinc - PO 220 mg DAILY MUKUND Administration ASSESSMENT/PLAN: Patient is an 86 year old female with a significant past medical history of paroxysmal afib, copd, pvd, diverticulitis (colectomy), and upper GI Bleed. Patient was admitted from the emergency department on 06/28/2017 for recurrent SBO. Imaging: Chest X-ray: No acute pathology Cat Scan: Report Reviewed (CTAP showed- small bilateral pleural effusions, slight increase in dilated bowel loops throughout abdomen and pelvis. Partial SBO), Abdominal xray: Diminished air in large and small bowel GI Partial SBO/Bowel obstruction, resolved Tolerating diet, on full liquids Advance as tolerated Surgery following + bowel sounds, no abdominal pain, no nausea or vomiting Electrolyte Imbalance: Hyponatremia r/o SIADH NA > 127 > 129, off IVF Now on fluid restriction of 1 liter Check urine/serum osmolality CMP in a.m. Cardio: Hypertension - BP stable On Vasotec and Toprol Monitor BP Diastolic CHF Monitor intake/output Weight daily paroxysmal afib Not on any a/c, on ASA 81mg Muscular/Skeletal Spinal stenosis, chronic PT evaluation Hematology Chronic anemia hmg/hct low stable Monitor F.E.N. Fluids: tolerating PO, fluid restriction Electrolytes: monitor with daily labs/hypomag, repleted: repeat labs in a.m. Nutrition. full liquid, advance as tolerated Prophylaxis: DVT: SCDs, Lovenox GI: Protonix dksposition: Full Code. Discharge planning. Visit type - Emergency Visit Emergency Visit: Yes ED Registration Date: 06/28/17 Care time: The patient presented to the Emergency Department on the above date and was hospitalized for further evaluation of their emergent condition. - New Patient This patient is new to me today: Yes Date on this admission: 07/03/17 - Critical Care Critical Care patient: No - Discharge Referral Referred to [facility] Med P.C.: No
[2017-07-03 08:51] LABS: BASO % 0.7 % (0-2.0); EOS % 2.2 % (0-4.5); HEMATOCRIT 29.5 % (32.4-45.2); HEMOGLOBIN 9.9 GM/dl (10.7-15.3); LYMPH % 21.1 % (8-40); MCH 30.5 pg (25.7-33.7); MCHC 33.5 g/dl (32.0-36.0); MEAN CELL VOLUME 91.1 fl (80-96); MEAN PLT VOLUME 7.4 fl (7.5-11.1); MONO % 8.9 % (3.8-10.2); NEUT % 67.1 % (42.8-82.8); PLATELET COUNT 351 K/MM3 (134-434); RBC 3.24 M/mm3 (3.60-5.2); RDW 16.8 % (11.6-15.6); WHITE BLOOD COUNT 7.4 K/mm3 (4.0-10.8)
[2017-07-03 09:01] LABS: ADD RBC MORPHOLOGY YES
[2017-07-03] MEDS ORDERED: MAGNESIUM SULF 50% (8.12 MEQ/2 ML-1 GM VIAL) IVPB ONE (09:03)
[2017-07-03] MEDS: CHOLECALCIFEROL (VITAMIN D3) 1,000 UNIT TABLET (FP) PO SCH (09:36)
[2017-07-03] MEDS: ENOXAPARIN NA (PORCINE) 40 MG/0.4 ML DISP.SYRIN SQ SCH (09:37)
[2017-07-03] MEDS: ENALAPRIL MALEATE 5 MG TABLET (FP) PO SCH (09:37)
[2017-07-03] MEDS: MULTIVITAMINS (DAILY MVI) TABLET (FP) PO SCH (09:37)
[2017-07-03] MEDS: TIOTROPIUM BROMIDE 18 MCG/INH (DEVICE W/ 5 CAPSULES) IH SCH (09:37)
[2017-07-03] MEDS: ASCORBIC ACID 500 MG TABLET (FP) PO SCH (09:38)
[2017-07-03] MEDS: ZINC SULFATE 220 MG CAPSULE (FP) PO SCH (09:38)
[2017-07-03] MEDS: SPIRONOLACTONE 25 MG TABLET (FP) PO SCH (09:38)
[2017-07-03] MEDS: NICOTINE 14 MG/24 HOURS TOPICAL PATCH TD SCH (09:38)
[2017-07-03] MEDS: ASPIRIN COATED 81 MG TABLET.EC PO SCH (09:39)
[2017-07-03] MEDS: NAPH,MB-DB/K PH,MBDB POWDER PACKET PO SCH (09:39)
[2017-07-03] MEDS: metoPROLOL SUCCINATE 25 MG TAB.SR.24H (FP) PO SCH (09:39)
[2017-07-03 12:47] LABS: ANISOCYTOSIS 1+; MACROCYTOSIS 1+
[2017-07-03 12:48] LABS: PLATELET ESTIMATE ADEQUATE
[2017-07-03 15:14] LABS: ALK PHOS 103 U/L (32-92); ANION GAP 5 (8-16); BILIRUBIN,TOTAL 0.5 mg/dl (0.2-1.0); BLOOD UREA NITROGEN 7 mg/dl (7-18); CALCIUM 8.1 mg/dl (8.4-10.2); CHLORIDE 108 mmol/L (98-107); CO2 16 mmol/L (22-28); CREATININE 0.5 mg/dl (0.6-1.3); GLUCOSE,RANDOM 115 mg/dl (74-106); POTASSIUM 4.8 mmol/L (3.5-5.1); SGOT/AST 23 U/L (10-42); SGPT/ALT 14 U/L (10-40); SODIUM 129 mmol/L (136-145); TOT PROT 4.4 g/dl (6.4-8.3)
[2017-07-03] MEDS: TAMSULOSIN HCL 0.4 MG CAP.ER.24H (FP) PO SCH (21:31)
[2017-07-04 05:56] VITALS: BP 105/53; PULSE 57; TEMP 98.3
[2017-07-04] MEDS ORDERED: PT OWN MED DRAWER 7, Y5N ONE ×2 (06:07→09:51)
[2017-07-04] MEDS: GABAPENTIN 100 MG CAPSULE (FP) PO SCH ×2 (06:08→14:02)
[2017-07-04] MEDS: BETHANECHOL CHLORIDE 25 MG TABLET PO SCH ×2 (06:08→14:03)
[2017-07-04] MEDS: PANTOPRAZOLE 40 MG TABLET (FP) PO SCH (06:09)
[2017-07-04 08:44] LABS: ALK PHOS 109 U/L (32-92); ANION GAP 6 (8-16); BILIRUBIN,TOTAL 0.6 mg/dl (0.2-1.0); BLOOD UREA NITROGEN 6 mg/dl (7-18); CALCIUM 8.1 mg/dl (8.4-10.2); CHLORIDE 106 mmol/L (98-107); CO2 21 mmol/L (22-28); CREATININE 0.4 mg/dl (0.6-1.3); GLUCOSE,RANDOM 100 mg/dl (74-106); POTASSIUM 4.3 mmol/L (3.5-5.1); SGOT/AST 15 U/L (10-42); SGPT/ALT 17 U/L (10-40); SODIUM 133 mmol/L (136-145); TOT PROT 4.5 g/dl (6.4-8.3)
[2017-07-04 08:46] LABS: BASO % 0.3 % (0-2.0); EOS % 1.4 % (0-4.5); HEMATOCRIT 31.9 % (32.4-45.2); HEMOGLOBIN 10.7 GM/dl (10.7-15.3); LYMPH % 15.9 % (8-40); MCH 30.2 pg (25.7-33.7); MCHC 33.5 g/dl (32.0-36.0); MEAN CELL VOLUME 90.1 fl (80-96); MEAN PLT VOLUME 7.3 fl (7.5-11.1); NEUT % 76.4 % (42.8-82.8); PLATELET COUNT 358 K/MM3 (134-434); RBC 3.54 M/mm3 (3.60-5.2); RDW 17.5 % (11.6-15.6); WHITE BLOOD COUNT 7.6 K/mm3 (4.0-10.8)
[2017-07-04] MEDS: ENOXAPARIN NA (PORCINE) 40 MG/0.4 ML DISP.SYRIN SQ SCH (09:19)
[2017-07-04] MEDS: ENALAPRIL MALEATE 5 MG TABLET (FP) PO SCH (09:20)
[2017-07-04] MEDS: ZINC SULFATE 220 MG CAPSULE (FP) PO SCH (09:20)
[2017-07-04] MEDS: ASCORBIC ACID 500 MG TABLET (FP) PO SCH (09:20)
[2017-07-04] MEDS: ASPIRIN COATED 81 MG TABLET.EC PO SCH (09:20)
[2017-07-04] MEDS: metoPROLOL SUCCINATE 25 MG TAB.SR.24H (FP) PO SCH (09:20)
[2017-07-04] MEDS: NICOTINE 14 MG/24 HOURS TOPICAL PATCH TD SCH (09:20)
[2017-07-04] MEDS: CHOLECALCIFEROL (VITAMIN D3) 1,000 UNIT TABLET (FP) PO SCH (09:20)
[2017-07-04] MEDS: SPIRONOLACTONE 25 MG TABLET (FP) PO SCH (09:20)
[2017-07-04] MEDS: MULTIVITAMINS (DAILY MVI) TABLET (FP) PO SCH (09:20)
[2017-07-04] MEDS: NAPH,MB-DB/K PH,MBDB POWDER PACKET PO SCH (09:21)
[2017-07-04] MEDS: TIOTROPIUM BROMIDE 18 MCG/INH (DEVICE W/ 5 CAPSULES) IH SCH (09:21)
[2017-07-04] MEDS ORDERED: KETOROLAC TROMETHAMINE 30 MG/1 ML VIAL IVPUSH ONE (09:45)
--- NOTE | 2017-07-04 12:36 | DS ---
Physical Exam: SUBJECTIVE: Patient seen and examined, tolerating regular diet, denies any abdominal pain, ready for discharge OBJECTIVE: patient is a 86 y/o woman from [facility] sent in to the ED for evaluation of dark brown emesis x3 episodes this am. Patient reports having a "burning sensation" in her abdomen with episodes of non-bilious vomiting and watery stools. Patient denies fever, chills, cough, dizziness, SOB, CP. Patient was admitted recently for SBO (cleared without intervention) Per ED records, patient had an Endoscopy [address] Damon Vital Signs Period Temp Pulse Resp BP Sys/Ornelas Pulse Ox Last 24 Hr 98.0 F-98.8 F 57-87 18-19 105-115/42-65 96-99 PHYSICAL EXAM GENERAL: The patient is awake, alert, and fully oriented, in no acute distress. HEAD: Normal with no signs of trauma. EYES: PERRL, extraocular movements intact, sclera anicteric, conjunctiva clear. No ptosis. ENT: Ears normal, nares patent, oropharynx clear without exudates, moist mucous membranes. NECK: Trachea midline, full range of motion, supple. LUNGS: Breath sounds equal, clear to auscultation bilaterally, no wheezes, no crackles, no accessory muscle use. HEART: Regular rate and rhythm, S1, S2 without murmur, rub or gallop. ABDOMEN: Soft, non-tender, non-distended, normoactive bowel sounds, no guarding , no rebound, no hepatosplenomegaly, no masses. EXTREMITIES: 2+ pulses, warm, well-perfused, no edema, legs contracted, NEUROLOGICAL: Cranial nerves II through XII grossly intact. Normal speech, gait not observed. PSYCH: Normal mood, normal affect. SKIN: Warm, dry, normal turgor, no rashes,LLE wound intact with dsg LABS Laboratory Results - last 24 hr 07/03/17 07/03/17 07/03/17 06:50 12:00 14:35 WBC RBC Hgb Hct MCV MCH MCHC RDW Plt Count MPV Neutrophils % Lymphocytes % Monocytes % Eosinophils % Basophils % Hypochromia 1+ Platelet Estimate Adequate Anisocytosis 1+ Macrocytosis 1+ Sodium 129 L Potassium 4.8 D Chloride 108 H Carbon Dioxide 16 L Anion Gap 5 L BUN 7 D Creatinine 0.5 L D Creat Clearance w eGFR > 60 Random Glucose 115 H Calcium 8.1 L Total Bilirubin 0.5 D AST 23 D ALT 14 Alkaline Phosphatase 103 H Total Protein 4.4 L Albumin 2.0 L Urine Osmolality 430 07/04/17 07/04/17 07:30 07:30 WBC 7.6 RBC 3.54 L Hgb 10.7 Hct 31.9 L MCV 90.1 MCH 30.2 MCHC 33.5 RDW 17.5 H Plt Count 358 MPV 7.3 L Neutrophils % 76.4 Lymphocytes % 15.9 Monocytes % 6.0 Eosinophils % 1.4 Basophils % 0.3 Hypochromia Platelet Estimate Anisocytosis Macrocytosis Sodium 133 L Potassium 4.3 Chloride 106 Carbon Dioxide 21 L D Anion Gap 6 L BUN 6 L Creatinine 0.4 L Creat Clearance w eGFR > 60 Random Glucose 100 Calcium 8.1 L Total Bilirubin 0.6 AST 15 D ALT 17 D Alkaline Phosphatase 109 H Total Protein 4.5 L Albumin 2.0 L Urine Osmolality Microbiology 06/28/17 13:01 Urine - Urine Clean Catch Urine Culture - Final NO GROWTH OBTAINED Imaging: Chest X-ray: No acute pathology Cat Scan: Report Reviewed (CTAP showed- small bilateral pleural effusions, slight increase in dilated bowel loops throughout abdomen and pelvis. Partial SBO), Abdominal xray: Diminished air in large and small bowel HOSPITAL COURSE: Patient was admitted from the emergency department for Partial SBO/Bowel obstruction, resolved after NGT and bowel rest. Patient tolerated diet. patient was noted to have hyponatremia secondary to SBO, resolved, serum sodium 133. patient has a past medical history of hypertension, b/p remained at goal, vasotec and toprol was continued throughout admission. patient has a pmh of paroxysmal afib, not on any AC, ASA continued. PLAN - discharge to short term rehab - soft diet - continue all medications as prescribed Date of Admission:06/28/17 Date of Discharge: 07/04/17 Minutes to complete discharge: 45 Discharge Summary Reason For Visit: PARTIAL SBO Current Active Problems COPD (chronic obstructive pulmonary disease) (Acute) DVT prophylaxis (Acute) Functional quadriplegia (Acute) Intractable nausea and vomiting (Acute) Condition: Improved - Instructions Diet, Activity, Other Instructions: resume soft diet continue all medications as prescribed if any new or persistent symptoms develop please return to the emergency department Disposition: HALF-WAY FACILITY - Home Medications Comprehensive Discharge Medication List: Ambulatory Orders Aa/Hydrolyzed Collagen, Whey [Lps Neutral Flavor Liquid] 30 ml PO BID 06/28/17 Acetaminophen [Tylenol] 650 mg PO Q6H PRN 06/28/17 Albuterol Sulfate Inhaler - [Ventolin Hfa Inhaler -] 1 inh PO Q4H PRN 06/28/17 Ascorbate Calcium [Vitamin C] 500 mg PO DAILY 06/28/17 Aspirin [Aspirin EC] 81 mg PO DAILY 06/28/17 Bethanechol Chloride [Urecholine -] 25 mg PO TID 06/28/17 Bisacodyl [Dulcolax] 10 mg RC Q24H PRN 06/28/17 Bismuth Tribromoph/Petrolatum [Xeroform Petrolatum Dress] 1 each TP ASDIR Budesonide/Formeterol Fumarate [SYMBICORT 160/4.5mcg -] 2 inh PO BID 06/28/17 Cholecalciferol (Vitamin D3) [Vitamin D] 2,000 unit PO DAILY 06/28/17 Enalapril Maleate 5 mg PO DAILY 06/28/17 Enoxaparin [Lovenox -] 40 mg SQ DAILY 06/28/17 Famotidine [Pepcid] 20 mg PO BID 06/28/17 Gabapentin 100 mg PO Q8H PRN 06/28/17 Magnesium Hydrox 2400MG/30Ml [Milk of Magnesia -] 30 ml PO Q24H PRN 06/28/17 Metoprolol Succinate [Toprol Xl] 25 mg PO DAILY 06/28/17 Multivitamin [One Daily] 1 each PO DAILY 06/28/17 Nicotine [Nicotine Patch] 1 each TD DAILY 06/28/17 Ondansetron Injection [Zofran Injection] 4 mg IVPB Q8H PRN 06/28/17 Oxycodone HCl 5 mg PO QID 06/28/17 Pantoprazole Sodium 40 mg PO AM 06/28/17 Spironolactone 25 mg PO DAILY 06/28/17 Tamsulosin HCl [Flomax] 0.4 mg PO HS 06/28/17 Tetracaine/Benzocaine/Butamben [Cetacaine [place] -] 1 spray TP Q4H PRN 06/28/17 Tiotropium [place] [Spiriva] 1 inh PO DAILY 06/28/17 Zinc Sulfate [Orazinc] 220 mg PO DAILY 06/28/17 This patient is new to me today: No Emergency Visit: Yes ED Registration Date: 06/28/17 Care time: The patient presented to the Emergency Department on the above date and was hospitalized for further evaluation of their emergent condition. Critical Care patient: No - Discharge Referral Referred to [facility] Med P.C.: Yes Physician Referral: Lawson Marcial MD (Int Med)
== END 2017-07-04 15:23 | DRG 392 ==
LOC: FER 11:09 → FM/S 15:51
PROVIDERS: ADMIT Internal Medicine; ATTEND Nurse Practitioner Family
PROC: 0T9B70Z Drainage of Bladder with Drainage Device, Via Natural or Artificial Opening (ICD-10-PCS; principal; 2017-06-29)
DX: K59.03 Drug induced constipation (principal); E87.1 Hypo-osmolality and hyponatremia; I50.32 Chronic diastolic (congestive) heart failure; J44.9 Chronic obstructive pulmonary disease, unspecified; I11.0 Hypertensive heart disease with heart failure; I50.9 Heart failure, unspecified; I73.9 Peripheral vascular disease, unspecified; K57.30 Diverticulosis of large intestine without perforation or abscess without bleeding; K59.04 Chronic idiopathic constipation; T40.2X5S Adverse effect of other opioids, sequela; I25.10 Atherosclerotic heart disease of native coronary artery without angina pectoris; D64.9 Anemia, unspecified; F17.210 Nicotine dependence, cigarettes, uncomplicated; Z74.01 Bed confinement status; M62.49 Contracture of muscle, multiple sites; R33.9 Retention of urine, unspecified; Z96.641 Presence of right artificial hip joint; I48.0 Paroxysmal atrial fibrillation; M48.00 Spinal stenosis, site unspecified; Z90.49 Acquired absence of other specified parts of digestive tract
CPT/HCPCS: 36415; 71045-TC-FY; 74018-TC-FY; 74176-TC; 80048; 80053; 81003; 82272; 82550; 83690; 83735; 83930; 83935; 84100; 84300; 84484; 85025; 85027; 85610; 86850; 86900; 86901; 87086; 93005; 97116-GP; 97161-GP; 99285-25; E0186